=== PATIENT | female | born 1940 | race African-American/Black ===

== ENCOUNTER 2017-08-16 13:33 | Inpatient (IN) | payer MEDICAID ==
[~2017-08-16] VITALS: Ht 160 cm; Wt 78.5 kg
[~2017-08-16 13:33] MED LIST: ASPI-1169 PO; CLON0.1T PO; FURO20TA4 PO; LABE200T5 PO; LOSA100T15 PO; METF-440 PO; MULT1TAB73 PO
--- NOTE | 2017-08-16 13:50 | NUR ---
PATIENT TO ED DT GENERALIZED WEAKNESS SINCE LAST NIGHT. PATIENT IS AWAKE AMD ALERT. APPEARS IN NO DISTRESS. RESPIRATION EVEN AND UNLABORED. SKIN IS WARM TO TOUCH AND NON DIAPHORETIC, PATIENT IS AFEBRILE. VSS
[2017-08-16] MEDS ORDERED: IBUPROFEN 600 MG TABLET PO ONE ×2 (14:00→14:03)
[2017-08-16] MEDS ORDERED: IV NS 0.9% 500 ML BAG IV ONE (14:00)
[2017-08-16 14:25] LABS: BASOPHILS # (AUTO) 0.1 /CMM (0.0-0.2); BASOPHILS % (AUTO) 0.7 % (0.0-2.0); EOSINOPHILS % (AUTO) 0.1 % (0.0-6.0); HEMATOCRIT 32 % (33-45); LYMPHOCYTES # (AUTO) 1.3 /CMM (0.8-4.8); LYMPHOCYTES % (AUTO) 12.6 % (20.0-44.0); MEAN CORPUSCULAR HGB CONC 34 g/dl (31.0-36.0); MEAN CORPUSCULAR VOLUME 82 fL (82-100); MONOCYTES # (AUTO) 1.2 /CMM (0.1-1.30); MONOCYTES % (AUTO) 11.8 % (2.0-12.0); NEUTROPHILS % (AUTO) 74.8 % (43.0-81.0); PLATELET COUNT (AUTO) 149 /CMM (150-450); RDW COEFFICIENT OF VARIATION 14.4 (11.5-15.0); RED BLOOD CELL COUNT(AUTO) 3.89 MIL/uL (4.0-5.2); WHITE BLOOD COUNT (AUTO) 10.6 K/uL (4.3-11.0)
[2017-08-16 14:38] LABS: INR 1.05 (0.85-1.15)
[2017-08-16 14:41] LABS: ALANINE AMINOTRANSFERASE 171 U/L (12-78); ALBUMIN 3.2 g/dL (3.4-5.0); ALKALINE PHOSPHATASE 228 U/L (46-116); ASPARTATE AMINOTRANSFERASE 246 U/L (15-37); BILIRUBIN,DIRECT 0.2 mg/dL (0.0-0.2); BILIRUBIN,TOTAL 0.4 mg/dL (0.2-1.0); CALCIUM, SERUM 8.1 mg/dL (8.5-10.1); CARBON DIOXIDE 26 mmol/L (21-32); CHLORIDE 100 mmol/L (98-107); CREATININE 1.1 mg/dL (0.6-1.3); GLUCOSE 201 mg/dL (74-106); SODIUM SERUM 137 mmol/L (136-145); TOTAL PROTEIN, SERUM 7.4 g/dL (6.4-8.2); UREA NITROGEN, BLOOD 14 mg/dL (7-18)
[2017-08-16 14:43] LABS: TROPONIN I < 0.017 ng/mL (0.00-0.056)
[2017-08-16 14:46] LABS: POTASSIUM 2.4 mmol/L (3.5-5.1)
[2017-08-16] MEDS ORDERED: POTASSIUM CL. PREMIX PERIPHER. 50 ML IV SCH (15:00)
--- NOTE | 2017-08-16 15:17 | NUR ---
CALLED [employer] FLOORING MACHINE OPERATOR WAS PAGED.
[2017-08-16] MEDS ORDERED: POTASSIUM CHLORIDE 20 MEQ TAB.PRT.SR PO ONE ×2 (15:30→16:02)
[2017-08-16] MEDS ORDERED: IOHEXOL-350 100 ML VIAL IV ONE (15:54)
[2017-08-16 15:58] LABS: APPEARANCE,URINE Clear (CLEAR); BILIRUBIN,URINE Negative (NEGATIVE); BLOOD, URINE Small Ery/uL (NEGATIVE); COLOR,URINE Yellow (YELLOW); KETONES,URINE Negative (NEGATIVE); LEUKOCYTE ESTERASE ,URINE Trace (NEGATIVE); NITRITE, URINE Negative (NEGATIVE); PH,URINE 5.5 (5.0-8.0); PROTEIN,URINE 30 mg/dl (NEGATIVE); UGLUCOSE 250 MG/DL mg/dL (NEGATIVE); UROBILINOGEN,URINE 0.2 EU/dL (0.2)
[2017-08-16] MEDS ORDERED: POTASSIUM CL. PREMIX PERIPHER. 50 ML ONE (16:03)
[2017-08-16] MEDS ORDERED: PANT40TA2 PO (16:06)
[2017-08-16] MEDS ORDERED: INSU10VI3 SQ ×2 (16:06)
[2017-08-16] MEDS ORDERED: AMLO10TA6 PO (16:06)
[2017-08-16 16:11] LABS: BACTERIA,URINE Rare /HPF (None Seen); RBC,URINE 0-3 /HPF (0-2); SQUAMOUS EPITHELIAL CELL,UR Few /HPF (None Seen)
--- NOTE | 2017-08-16 16:44 | NUR ---
REPORT GIVEN TO RN RN. PATIENT TO START MAGNESIUM IN THE FLOOR AND WILL CONTINUE WITH POTASSIUM ORDERED
[2017-08-16] MEDS ORDERED: Z GUARD REMEDY 2 OZ OINT TP PRN (17:00)
[2017-08-16] MEDS ORDERED: ONDANSETRON HCL/PF 4 MG/2 ML VIAL IVP PRN (17:00)
[2017-08-16] MEDS ORDERED: DEXTROSE 50%-WATER 50 ML DISP.SYRIN IV PRN (17:00)
[2017-08-16] MEDS ORDERED: ZOLPIDEM TARTRATE 5 MG TABLET PO PRN (17:00)
[2017-08-16] MEDS ORDERED: HYDROCODONE/APAP 5/325MG 1 EACH TABLET PO PRN (17:00)
[2017-08-16] MEDS ORDERED: MAG HYDROX/AL HYDROX/SIMETH 30 ML UDC PO PRN (17:00)
[2017-08-16 17:08] VITALS: BP 153/63
--- NOTE | 2017-08-16 17:08 | NUR ---
SERVICE DESK ANALYST NOTES PATIENT ARRIVED VIA GURNEY FROM ER. DX DEHYDRATION, BY MENG SEGOVIA. AAO X 3, WITH DAUGHTER AND GRAND DAUGHTER. ON ROOM AIR OS SAT AT 100. NO SOB, NO PAIN, SR HR 83 ON TELE MONITOR. ONGOING 1ST BAG OF KCL 10 MEQS [ ORDERED AT ER WAS 40 MEQS] TO RT HAND G20. SITE CLEAR. AMBULATORY. SKIN INTACT. UNIT ORIENTATION DONE AND USE OF CALL LIGHT. BELONGINGS CHECKED. SAFETY MEASURES IN PLACE. WILL CONT TO MONITOR.
--- NOTE | 2017-08-16 17:36 | NUR ---
RADARMAN NOTES MENG SEGOVIA AT BEDSIDE.
[2017-08-16] MEDS: IV NS 0.9% 1,000 ML IV PRN (17:43)
[2017-08-16] MEDS: Magnesium 1GM/D5W 100ML PREMIX 100 ML IV SCH ×4 (17:55→21:48)
--- NOTE | 2017-08-16 17:55 | NUR ---
CONTROL DIRECTOR NOTES MAGNESIUM IV BAG #1 [1/2 BAG ORDERED AT ER] STARTED ON THE FLOOR.
[2017-08-16] MEDS: ENOXAPARIN SODIUM 40 MG/0.4 ML DISP.SYRIN SQ SCH ×2 (18:08→20:10)
[2017-08-16] MEDS: BLOOD SUGAR DIAGNOSTIC 1 EACH STRIP VI SCH ×2 (18:11→22:11)
[2017-08-16] MEDS: Potassium Chloride 10 MEQ, LIDOCAINE HCL/PF 1% 1 ML in IV D5W 50 ML IV SCH ×2 (18:47→20:27)
--- NOTE | 2017-08-16 18:47 | NUR ---
HOUSEKEEPING ASSISTANT NOTES PER MENG SEGOVIA ROCKET SCIENTIST, SHE WILL RE ORDER FOR KCL. PATIENT RECEIVED AT ER 40 MEQS KDUR AND 10 MEQS IV KCL. STARTED KCL BAG #1. STARTED MAGNESIUM IV 2/2.
--- NOTE | 2017-08-16 19:58 | NUR ---
RELAY SHOP TESTER NOTES PATIENT RESTING COMFORTABLY. ALL NEEDS MET AND ANTICIPATED. NO OTHER SIGNIFICANT CHANGE IN CONDITION. SAFETY MEASURES IN PLACE. ENDORSED TO NEXT SHIFT FOR GAGE.
[2017-08-16 20:00] VITALS: BP 154/64
--- NOTE | 2017-08-16 20:00 | NUR ---
RN INITIAL NOTES RECEIVED PATIENT RESTING IN BED.PT A&O X 3, ON ROOM AIR OS SAT AT 100. NO SOB, NO PAIN, SR HR 72 ON TELE MONITOR. IV IN RT HAND G20, SITE CLEAR. AMBULATORY. SKIN INTACT. SAFETY MEASURES IN PLACE. WILL CONT TO MONITOR.
[2017-08-16] MEDS: LABETALOL HCL (100MG) 100 MG TABLET PO SCH (20:26)
[2017-08-16] MEDS: METRONIDAZOLE 500MG/ NS 100ML 500 MG in PREMIX 1 EA IV SCH (22:11)
[2017-08-16] MEDS: *INSULIN REGULAR(HUMULIN R)HUM 100 UNIT/ML VIAL SQ PRN (22:19)
[2017-08-16] MEDS: ACETAMINOPHEN 325 MG TABLET PO PRN (23:40)
[2017-08-17] VITALS: BP 133/71
[2017-08-17 04:00] VITALS: BP 145/57
[2017-08-17] MEDS: METRONIDAZOLE 500MG/ NS 100ML 500 MG in PREMIX 1 EA IV SCH ×2 (05:52→10:26)
--- NOTE | 2017-08-17 06:30 | NUR ---
RN CLOSING NOTES PT REMAIN STABLE OVER NIGHT, ALL MEDICATIONS GIVEN ORDERED. PT KEPT SAFE OVER NIGHT. ALL NEEDS ATTENDED. WILL ENDORSE TO AM RN
--- NOTE | 2017-08-17 07:20 | NUR ---
RN NOTES RECEIVED PATIENT RESTING IN BED.PT A&O X 3. NO SOB, NO PAIN, SR HR 72 ON TELE MONITOR. IV IN RT HAND G20, SITE CLEAR. AMBULATORY. SKIN INTACT. SAFETY MEASURES IN PLACE. BED LOCKED AND LOWEST POSITION. CALL LIGHT WITHIN REACH. WILL CONT TO MONITOR. Addendum: 08/17/17 at 0753 by SONAL LITTLE RN PT HAS IV FLUIDS INTACT 75 CC. PLAN OF CARE DISCUSSED WITH PT Addendum: 08/17/17 at 0754 by SONAL LITTLE RN 75ML PER HOUR
[2017-08-17 07:26] LABS: BASOPHILS % (AUTO) 0.3 % (0.0-2.0); EOSINOPHILS % (AUTO) 0.7 % (0.0-6.0); HEMATOCRIT 32 % (33-45); HEMOGLOBIN 10.7 g/dL (11.5-14.8); LYMPHOCYTES # (AUTO) 2.1 /CMM (0.8-4.8); LYMPHOCYTES % (AUTO) 18.8 % (20.0-44.0); MEAN CORPUSCULAR HGB CONC 34 g/dl (31.0-36.0); MEAN CORPUSCULAR VOLUME 84 fL (82-100); MONOCYTES # (AUTO) 2.3 /CMM (0.1-1.30); MONOCYTES % (AUTO) 20.6 % (2.0-12.0); NEUTROPHILS # (AUTO) 6.6 /CMM (1.8-8.9); NEUTROPHILS % (AUTO) 59.6 % (43.0-81.0); PLATELET COUNT (AUTO) 134 /CMM (150-450); RDW COEFFICIENT OF VARIATION 15.6 (11.5-15.0); RED BLOOD CELL COUNT(AUTO) 3.81 MIL/uL (4.0-5.2); WHITE BLOOD COUNT (AUTO) 11.1 K/uL (4.3-11.0)
[2017-08-17 07:38] LABS: CALCIUM, SERUM 7.5 mg/dL (8.5-10.1); CARBON DIOXIDE 24 mmol/L (21-32); CHLORIDE 103 mmol/L (98-107); GLUCOSE 174 mg/dL (74-106); MAGNESIUM 1.7 mg/dL (1.8-2.4); PHOSPHORUS 2.4 mg/dL (2.5-4.9); SODIUM SERUM 138 mmol/L (136-145); UREA NITROGEN, BLOOD 10 mg/dL (7-18)
[2017-08-17 08:00] VITALS: BP 138/51
[2017-08-17 08:01] LABS: CHOLESTEROL 121 mg/dL (<200); HDL CHOLESTEROL 51 mg/dL (40-60); LDL 61 mg/dL (0-99); TRIGLYCERIDES 45 mg/dL (30-150)
[2017-08-17] MEDS: ACETAMINOPHEN 325 MG TABLET PO PRN ×2 (08:28→21:21)
[2017-08-17] MEDS: INSULIN REGULAR, HUMAN 100 UNIT/ML 3 ML VIAL SQ PRN ×2 (08:29→17:26)
[2017-08-17] MEDS: AMLODIPINE BESYLATE 10 MG TABLET PO SCH (08:31)
[2017-08-17] MEDS: LABETALOL HCL (100MG) 100 MG TABLET PO SCH ×2 (08:31→21:10)
[2017-08-17] MEDS: ASPIRIN 81 MG TAB.CHEW PO SCH (08:31)
[2017-08-17] MEDS: BLOOD SUGAR DIAGNOSTIC 1 EACH STRIP VI SCH ×4 (08:32→21:16)
[2017-08-17] MEDS: PANTOPRAZOLE 40 MG TABLET.DR PO SCH (08:33)
[2017-08-17 09:47] LABS: BAND % (MANUAL) 20 % (0.0-5.0); LYMPHOCYTES % (MANUAL) 20 % (16-48); MONOCYTES % (MANUAL) 19 % (0-11.0); NEUTROPHILS % (MANUAL) 41 (42-76)
[2017-08-17] MEDS: Magnesium 1GM/D5W 100ML PREMIX 100 ML IV SCH ×2 (11:35→12:34)
[2017-08-17] MEDS ORDERED: POTASSIUM CHLORIDE 20 MEQ TAB.PRT.SR PO ONE (12:30)
[2017-08-17] MEDS: *INSULIN REGULAR(HUMULIN R)HUM 100 UNIT/ML VIAL SQ PRN ×2 (12:37→21:19)
--- NOTE | 2017-08-17 13:29 | NUR ---
ELECTRIFIER OPERATOR NOTES CONSENT FOR CT SCAN OBTAINED. FAMILY AT BEDSIDE. WILL CONTINUE TO MONITOR
[2017-08-17] MEDS ORDERED: K PHOS NEUTRAL 250 MG TABLET PO ONE (14:30)
[2017-08-17] MEDS: PIPERACILLIN /TAZOBACTAM 2.25 G in IV D5W 50 ML IV SCH ×2 (14:31→22:18)
[2017-08-17] MEDS: IV NS 0.9% 1,000 ML IV PRN (14:31)
[2017-08-17 16:00] VITALS: BP 135/47
--- NOTE | 2017-08-17 16:06 | NUR ---
MS RN NOTE STOOL FOR CDIF COLLECTED ORDERED
--- NOTE | 2017-08-17 16:10 | NUR ---
MS RN NOTE ENDORSED CARE TO HAYDER OLIVEIRA
--- NOTE | 2017-08-17 16:11 | NUR ---
MS RN NOTES RECEIVED REPORT FROM HOMERO OLIVEIRA FOR GAGE.
[2017-08-17] MEDS ORDERED: CT SWABBABLE VALVE TRANS SET 1 EA INFUS.SET MC ONE (16:31)
[2017-08-17] MEDS ORDERED: IOHEXOL-300 100 ML VIAL IV ONE (16:31)
[2017-08-17] MEDS ORDERED: LEVOFLOXACIN 500 MG /D5W 100ML 500 MG in PREMIX 1 EA IV SCH (18:00)
--- NOTE | 2017-08-17 19:26 | NUR ---
DEBONER CLOSING NOTES PATIENT RESTING COMFORTABLY. CAME FROM CT OF ABDOMEN WITH CONTRAST AWAITING RESULT. IVF IN SITU INFUSING WELL. SITE CLEAR. ONGOING LEVAQUIN IV. ALL NEEDS MET AND ANTICIPATED. NO OTHER SIGNIFICANT CHANGE IN CONDITION. SAFETY MEASURES IN PLACE. CALL LIGHT WITHIN REACH. WILL ENDORSE TO NEXT SHIFT FOR GAGE.
[2017-08-17 20:00] VITALS: BP 153/64
--- NOTE | 2017-08-17 20:00 | NUR ---
RN INITIAL NOTES RECEIVED PATIENT RESTING IN BED.PT A&O X 3. DAUGHTER AT BED SIDE. ON ROOM AIR OS SAT AT 100. NO SOB, NO PAIN, SR HR 72 ON TELE MONITOR. IV IN RT HAND G20,PATENT AND INTACT, IV FLUIDS INFUSING. AMBULATORY. SKIN INTACT. SAFETY MEASURES IN PLACE. WILL CONT TO MONITOR.
[2017-08-17 20:35] VITALS: BP 143/56
[2017-08-17] MEDS: ENOXAPARIN SODIUM 40 MG/0.4 ML DISP.SYRIN SQ SCH (21:11)
[2017-08-18] MEDS: PIPERACILLIN /TAZOBACTAM 2.25 G in IV D5W 50 ML IV SCH ×2 (03:59→08:40)
[2017-08-18 04:00] VITALS: BP 138/61
--- NOTE | 2017-08-18 07:00 | NUR ---
RN NOTES RECEIVED PT ON BED, A/Ox3, RESPIRATION EVEN AND UNLABORED, ON RA , YARI ANY DISTRESS AT THIS TIME, NS AT 75CC/HR RUNNING VA R FA IV SITE G 20 , SR UP x3, CALL LIGHT WITHIN EASY REACH, BED LOCKED AND IN LOWEST POSITION , CONTINUE TO MONITOR .
[2017-08-18] MEDS: BLOOD SUGAR DIAGNOSTIC 1 EACH STRIP VI SCH ×4 (07:30→21:04)
--- NOTE | 2017-08-18 07:34 | NUR ---
RN CLOSING NOTES PATIENT RESTING COMFORTABLY. IVF INFUSING WELL. SITE CLEAR. ALL NEEDS MET AND ANTICIPATED. NO OTHER SIGNIFICANT CHANGE IN CONDITION. SAFETY MEASURES IN PLACE. CALL LIGHT WITHIN REACH. WILL ENDORSE TO NEXT SHIFT FOR GAGE.
[2017-08-18 07:50] LABS: ALANINE AMINOTRANSFERASE 83 U/L (12-78); ALBUMIN 2.4 g/dL (3.4-5.0); ALKALINE PHOSPHATASE 146 U/L (46-116); ASPARTATE AMINOTRANSFERASE 41 U/L (15-37); BILIRUBIN,DIRECT 0.2 mg/dL (0.0-0.2); BILIRUBIN,TOTAL 0.4 mg/dL (0.2-1.0); CALCIUM, SERUM 7.5 mg/dL (8.5-10.1); CARBON DIOXIDE 24 mmol/L (21-32); CHLORIDE 104 mmol/L (98-107); CREATININE 1.1 mg/dL (0.6-1.3); GLUCOSE 132 mg/dL (74-106); PHOSPHORUS 2.6 mg/dL (2.5-4.9); POTASSIUM 3.3 mmol/L (3.5-5.1); SODIUM SERUM 139 mmol/L (136-145); TOTAL PROTEIN, SERUM 6.4 g/dL (6.4-8.2); UREA NITROGEN, BLOOD 8 mg/dL (7-18)
[2017-08-18 08:00] VITALS: BP 107/56
[2017-08-18 08:01] LABS: BASOPHILS % (AUTO) 0.4 % (0.0-2.0); HEMATOCRIT 31 % (33-45); HEMOGLOBIN 10.2 g/dL (11.5-14.8); LYMPHOCYTES # (AUTO) 2.7 /CMM (0.8-4.8); LYMPHOCYTES % (AUTO) 32.3 % (20.0-44.0); MEAN CORPUSCULAR HGB CONC 33 g/dl (31.0-36.0); MEAN CORPUSCULAR VOLUME 84 fL (82-100); MONOCYTES # (AUTO) 1.3 /CMM (0.1-1.30); MONOCYTES % (AUTO) 15.2 % (2.0-12.0); NEUTROPHILS # (AUTO) 4.3 /CMM (1.8-8.9); NEUTROPHILS % (AUTO) 51.1 % (43.0-81.0); PLATELET COUNT (AUTO) 135 /CMM (150-450); RDW COEFFICIENT OF VARIATION 15.2 (11.5-15.0); RED BLOOD CELL COUNT(AUTO) 3.71 MIL/uL (4.0-5.2); WHITE BLOOD COUNT (AUTO) 8.5 K/uL (4.3-11.0)
[2017-08-18] MEDS: ASPIRIN 81 MG TAB.CHEW PO SCH (08:38)
[2017-08-18] MEDS: PANTOPRAZOLE 40 MG TABLET.DR PO SCH (08:38)
[2017-08-18] MEDS: LABETALOL HCL (100MG) 100 MG TABLET PO SCH ×2 (08:40→21:04)
[2017-08-18] MEDS: AMLODIPINE BESYLATE 10 MG TABLET PO SCH (09:00)
[2017-08-18] MEDS ORDERED: POTASSIUM CHLORIDE 20 MEQ TAB.PRT.SR PO ONE (10:00)
--- NOTE | 2017-08-18 12:00 | NUR ---
RN NOTES PT STABLE AT THIS TIME NO DISTRESS NOTED , CONTINUE TO MONITOR
[2017-08-18] MEDS: INSULIN REGULAR, HUMAN 100 UNIT/ML 3 ML VIAL SQ PRN ×2 (12:17→16:42)
[2017-08-18] MEDS: IV NS 0.9% 1,000 ML IV PRN (13:07)
[2017-08-18 14:20] LABS: EOSINOPHILS % (MANUAL) 1 % (0-4); LYMPHOCYTES % (MANUAL) 35 % (16-48); MONOCYTES % (MANUAL) 7 % (0-11.0); NEUTROPHILS % (MANUAL) 57 (42-76)
[2017-08-18] MEDS: METRONIDAZOLE 500MG/ NS 100ML 500 MG in PREMIX 1 EA IV SCH (15:28)
[2017-08-18 16:00] VITALS: BP 152/68
[2017-08-18] MEDS: CEFTRIAXONE 1 G in IV NS 0.9% 50 ML IV SCH (16:38)
[2017-08-18] MEDS: LACTOBACILLUS RHAMNOSUS GG 1 EACH CAP.SPRINK PO SCH (16:42)
--- NOTE | 2017-08-18 18:00 | NUR ---
RN NOTES PT REAMINS THE SAME NO SIGNFICNAT CHANGES NOTED ON THIS SHIFT , WILL ENDORSE TO WAREHOUSE ORDER FILLER NURSE FOR GAGE
[2017-08-18 20:00] VITALS: BP 165/66
[2017-08-18] MEDS: ENOXAPARIN SODIUM 40 MG/0.4 ML DISP.SYRIN SQ SCH (21:05)
[2017-08-18] MEDS: *INSULIN REGULAR(HUMULIN R)HUM 100 UNIT/ML VIAL SQ PRN (21:07)
[2017-08-19] MEDS: METRONIDAZOLE 500MG/ NS 100ML 500 MG in PREMIX 1 EA IV SCH ×4 (00:56→23:47)
[2017-08-19 04:00] VITALS: BP 145/57
[2017-08-19 07:04] LABS: CALCIUM, SERUM 7.7 mg/dL (8.5-10.1); CARBON DIOXIDE 23 mmol/L (21-32); CHLORIDE 102 mmol/L (98-107); GLUCOSE 124 mg/dL (74-106); POTASSIUM 3.4 mmol/L (3.5-5.1); SODIUM SERUM 137 mmol/L (136-145); UREA NITROGEN, BLOOD 5 mg/dL (7-18)
--- NOTE | 2017-08-19 07:10 | NUR ---
RN NOTES RECEIVED PT ON BED, A/OX3, ON 2L O2 N/C , RESPIRATION EVEN AND ULBORED, NO SOB NOTED, NS AT 75CC/HR RUNNING VIA R HAND IV SITE G 22, SR UP x3, CALL LIGHT WITHIN EASY REACH, BED LOCKED AND IN LOWEST POSITION , WILL CONTINUE TO MONITOR .
[2017-08-19 08:00] VITALS: BP 153/66
[2017-08-19] MEDS: LACTOBACILLUS RHAMNOSUS GG 1 EACH CAP.SPRINK PO SCH ×2 (08:03→16:28)
[2017-08-19] MEDS: ASPIRIN 81 MG TAB.CHEW PO SCH (08:03)
[2017-08-19] MEDS: AMLODIPINE BESYLATE 10 MG TABLET PO SCH (08:04)
[2017-08-19] MEDS: LABETALOL HCL (100MG) 100 MG TABLET PO SCH ×2 (08:04→21:42)
[2017-08-19] MEDS: PANTOPRAZOLE 40 MG TABLET.DR PO SCH (08:06)
[2017-08-19] MEDS: INSULIN REGULAR, HUMAN 100 UNIT/ML 3 ML VIAL SQ PRN ×3 (08:07→21:46)
[2017-08-19] MEDS: BLOOD SUGAR DIAGNOSTIC 1 EACH STRIP VI SCH ×4 (08:07→21:53)
[2017-08-19] MEDS: IV NS 0.9% 1,000 ML IV PRN (09:30)
[2017-08-19 10:23] LABS: BASOPHILS % (AUTO) 0.2 % (0.0-2.0); EOSINOPHILS % (AUTO) 0.4 % (0.0-6.0); HEMATOCRIT 31 % (33-45); HEMOGLOBIN 10.4 g/dL (11.5-14.8); LYMPHOCYTES # (AUTO) 2.9 /CMM (0.8-4.8); LYMPHOCYTES % (AUTO) 27.3 % (20.0-44.0); MEAN CORPUSCULAR HGB CONC 33 g/dl (31.0-36.0); MEAN CORPUSCULAR VOLUME 85 fL (82-100); MONOCYTES # (AUTO) 1.3 /CMM (0.1-1.30); MONOCYTES % (AUTO) 11.9 % (2.0-12.0); NEUTROPHILS # (AUTO) 6.3 /CMM (1.8-8.9); NEUTROPHILS % (AUTO) 60.2 % (43.0-81.0); PLATELET COUNT (AUTO) 155 /CMM (150-450); RDW COEFFICIENT OF VARIATION 15.7 (11.5-15.0); WHITE BLOOD COUNT (AUTO) 10.5 K/uL (4.3-11.0)
[2017-08-19] MEDS ORDERED: POTASSIUM CHLORIDE 20 MEQ TAB.PRT.SR PO SCH (10:30)
--- NOTE | 2017-08-19 12:00 | NUR ---
RN NOTES PT NPO AT THIS TIME FOR HIDA SCAN , INSULIN COVERAGE HELD AT THIS TIME
[2017-08-19] MEDS ORDERED: DIATR MEGLU/DIATRIZOATE SODIUM 120 ML BOTTLE (GASTROGRAPHIN) ONE (14:52)
--- NOTE | 2017-08-19 15:51 | NUR ---
RN NOTES PT BACK IN ROOM FROM [place].
[2017-08-19 16:00] VITALS: BP 104/68
[2017-08-19] MEDS: CEFTRIAXONE 1 G in IV NS 0.9% 50 ML IV SCH (16:00)
--- NOTE | 2017-08-19 18:00 | NUR ---
RN NOTES PT STABLE , ONE LARGE LOOSE STOOL NOTED , VSS SATABLE , SR UP x3, CALL LIGHT WITHIN EASY REACH, BED LOCKED AND IN LOWEST POSITION , WILL ENDORSE TO SERVICE COUNTER CASHIER NURSE FOR GAGE.
[2017-08-19 20:00] VITALS: BP_SYST 139; BP_SYST 173; BP_DIAS 67; BP_DIAS 76
[2017-08-19 20:38] VITALS: BP 139/67
[2017-08-19] MEDS: ENOXAPARIN SODIUM 40 MG/0.4 ML DISP.SYRIN SQ SCH (21:45)
[2017-08-20 04:00] VITALS: BP 145/57
[2017-08-20] MEDS: IV NS 0.9% 1,000 ML IV PRN ×2 (06:25→22:06)
--- NOTE | 2017-08-20 07:34 | NUR ---
MS RN OPENING NOTES RECEIVED PATIENT IN STABLE CONDITION. IN NO APPARENT DISTRESS. IV LINE IS INTACT AND PATENT. BEDSIDE RAILS ARE UPX2. BED IS LOCKED AND LOWERED. CALL LIGHT IS WITHIN REACH. WILL CONTINUE TO MONITOR.
[2017-08-20] MEDS: METRONIDAZOLE 500MG/ NS 100ML 500 MG in PREMIX 1 EA IV SCH (07:54)
[2017-08-20] MEDS: BLOOD SUGAR DIAGNOSTIC 1 EACH STRIP VI SCH ×4 (07:57→22:09)
[2017-08-20 08:00] VITALS: BP 146/47
[2017-08-20] MEDS: LABETALOL HCL (100MG) 100 MG TABLET PO SCH ×2 (08:02→20:01)
[2017-08-20] MEDS: AMLODIPINE BESYLATE 10 MG TABLET PO SCH (08:02)
[2017-08-20] MEDS: ASPIRIN 81 MG TAB.CHEW PO SCH (08:02)
[2017-08-20] MEDS: LACTOBACILLUS RHAMNOSUS GG 1 EACH CAP.SPRINK PO SCH ×2 (08:02→16:41)
[2017-08-20] MEDS: PANTOPRAZOLE 40 MG TABLET.DR PO SCH (08:02)
[2017-08-20] MEDS: INSULIN REGULAR, HUMAN 100 UNIT/ML 3 ML VIAL SQ PRN ×3 (08:13→16:48)
[2017-08-20] MEDS: CEFTRIAXONE 1 G in IV NS 0.9% 50 ML IV SCH (15:13)
[2017-08-20] MEDS: METRONIDAZOLE 500 MG TABLET PO SCH ×2 (15:13→20:00)
[2017-08-20 16:00] VITALS: BP 152/61
--- NOTE | 2017-08-20 18:07 | NUR ---
MS RN CLOSING NOTES PATIENT IS RESTING IN BED IN NO APPARENT DISTRESS. BEDSIDE RAILS ARE JUPX2. BED IS LOCKED AND LOWERED. CALL LIGHT IS WITHIN REACH. ALL NEEDS WERE MET. IV LINE IS INTACT AND PATENT. WILL ENDORSE CARE TO BOOKMOBILE CLERK NURSE FOR GAGE.
--- NOTE | 2017-08-20 19:27 | NUR ---
MS RN NOTES RECEIVED PT ON BED. ALERT ORIENTED X3. ON NASAL CANNULA SATURATING 91%. IV ACCESS ON RIGHT HAND #22 NS @75CC/HR. HEAD OF BED ELEVATED. SIDE RAILS UP. BED ALARM ON. CALL LIGHT PLACED WITHIN REACH. WILL CONTINUE TO MONITOR PT CLOSELY.
[2017-08-20] MEDS: ENOXAPARIN SODIUM 40 MG/0.4 ML DISP.SYRIN SQ SCH (20:01)
[2017-08-20 20:23] VITALS: BP 138/59
[2017-08-20] MEDS: *INSULIN REGULAR(HUMULIN R)HUM 100 UNIT/ML VIAL SQ PRN (22:09)
[2017-08-21] VITALS: BP 155/68
[2017-08-21 04:00] VITALS: BP 145/68
[2017-08-21] MEDS: METRONIDAZOLE 500 MG TABLET PO SCH ×2 (04:34→12:00)
--- NOTE | 2017-08-21 06:24 | NUR ---
MS RN NOTES NO ACUTE CHANGES NOTED DURING THEN SHIFT. DUE MEDS GIVE. WOUND CARE DONE. HEAD OF BED ELEVATED. SIDE RAILS UP. CALL LIGHT IS PLACED WITHIN REACH. WILL ENDORSE TO THE AM NURSE FOR GAGE.
--- NOTE | 2017-08-21 07:30 | NUR ---
MS/RN Patient received Patient received from slot shift supervisor. A/O X3, vital signs within normal range, no fever noted. Side rails X3 in upright position, brakes locked, bed in low setting. Call light with reach of patient. Will continue to monitor and ensure safety.
--- NOTE | 2017-08-21 07:40 | NUR ---
MS/RN Blood sugar Blood sugar at 0730 146, per sliding scale two units regular insulin administered.
[2017-08-21 08:00] VITALS: BP 166/66
[2017-08-21] MEDS: AMLODIPINE BESYLATE 10 MG TABLET PO SCH (08:02)
[2017-08-21] MEDS: ASPIRIN 81 MG TAB.CHEW PO SCH (08:02)
[2017-08-21] MEDS: LACTOBACILLUS RHAMNOSUS GG 1 EACH CAP.SPRINK PO SCH ×2 (08:02→17:09)
[2017-08-21] MEDS: BLOOD SUGAR DIAGNOSTIC 1 EACH STRIP VI SCH ×3 (08:03→17:10)
[2017-08-21] MEDS: PANTOPRAZOLE 40 MG TABLET.DR PO SCH (08:03)
[2017-08-21] MEDS: LABETALOL HCL (100MG) 100 MG TABLET PO SCH (08:03)
[2017-08-21] MEDS: INSULIN REGULAR, HUMAN 100 UNIT/ML 3 ML VIAL SQ PRN ×3 (08:10→17:09)
--- NOTE | 2017-08-21 09:29 | NUR ---
MS/RN Medications Morning medications administered as ordered, able to swallow pills without crushing.
--- NOTE | 2017-08-21 11:20 | NUR ---
MS/RN S/B Liz Mederos ROUTER MACHINE OPERATOR Seen by ROUTER MACHINE OPERATOR - patient to be discharged to home later this afternoon with prescription to complete coures of oral antibiotics. Daughter will provide transport.
[2017-08-21] MEDS ORDERED: LABE100T15 PO (11:39)
[2017-08-21] MEDS ORDERED: ASPI-1169 PO (11:39)
[2017-08-21] MEDS ORDERED: LEVO500T75 PO (11:39)
--- NOTE | 2017-08-21 11:52 | NUR ---
MS/RN Blood sugar Blood sugar 298, will give insulin per sliding scale.
[2017-08-21] MEDS: CEFTRIAXONE 1 G in IV NS 0.9% 50 ML IV SCH (14:11)
[2017-08-21 16:00] VITALS: BP 165/67
--- NOTE | 2017-08-21 17:37 | NUR ---
MS/cattle sticker Daughter at bedside and education provided to both patient and daughter. Instructed to follow up with primary care doctor in 5-10 days and to provide them with a copy of her medical record. Also reminded to ask for a referral to a GI specialist for possible removal of stent. Information provided to patient regarding arranging office visit with Dr Rangel. Stated that they would be calling tomorrow to make all appointments. Heplock and name bands removed, all personal belongings accounted for on personal property list. Assistance provided with dressing, escorted to main lobby by MICROFILMING DOCUMENT PREPARER, daughter providing transport.
== END 2017-08-21 18:06 | disposition home or self-care (01) | DRG 720 ==
LOC: ER 13:37 → TELE1 16:18 → MEDSG1 08-17 08:33
PROVIDERS: ADMIT Nurse Practitioner Acute Care; ATTEND Nurse Practitioner Acute Care
DX: A41.9 Sepsis, unspecified organism (principal); E11.42 Type 2 diabetes mellitus with diabetic polyneuropathy; E11.65 Type 2 diabetes mellitus with hyperglycemia; E44.1 Mild protein-calorie malnutrition; E86.0 Dehydration; E83.42 Hypomagnesemia; E87.6 Hypokalemia; R74.0 Nonspecific elevation of levels of transaminase and lactic acid dehydrogenase [LDH]; A09 Infectious gastroenteritis and colitis, unspecified; E11.319 Type 2 diabetes mellitus with unspecified diabetic retinopathy without macular edema; E11.36 Type 2 diabetes mellitus with diabetic cataract; H40.9 Unspecified glaucoma; H54.62 Unqualified visual loss, left eye, normal vision right eye; D63.8 Anemia in other chronic diseases classified elsewhere; Z90.49 Acquired absence of other specified parts of digestive tract; I25.10 Atherosclerotic heart disease of native coronary artery without angina pectoris; Z79.82 Long term (current) use of aspirin; Z79.84 Long term (current) use of oral hypoglycemic drugs; B96.89 Other specified bacterial agents as the cause of diseases classified elsewhere; I10 Essential (primary) hypertension; R07.9 Chest pain, unspecified; K80.50 Calculus of bile duct without cholangitis or cholecystitis without obstruction
CPT/HCPCS: 36415; 71045-TC; 74246-TC; 78226; 80048-TC; 80061-TC; 80076-TC; 81000-TC; 82962-TC; 83605-TC; 83735-TC; 84100-TC; 84484-TC; 85025-TC; 85378-TC; 85730-TC; 87040-TC; 87045-TC; 87081-TC; 87086-TC; 87186-TC; 93307-TC; A4216; A4606; A9537; J0696; J1650; J1815; J1956; J2405; J2543; J3475; J3480; J3490; J7030; J7040; J7060; Q9963; Q9967; Z7610

== ENCOUNTER 2017-09-08 07:05 | Inpatient (IN) | payer MEDICAID ==
[~2017-09-08] VITALS: Ht 161.3 cm; Wt 77.6 kg
[~2017-09-08 07:05] MED LIST changes: +AMLO10TA6 PO; -CLON0.1T PO; -FURO20TA4 PO; +INSU10VI3 SQ; +LABE100T15 PO; -LABE200T5 PO; +LEVO500T75 PO; -LOSA100T15 PO; -METF-440 PO; -MULT1TAB73 PO; +PANT40TA2 PO
--- NOTE | 2017-09-08 07:05 | NUR ---
BB DAUGHTER C/O FEELING WEAK AND DIZZY SINCE LAST NIGHT
[2017-09-08] MEDS ORDERED: ONDANSETRON HCL/PF 4 MG/2 ML VIAL ONE ×2 (07:21→08:18)
[2017-09-08] MEDS ORDERED: ONDANSETRON HCL/PF 4 MG/2 ML VIAL IVP ONE (07:30)
[2017-09-08] MEDS ORDERED: IV NS 0.9% 1,000 ML BAG IV ONE (07:30)
[2017-09-08 07:51] LABS: BASOPHILS # (AUTO) 0.1 /CMM (0.0-0.2); BASOPHILS % (AUTO) 0.8 % (0.0-2.0); HEMATOCRIT 35 % (33-45); HEMOGLOBIN 11.7 g/dL (11.5-14.8); LYMPHOCYTES # (AUTO) 1.4 /CMM (0.8-4.8); LYMPHOCYTES % (AUTO) 17.4 % (20.0-44.0); MEAN CORPUSCULAR HGB CONC 34 g/dl (31.0-36.0); MEAN CORPUSCULAR VOLUME 82 fL (82-100); MONOCYTES # (AUTO) 0.2 /CMM (0.1-1.30); MONOCYTES % (AUTO) 2.1 % (2.0-12.0); NEUTROPHILS # (AUTO) 6.5 /CMM (1.8-8.9); NEUTROPHILS % (AUTO) 79.7 % (43.0-81.0); PLATELET COUNT (AUTO) 166 /CMM (150-450); RDW COEFFICIENT OF VARIATION 16.1 (11.5-15.0); RED BLOOD CELL COUNT(AUTO) 4.22 MIL/uL (4.0-5.2); WHITE BLOOD COUNT (AUTO) 8.2 K/uL (4.3-11.0)
[2017-09-08 08:03] LABS: CALCIUM, SERUM 9.5 mg/dL (8.5-10.1); CARBON DIOXIDE 26 mmol/L (21-32); CHLORIDE 98 mmol/L (98-107); CREATININE 0.8 mg/dL (0.6-1.3); GLUCOSE 274 mg/dL (74-106); POTASSIUM 4.4 mmol/L (3.5-5.1); SODIUM SERUM 134 mmol/L (136-145); UREA NITROGEN, BLOOD 16 mg/dL (7-18)
[2017-09-08 08:09] LABS: ALANINE AMINOTRANSFERASE 29 U/L (12-78); ALBUMIN 3.5 g/dL (3.4-5.0); ALKALINE PHOSPHATASE 114 U/L (46-116); ASPARTATE AMINOTRANSFERASE 34 U/L (15-37); BILIRUBIN,TOTAL 0.5 mg/dL (0.2-1.0); INR 0.96 (0.87-1.13); TOTAL PROTEIN, SERUM 8.1 g/dL (6.4-8.2)
[2017-09-08 08:10] LABS: TROPONIN I < 0.017 ng/mL (0.00-0.056)
[2017-09-08] MEDS ORDERED: MECLIZINE HCL 25 MG TABLET ONE (08:19)
[2017-09-08 08:26] LABS: APPEARANCE,URINE CLEAR (CLEAR); BILIRUBIN,URINE NEGATIVE (NEGATIVE); BLOOD, URINE TRACE Ery/uL (NEGATIVE); COLOR,URINE YELLOW (YELLOW); KETONES,URINE TRACE (NEGATIVE); LEUKOCYTE ESTERASE ,URINE NEGATIVE (NEGATIVE); NITRITE, URINE NEGATIVE (NEGATIVE); PH,URINE 7.5 (5.0-8.0); PROTEIN,URINE 1+ mg/dl (NEGATIVE); UGLUCOSE 3+ mg/dL (NEGATIVE); UROBILINOGEN,URINE 0.2 EU/dL (0.2)
[2017-09-08] MEDS ORDERED: MECLIZINE HCL 12.5 MG TABLET PO ONE (08:30)
[2017-09-08] MEDS ORDERED: ONDANSETRON HCL/PF - ER 4 MG/2 ML VIAL IV ONE (08:30)
[2017-09-08 08:48] LABS: BACTERIA,URINE None seen /HPF (None Seen); RBC,URINE NONE SEEN /HPF (0-2); SQUAMOUS EPITHELIAL CELL,UR Rare /HPF (None Seen); WBC,URINE NONE SEEN /HPF (0-3)
--- NOTE | 2017-09-08 09:19 | NUR ---
PT BACK FROM CT
[2017-09-08] MEDS ORDERED: ASPIRIN 325 MG TABLET PO ONE (11:00)
[2017-09-08] MEDS ORDERED: ASPIRIN 325 MG TABLET ONE (11:05)
--- NOTE | 2017-09-08 11:38 | NUR ---
CALLED [facility] FOR PANEL CALL AND DR RODRIGUEZ WAS PAGED
[2017-09-08] MEDS ORDERED: LABE200T5 PO (11:46)
--- NOTE | 2017-09-08 12:01 | NUR ---
CALLED NURSING AUTOMOTIVE SALES REPRESENTATIVE AND REQUESTED A TELE BED FOR THIS PT.
--- NOTE | 2017-09-08 12:27 | NUR ---
PT IS ASSIGNED TO [facility]#: [id number], PT IS DIAGNOSED WITH ANEMIA, AND DR RODRIGUEZ IS THE ACCEPTING MD.
--- NOTE | 2017-09-08 13:02 | NUR ---
GAVE REPORT TO [place] TELE ROOM [address] RODRIGUEZ ADMITTING
--- NOTE | 2017-09-08 13:15 | NUR ---
tele hand polisher: admission admitted this 77 yr old female pt from [facility] [place] with dx: ischemic stroke. awake, a/ox3 with forgetfulness. speech clear and able to make needs known. daughter at bedside. stroke packet provided and education provided. oriented to room and surroundings. for p.t., o.t. and s.t. eval. pt made aware. tele sr=78. in no apparent distress noted. instructed to call for assistance. will continue to monitor.
[2017-09-08 13:20] VITALS: BP 155/74
[2017-09-08] MEDS ORDERED: BLOOD SUGAR DIAGNOSTIC 1 EACH STRIP IN SCH (13:30)
--- NOTE | 2017-09-08 14:45 | NUR ---
tele automotive tire technician: p.t. eval p.t. in room and will hold off eval until tomorrow per therapist.
--- NOTE | 2017-09-08 15:00 | NUR ---
tele senior quality methods specialist: s.t eval speech therapist eval done at bedside. diet change per s.t. order acknowledged.
[2017-09-08 15:30] VITALS: BP 155/74
--- NOTE | 2017-09-08 15:30 | NUR ---
tele store detective: o.t. eval o.t. in room for eval at this time.
[2017-09-08] MEDS: IV NS 0.9% 1,000 ML IV PRN (15:46)
[2017-09-08] MEDS: SIMVASTATIN 20 MG TABLET PO SCH ×2 (15:50→21:51)
[2017-09-08] MEDS: PANTOPRAZOLE 40 MG TABLET.DR PO SCH (15:50)
[2017-09-08 16:00] VITALS: BP 158/69
--- NOTE | 2017-09-08 16:10 | NUR ---
tele underground mining section foreman: notes pt c/o dizziness and headache. b/p 158/69. sinus rhythm 80's on the monitor. denies n/v. dr. waters notified, left message thru exchange.
--- NOTE | 2017-09-08 16:35 | NUR ---
tele equipment operator wage hand: notes dr. waters called back and updated pt's condition with instruction to give zofran and received tylenol 650mg po q6hr prn. orders read back and carried out and acknowledged.
[2017-09-08] MEDS: hydrALAZINE HCL 50 MG TABLET PO SCH (16:36)
[2017-09-08] MEDS: ONDANSETRON HCL/PF 4 MG/2 ML VIAL IV PRN (16:45)
--- NOTE | 2017-09-08 16:45 | NUR ---
tele production wood craftsman: notes zofran 4mg ivp given by rn. instructed to call for assistance. will continue to monitor.
[2017-09-08] MEDS: ACETAMINOPHEN 325 MG TABLET PO PRN (16:47)
[2017-09-08] MEDS: BLOOD SUGAR DIAGNOSTIC 1 EACH STRIP IN SCH ×2 (16:52→21:59)
[2017-09-08] MEDS: NITROGLYCERIN 30 GM TUBE TP SCH ×2 (17:34→21:51)
--- NOTE | 2017-09-08 18:30 | NUR ---
tele mineral ore processing labourer: notes 2d echo in progress. needs attended. instructed to call for assistance. will continue to monitor.
--- NOTE | 2017-09-08 19:00 | NUR ---
tele property management intern: notes report given to jayda sanders) for continuity of care.
--- NOTE | 2017-09-08 19:30 | NUR ---
MS/CHEESE SPECIALIST OPENING NOTE Patient was seen sleeping in bed but awakened easily to name. Patient is AAOx4, breathing on RA with no SOB, and no signs of acute distress. Neuro assessment completed - no facial droop, no arm drift, no slurred speech or mental changes; upper and lower body strength 4/5. NS is running at 100 ml/hr through left AC 18g. Bed is in low/locked position, two side rails up, and call juarez within reach. Patient has no immediate needs/concerns at this time. Will continue to monitor.
[2017-09-08 20:00] VITALS: BP 141/75
[2017-09-08 20:04] VITALS: BP 141/75
[2017-09-08] MEDS: INSULN 70/30 ASP+PRT/ASP MIX 100 UNIT/ML CARTRIDGE SQ SCH (22:02)
--- NOTE | 2017-09-08 22:28 | NUR ---
MS RN NOTE - Accu-check Order Change Patient was due for Insulin Novolog 70/30 hs (10 units). Blood glucose was 229; there was an order noted under Accu-Check for BG q6h if NPO and to call MD for BG >150 (pt no longer NPO). Lulu Simmons MARKETING PRODUCTION SPECIALIST was notified with the specifics above as well as patient diagnosis. Per Lulu Simmons, "please discontinue order to call MD for BG >150". Misc Order was entered to patient's EMR and will be noted during shift report.
[2017-09-09] VITALS: BP 146/64
[2017-09-09] MEDS: IV NS 0.9% 1,000 ML IV PRN ×3 (01:31→23:32)
[2017-09-09 04:00] VITALS: BP 131/68
[2017-09-09] MEDS: ONDANSETRON HCL/PF 4 MG/2 ML VIAL IV PRN (05:12)
--- NOTE | 2017-09-09 05:15 | NUR ---
MS RN NOTE - Zofran Patient woke from sleep with complaints of vertigo. Per MD notes and shift report, 4mg Zofran administered IV to help alleviate dizziness/vertigo. Patient is otherwise AAOx3, no mental changes, no paralysis/weakness noted.
[2017-09-09] MEDS: ACETAMINOPHEN 325 MG TABLET PO PRN ×2 (05:39→16:06)
[2017-09-09] MEDS: BLOOD SUGAR DIAGNOSTIC 1 EACH STRIP IN SCH ×4 (06:07→21:48)
--- NOTE | 2017-09-09 06:30 | NUR ---
MS RN NOTE - BG Patient's BG level this AM at 0600 was 75; since patient is diabetic, I gave her 8 oz of orange juice to drink and rechecked 20 minutes later; BG up to 84. Additional orange juice and kristopher crackers at bedside (patient able to eat/drink independently).
[2017-09-09 06:33] LABS: INR 1.03 (0.87-1.13)
[2017-09-09 06:34] LABS: BASOPHILS % (AUTO) 0.3 % (0.0-2.0); EOSINOPHILS % (AUTO) 0.5 % (0.0-6.0); HEMATOCRIT 33 % (33-45); HEMOGLOBIN 10.8 g/dL (11.5-14.8); LYMPHOCYTES # (AUTO) 3.6 /CMM (0.8-4.8); LYMPHOCYTES % (AUTO) 35.4 % (20.0-44.0); MEAN CORPUSCULAR HGB CONC 33 g/dl (31.0-36.0); MEAN CORPUSCULAR VOLUME 83 fL (82-100); MONOCYTES # (AUTO) 0.8 /CMM (0.1-1.30); NEUTROPHILS # (AUTO) 5.6 /CMM (1.8-8.9); NEUTROPHILS % (AUTO) 55.8 % (43.0-81.0); PLATELET COUNT (AUTO) 149 /CMM (150-450); RDW COEFFICIENT OF VARIATION 15.4 (11.5-15.0); RED BLOOD CELL COUNT(AUTO) 3.92 MIL/uL (4.0-5.2); WHITE BLOOD COUNT (AUTO) 10.1 K/uL (4.3-11.0)
[2017-09-09 06:52] LABS: CALCIUM, SERUM 8.8 mg/dL (8.5-10.1); CARBON DIOXIDE 27 mmol/L (21-32); CHLORIDE 104 mmol/L (98-107); CREATININE 0.9 mg/dL (0.6-1.3); GLUCOSE 82 mg/dL (74-106); POTASSIUM 3.3 mmol/L (3.5-5.1); SODIUM SERUM 140 mmol/L (136-145); UREA NITROGEN, BLOOD 11 mg/dL (7-18)
[2017-09-09 06:55] LABS: CHOLESTEROL 197 mg/dL (<200); HDL CHOLESTEROL 62 mg/dL (40-60); LDL 117 mg/dL (0-99); TRIGLYCERIDES 74 mg/dL (30-150)
--- NOTE | 2017-09-09 07:17 | NUR ---
MS RN CLOSING NOTE Patient was seen sitting up in bed AAOx4, breathing on RA with no SOB, no signs of acute distress, vitals WNL. Pt still complains of dizziness, but all neuro assessments were negative throughout the night - no mental changes, no slurred speech, no facial droop, no arm drift, no extremity weakness/paralysis. Patient slept well most of the night; all needs were met. NS at 100ml/hr is running through the left AC. Bed is in low/locked position, two side rails up, call juarez within reach. Patient care endorsed to day shift nurse.
--- NOTE | 2017-09-09 07:30 | NUR ---
tele yarn dumper: initial assessment received pt in bed awake, a/ox3-4. no c/o pain at this time. instructed to call for assistance. will continue to monitor.
[2017-09-09 08:00] VITALS: BP 148/71
--- NOTE | 2017-09-09 08:20 | NUR ---
tele wealth management manager: md visit seen and examined by dr. waters at this time.
--- NOTE | 2017-09-09 08:30 | NUR ---
tele stemming machine operator: neuro consult seen and examined by dr. hickman at this time.
--- NOTE | 2017-09-09 08:41 | NUR ---
tele fish technologist: cardio consult seen and examined by dr. freeman with orders. orders acknowledged. ok to transfer to med-surg status per dr. freeman.
[2017-09-09] MEDS: hydrALAZINE HCL 50 MG TABLET PO SCH ×3 (09:00→17:50)
[2017-09-09] MEDS: PANTOPRAZOLE 40 MG TABLET.DR PO SCH (09:00)
[2017-09-09] MEDS: NITROGLYCERIN 30 GM TUBE TP SCH ×2 (09:01→21:27)
[2017-09-09] MEDS: INSULN 70/30 ASP+PRT/ASP MIX 100 UNIT/ML CARTRIDGE SQ SCH ×2 (09:02→21:39)
[2017-09-09 09:14] LABS: THYROID STIMULATING HORMONE 0.798 uIU/mL (0.358-3.74)
[2017-09-09] MEDS: ASPIRIN 325 MG TABLET PO SCH (09:20)
--- NOTE | 2017-09-09 10:00 | NUR ---
tele tube balancer: notes tele removed as ordered.
--- NOTE | 2017-09-09 10:30 | NUR ---
m/s clinical statistics manager: notes p.t. eval done at this time, pt was unsteady per therapist.
[2017-09-09] MEDS ORDERED: POTASSIUM CHLORIDE 20 MEQ TAB.PRT.SR PO ONE (11:30)
--- NOTE | 2017-09-09 14:00 | NUR ---
m/s fabrication welder: notes resting comfortable in bed with no distress noted. will continue to monitor.
[2017-09-09] MEDS: MECLIZINE HCL 25 MG TABLET PO SCH ×2 (14:21→21:26)
--- NOTE | 2017-09-09 15:57 | NUR ---
Patient lives locally at home with family. She ambulates with a cane and independent with adl's. Has a cane, walker and shower chair, no homehealth reported. Has good family support. Family will provide transportation when discharge. Addendum: 09/09/17 at 1558 by ADE SAUNDERS RN Amended: Links added.
[2017-09-09 16:00] VITALS: BP 141/67
--- NOTE | 2017-09-09 17:30 | NUR ---
m/s issuing operator: notes pt had late lunch around 4pm and having dinner at this time. refused blood sugar check. will continue to monitor.
--- NOTE | 2017-09-09 18:35 | NUR ---
m/s dispensing optician apprentice: notes o.t. tx done at bedside. needs attended. back in bed. kept comfortable. instructed to call for assistance. will continue to monitor.
--- NOTE | 2017-09-09 19:30 | NUR ---
MS RN OPENING NOTE Patient was seen lying in bed AAOx4, breathing on RA with no SOB, and no signs of acute distress. Patient still complains of some dizziness; MD ordered new med, meclizine, which will be given tonight. Neuro assessment was negative - no facial droop, no mental changes, no arm/leg drift, no extremity weakness or paralysis. NS at 100 mL/hr is running through the left AC. Bed is in the low/locked position, two side rails up, call juarez within reach. Patient has no immediate needs/concerns at this time. Will continue to monitor.
[2017-09-09 20:00] VITALS: BP 149/76
[2017-09-09 20:15] VITALS: BP 149/76
[2017-09-09] MEDS: SIMVASTATIN 20 MG TABLET PO SCH (21:26)
[2017-09-10] MEDS: MECLIZINE HCL 25 MG TABLET PO SCH ×3 (05:39→21:15)
[2017-09-10] MEDS: BLOOD SUGAR DIAGNOSTIC 1 EACH STRIP IN SCH ×4 (05:40→23:26)
--- NOTE | 2017-09-10 07:20 | NUR ---
MS RN OPENING NOTE RECEIVED BEDSIDE SBAR REPORT ON THE PATIENT. PATIENT IS A/O X4, AWAKE AND RESPONSIVE IN BED. BED IS LOCKED IN LOWEST POSITION, SIDE RAILS UP X3, BED ALARM IS ON. CALL LIGHT WITHIN REACH. EDUCATED TO CALL FOR ASSISTANCE USING THE CALL LIGHT AND VERBALIZED UNDERSTANDING. DENIES PAIN/DISCOMFORT AT THIS TIME. CHEST IS RISING EQUALLY BILATERALLY. WILL CONTINUE TO ASSESS/MONITOR THROUGHOUT THE SHIFT.
--- NOTE | 2017-09-10 07:57 | NUR ---
MS RN CLOSING NOTE Patient seen in bed AAOx4, breathing on RA with no SOB, and no signs of acute distress. All neuro assessments overnight were normal, vital signs remained stable. Patient slept well overnight with no complaints. NS at 100ml/hr is running through left AC 18g. Bed low/locked, two side rails up, call juarez within reach. Pt care endorsed to day shift nurse.
[2017-09-10 08:00] VITALS: BP 160/89
[2017-09-10 09:00] VITALS: BP 160/89
[2017-09-10] MEDS: INSULN 70/30 ASP+PRT/ASP MIX 100 UNIT/ML CARTRIDGE SQ SCH ×2 (09:00→10:31)
--- NOTE | 2017-09-10 09:00 | NUR ---
INSULIN 70/30 WAS ADMINISTERED 10 UNITS SUBQ PER PATIENT'S REQUEST SCANNED THE NIGHT DOSE'S BAR CODE. PATIENT STATES THAT SHE IS AFRAID THAT HER BLOOD GLUCOSE WILL DROP. NOTIFIED. NO NEW ORDERS RECEIVED.
--- NOTE | 2017-09-10 09:09 | NUR ---
TEXTED DR. LUGO FOR MRI APPROVAL.
[2017-09-10] MEDS: ASPIRIN 325 MG TABLET PO SCH (09:25)
[2017-09-10] MEDS: hydrALAZINE HCL 50 MG TABLET PO SCH ×3 (09:25→17:27)
[2017-09-10] MEDS: PANTOPRAZOLE 40 MG TABLET.DR PO SCH (09:25)
[2017-09-10] MEDS: NITROGLYCERIN 30 GM TUBE TP SCH ×2 (10:23→21:15)
--- NOTE | 2017-09-10 13:04 | NUR ---
PATIENT WENT TO MRI IN STABLE CONDITION VIA WHEELCHAIR.
--- NOTE | 2017-09-10 13:57 | NUR ---
Patient refused hydralazine. risks and benefits discussed at the bedside. Patient verbalized understanding of the teachings and refused.
[2017-09-10 15:43] VITALS: BP 133/72
[2017-09-10] MEDS ORDERED: IOHEXOL-350 100 ML VIAL IV ONE (16:16)
--- NOTE | 2017-09-10 17:55 | NUR ---
Received verbal report for Lovenox 30 mg subQ daily and mild sliding scale. Read back and verified. Will follow order as received.
[2017-09-10] MEDS ORDERED: DEXTROSE 50%-WATER 50 ML DISP.SYRIN IV PRN (18:00)
--- NOTE | 2017-09-10 19:15 | NUR ---
BINDERY WORKER OPENING NOTE RECEIVED PATIENT IN BED, ALERT ORIENTED X4. ON ROOM AIR, TOLERATING WELL. RESPIRATIONS EVEN AND UNLABORED. IN NO APPARENT DISTRESS AT THIS TIME. PATIENT DENIES SOB. SAYS HE HAS PAIN IN LEFT KNEE 07/29. ABLE TO COMMUNICATE NEEDS. PATIENT WITH RIGHT HAND IVC 18G, PATENT AND INTACT, NO FLUIDS RUNNING AT THIS TIME. GIBSON CATH IN PLACE. WELL DRAINING CLEAR YELLOW URINE. KEPT CLEAN AND COMFORTABLE, SAFETY MEASURES IN PLACE, BED IN LOW LOCKED POSITION, SIDE RAILS UP X2, CALL LIGHT WITHIN EASY REACH. WILL CONTINUE TO MONITOR. Addendum: 09/10/17 at 1953 by KLAUS LI RN OPENING NOTE INTENDED FOR DIFFERENT PATIENT. NEW NOTE PLACED FOR HYUN GARRICK ABOVE.
--- NOTE | 2017-09-10 19:20 | NUR ---
MS RN OPENING NOTE RECEIVED PATIENT IN BED, ALERT ORIENTED X4, ON ROOM AIR TOLERATING WELL. IN NO APPARENT DISTRESS OR DISCOMFORT AT THIS TIME. RESPIRATIONS EVEN AND UNLABORED. DENIES PAIN AND SOB AT THIS TIME. NO FACIAL ASYMMETRY NOTED. SPEECH IS CLEAR. DENIES WEAKNESS IN EXTREMITIES. EXTREMITY STRENGTHS ARE EQUAL BILATERALLY. PATIENT WITH LEFT AX IVC 18G, PATENT AND INTACT. PATIENT IS ABLE TO COMMUNICATE NEEDS. FAMILY AT BEDSIDE. KEPT CLEAN AND COMFORTABLE. SAFETY MEASURES IN PLACE, BED IN LOW LOCKED POSITION, SIDE RAILS UP X2, CALL LIGHT WITHIN EASY REACH. WILL CONTINUE TO MONITOR.
--- NOTE | 2017-09-10 19:47 | NUR ---
MS RN CLOSING NOTE GAVE BEDSIDE SBAR REPORT ON THE PATIENT. PATIENT IS A/O X4, AWAKE AND RESPONSIVE IN BED. BED IS LOCKED IN LOWEST POSITION, SIDE RAILS UP X3, BED ALARM IS ON. CALL LIGHT WITHIN REACH. FAMILY AT THE BEDSIDE. . EDUCATED TO CALL FOR ASSISTANCE USING THE CALL LIGHT AND VERBALIZED UNDERSTANDING. DENIES PAIN/DISCOMFORT AT THIS TIME. CHEST IS RISING EQUALLY BILATERALLY. ENDORSED TO THE ELECTRICAL CONTROL ASSEMBLER NURSE FOR GAGE
[2017-09-10 20:00] VITALS: BP 155/73
[2017-09-10 20:06] VITALS: BP 155/73
[2017-09-10] MEDS ORDERED: ENOXAPARIN SODIUM 30 MG/0.3 ML DISP.SYRIN SQ SCH (21:00)
[2017-09-10] MEDS: SIMVASTATIN 20 MG TABLET PO SCH (21:15)
[2017-09-10] MEDS: INSULIN REGULAR, HUMAN 100 UNIT/ML 3 ML VIAL SQ PRN (23:34)
[2017-09-11] VITALS (10 sets, daily range): BP systolic 121–192; BP diastolic 66–91
[2017-09-11] MEDS: BLOOD SUGAR DIAGNOSTIC 1 EACH STRIP IN SCH ×5 (05:06→21:25)
[2017-09-11] MEDS: INSULIN REGULAR, HUMAN 100 UNIT/ML 3 ML VIAL SQ PRN ×4 (05:16→21:29)
[2017-09-11] MEDS: MECLIZINE HCL 25 MG TABLET PO SCH ×3 (05:17→21:25)
--- NOTE | 2017-09-11 06:50 | NUR ---
MS RN CLOSING NOTE PATIENT IN BED, SLEEPING EASILY AROUSED WITH VERBAL STIMULI, ORIENTED X4, ON ROOM AIR TOLERATING WELL. IN NO APPARENT DISTRESS OR DISCOMFORT AT THIS TIME. RESPIRATIONS EVEN AND UNLABORED. DENIES PAIN AND SOB AT THIS TIME. NO FACIAL ASYMMETRY NOTED. SPEECH IS CLEAR. DENIES WEAKNESS IN EXTREMITIES. EXTREMITY STRENGTHS ARE EQUAL BILATERALLY. PATIENT WITH LEFT AC IVC 18G, PATENT AND INTACT WITH FLUIDS RUNNING AT 100ML/HR. PATIENT IS ABLE TO COMMUNICATE NEEDS. KEPT CLEAN AND COMFORTABLE. ALL NEEDS ATTENDED, SAFETY MEASURES IN PLACE, BED IN LOW LOCKED POSITION, SIDE RAILS UP X2, CALL LIGHT WITHIN EASY REACH. WILL ENDORSE TO AM NURSE FOR GAGE.
--- NOTE | 2017-09-11 07:22 | NUR ---
MS RN OPENING NOTE RECEIVED BEDSIDE SBAR REPORT ON THE PATIENT. PATIENT IS A/O X4, ASLEEP, EASILY AWAKEN IN BED. BED IS LOCKED IN LOWEST POSITION, SIDE RAILS UP X3, BED ALARM IS ON. CALL LIGHT WITHIN REACH. EDUCATED TO CALL FOR ASSISTANCE USING THE CALL LIGHT AND VERBALIZED UNDERSTANDING. DENIES PAIN/DISCOMFORT AT THIS TIME. CHEST IS RISING EQUALLY BILATERALLY. WILL CONTINUE TO ASSESS/MONITOR THROUGHOUT THE SHIFT.
[2017-09-11] MEDS: PANTOPRAZOLE 40 MG TABLET.DR PO SCH (07:28)
--- NOTE | 2017-09-11 08:11 | NUR ---
AT THE BEDSIDE WITH DR RODRIGUEZ. DISCUSSING POSSIBLE DISCHARGE TODAY.
[2017-09-11] MEDS ORDERED: CLOPIDOGREL BISULFATE 75 MG TABLET PO ONE (09:30)
[2017-09-11] MEDS: hydrALAZINE HCL 50 MG TABLET PO SCH ×3 (09:37→16:44)
[2017-09-11] MEDS: NITROGLYCERIN 30 GM TUBE TP SCH ×2 (09:39→21:26)
[2017-09-11] MEDS: INSULN 70/30 ASP+PRT/ASP MIX 100 UNIT/ML CARTRIDGE SQ SCH ×2 (09:47→21:31)
--- NOTE | 2017-09-11 15:01 | NUR ---
patient's bp noted elevated at 192/[address] Bernard. Received a telephone order for Amlodipine 10 mg PO one time now. Read back and verified. Will follow order as received.
[2017-09-11] MEDS ORDERED: AMLODIPINE BESYLATE 10 MG TABLET PO ONE (15:30)
--- NOTE | 2017-09-11 17:01 | NUR ---
PT Sergio at the bedside. BP stabilized. Patient refused to ambulate with the Pt stating that she wants to have a bowel movement. Patient assisted to the bedside commode. BP is trending down.
--- NOTE | 2017-09-11 18:20 | NUR ---
RN attended to patient's family's call. Patient sitting on the bedside commode stating " I am so dizzy. I am feeling sick". Patient safely assisted to bed. BP measured. BP monitor reading 168/[address] Bernard. obtained an order to administer Clonidine 0.2 mg PO x1 now. read back and verified. Received an order to hold discharge for now an keep the patient overnight. Will follow orders as received.
[2017-09-11] MEDS ORDERED: CLONIDINE HCL 0.1 MG TABLET PO ONE (19:00)
--- NOTE | 2017-09-11 19:27 | NUR ---
Spoke on the phone with Yoan, the transitional care liaison from [facility]. Per Yoan, the home health care case manager at [facility] spoke to them and arranged a post-discharge filler picker by lucille chan. Per Yoan have the patient ready for discharge with the exitcare completed by 2pm. Endorsed to Braulio, the grinder needle tip nurse.
--- NOTE | 2017-09-11 19:43 | NUR ---
MS RN CLOSING NOTE GAVE BEDSIDE SBAR REPORT ON THE PATIENT. PATIENT IS A/O X4, AWAKE AND RESPONSIVE IN BED. BED IS LOCKED IN LOWEST POSITION, SIDE RAILS UP X3, BED ALARM IS ON. CALL LIGHT WITHIN REACH. FAMILY AT THE BEDSIDE. . EDUCATED TO CALL FOR ASSISTANCE USING THE CALL LIGHT AND VERBALIZED UNDERSTANDING. DENIES PAIN/DISCOMFORT AT THIS TIME. BLOOD PRESSURE TRENDING DOWN. MOST CURRENT BP 159/71 HR 81. CHEST IS RISING EQUALLY BILATERALLY. ENDORSED TO THE DIAMOND MOUNTER NURSE FOR GAGE
--- NOTE | 2017-09-11 19:45 | NUR ---
RN INITIAL NOTES: RECEIVED REPORT FROM JOHAN OLIVEIRA, PT IN BED, AWAKE, A/OX 3 BUT FORGETFUL AT TIMES. ON RA RESPIRATION EVEN AND UNLABORED. DENIES ANY PAIN OR DISCOMFORT AT THIS TIME. DAUGHTER AT BED SIDE. IV ACCESS ON LEFT AC PATENT AND FLUSHING WELL, INFUSING WITH NS AT 100ML/HR. IV ACCESS FREE FROM ANY S/S OF INFILTRATION OR REDNESS. SCD IN USE. BLE OFFLOADED. PT BP DURING THE DAY BEEN ELEVATED, AWARE, GIVEN CATAPRES 0.2MG AROUND 1900, RECHECK BP NOW ITS 159/71 HR 79 96% ON RA. DISCUSSED WITH PT AND PT'S DAUGHTER REGARDING PLAN OF CARE, ALL AGREED. SAFETY PRECAUTIONS FOR FALL INITAITED, CALL LIGHT IN REACH, WILL CONTINUE MONITORING PT.
[2017-09-11] MEDS ORDERED: ENOXAPARIN SODIUM 30 MG/0.3 ML DISP.SYRIN SQ SCH (21:00)
[2017-09-11] MEDS: SIMVASTATIN 20 MG TABLET PO SCH (21:25)
--- NOTE | 2017-09-11 21:30 | NUR ---
BS 245: PT'S BLOOD SUGAR IS 245, 4 UNITS OF INSULIN GIVEN PER SLIDING SCALE. PT TOLERATING PO INTAKE. ON DIABETIC DIET
[2017-09-11] MEDS: IV NS 0.9% 1,000 ML IV PRN (21:51)
[2017-09-12 04:00] VITALS: BP 128/63
[2017-09-12] MEDS: MECLIZINE HCL 25 MG TABLET PO SCH ×2 (05:03→12:31)
[2017-09-12 06:00] VITALS: BP 128/79
[2017-09-12] MEDS: BLOOD SUGAR DIAGNOSTIC 1 EACH STRIP IN SCH ×3 (06:25→16:49)
[2017-09-12] MEDS: INSULIN REGULAR, HUMAN 100 UNIT/ML 3 ML VIAL SQ PRN ×2 (06:25→12:35)
--- NOTE | 2017-09-12 06:26 | NUR ---
BS 85: PT'S BLOOD SUGAR IS 85, NO INSULIN COVERAGE GIVEN PER SLIDING SCALE
--- NOTE | 2017-09-12 06:45 | NUR ---
RN CLOSING NOTES: PT IN BED, AWAKE, A/O X3 FORGETFUL AT TIMES, DENIES ANY PAIN OR DISCOMFORT THROUGHOUT THE NIGHT. PT NEEDS ASSISTANCE IN USING COMMODE. IV ACCESS REMAINS PATENT AND FLUSHING WELL, INFUSING WITH NS AT 100ML/HR. FOR POSSIBLE DC TODAY, EXIT CARE COMPLETED. VS REMAINS STABLE. NEEDS ATTENDED. SAFETY PRECAUTIONS FOR FALL REMAINS ENGAGED, CALL LIGHT IN REACH. WILL ENDORSE TO DAY RN FOR GAGE.
--- NOTE | 2017-09-12 07:33 | NUR ---
MS RN OPENING NOTES RECEIVED PATIENT IN STABLE CONDITON. IN NO APPARENT DISTRESS. BEDSIDE RAILS ARE UPX2. BED IS LOCKED AND LOWERED. CALL LIGHT IS WITHIN REACH. IV LINE IS INTACT AND PATENT. WILL CONTINUE TO MONITOR.
[2017-09-12 08:00] VITALS: BP 134/66
[2017-09-12] MEDS: PANTOPRAZOLE 40 MG TABLET.DR PO SCH (08:11)
[2017-09-12] MEDS: hydrALAZINE HCL 50 MG TABLET PO SCH ×3 (08:11→16:49)
[2017-09-12] MEDS: NITROGLYCERIN 30 GM TUBE TP SCH (08:12)
[2017-09-12] MEDS: INSULN 70/30 ASP+PRT/ASP MIX 100 UNIT/ML CARTRIDGE SQ SCH (08:18)
[2017-09-12] MEDS ORDERED: ASPIRIN 81 MG TAB.CHEW PO SCH (09:00)
[2017-09-12] MEDS ORDERED: CLOPIDOGREL BISULFATE 75 MG TABLET PO SCH (09:00)
[2017-09-12 16:00] VITALS: BP 154/69
[2017-09-12 16:49] VITALS: BP 154/69
--- NOTE | 2017-09-12 18:40 | NUR ---
DISCHARGED PATIENT IN STABLE CONDITION. IN NO APPARENT DISTRESS. ALL NEEDS WERE MET. IV LINE WAS DISCONTINUED. ID BAND WAS REMOVED. EXITCARE WAS PROVIDED TO THE PATIENT. PRESCRIPTIONS WERE PROVIDED TO THE PATIENT. PATIENT WAS ESCORTED OUT OF THE HOSPITAL VIA WHEELCHAIR BY VALENTINA ANTHONY. PATIENTS DAUGHTER WILL BE DRIVING THE PATIENT HOME.
== END 2017-09-12 18:39 | disposition home or self-care (01) | DRG 45 ==
LOC: ER 07:08 → TELE 12:46 → MED 13:44 → TELE 13:46 → MED 09-09 09:12
PROVIDERS: ADMIT Internal Medicine; ATTEND Internal Medicine
DX: I63.8 Other cerebral infarction (principal); E11.42 Type 2 diabetes mellitus with diabetic polyneuropathy; E11.65 Type 2 diabetes mellitus with hyperglycemia; E87.1 Hypo-osmolality and hyponatremia; I10 Essential (primary) hypertension; M19.90 Unspecified osteoarthritis, unspecified site; D63.8 Anemia in other chronic diseases classified elsewhere; H81.49 Vertigo of central origin, unspecified ear
CPT/HCPCS: 36415; 70450-TC; 70496-TC; 70498-TC; 70551-TC; 71045-TC; 80048-TC; 80061-TC; 80076-TC; 81000-TC; 82306; 82728-TC; 82962-TC; 83540-TC; 83605-TC; 84439-TC; 84443-TC; 84484-TC; 85025-TC; 85730-TC; 87040-TC; 87081-TC; 87086-TC; 92611-TC; 93307-TC; 93880-TC; 97110-TC; 97116-TC; 97530-TC; A4606; J1650; J1815; J2405; J7030; J8597; Q9967; Z7610

== ENCOUNTER 2018-04-09 20:06 | Inpatient (IN) | payer MEDICAID ==
[~2018-04-09] VITALS: Ht 152.4 cm; Wt 80.3 kg
[~2018-04-09 20:06] MED LIST changes: -AMLO10TA6 PO; -ASPI-1169 PO; -LABE100T15 PO; -LEVO500T75 PO
--- NOTE | 2018-04-09 20:30 | NUR ---
PT BIBDAUGHTER COMPLAINING OF HIGH BLOOD PRESSURE AND HIGH BLOOD SUGAR AT HOME. PT ALSO COMPLAINING OF HEADACHE. PT DENIES CHEST PAIN, SOB, CHANGE IN VISION. PT IS AAOX4. RESPIRATIONS EVEN AND UNLABORED. SKIN WARM AND INTACT. NO ACUTE DISTRESS NOTED AT THIS TIME. PT ABLE TO AMBULATE WITH ASSISTANCE. PT PLACED IN GOWN AND ON CONTINUOUS COMPUTATIONAL MATHEMATICIAN. WILL CONTINUE TO MONITOR
--- NOTE | 2018-04-09 20:35 | NUR ---
MD AT BEDSIDE FOR EVALUATION
[2018-04-09] MEDS ORDERED: hydrALAZINE HCL IV 20 MG VIAL ONE (20:45)
--- NOTE | 2018-04-09 20:51 | NUR ---
RADIOLOGY AT BEDSIDE FOR CXR
[2018-04-09] MEDS ORDERED: IV NS 0.9% 1,000 ML BAG IV ONE (21:00)
[2018-04-09] MEDS ORDERED: hydrALAZINE HCL IV 20 MG VIAL IV ONE (21:00)
[2018-04-09 21:12] LABS: BASOPHILS % (AUTO) 0.3 % (0.0-2.0); EOSINOPHILS % (AUTO) 0.4 % (0.0-6.0); HEMATOCRIT 37 % (33-45); LYMPHOCYTES % (AUTO) 23.7 % (20.0-44.0); MEAN CORPUSCULAR HGB CONC 33 g/dl (31.0-36.0); MEAN CORPUSCULAR VOLUME 86 fL (82-100); MONOCYTES # (AUTO) 0.6 /CMM (0.1-1.30); MONOCYTES % (AUTO) 7.1 % (2.0-12.0); NEUTROPHILS # (AUTO) 5.8 /CMM (1.8-8.9); NEUTROPHILS % (AUTO) 68.5 % (43.0-81.0); PLATELET COUNT (AUTO) 192 /CMM (150-450); RED BLOOD CELL COUNT(AUTO) 4.29 MIL/uL (4.0-5.2); WHITE BLOOD COUNT (AUTO) 8.5 K/uL (4.3-11.0)
[2018-04-09 21:21] LABS: CALCIUM, SERUM 8.9 mg/dL (8.5-10.1); CARBON DIOXIDE 32 mmol/L (21-32); CHLORIDE 98 mmol/L (98-107); CREATININE 0.9 mg/dL (0.6-1.3); GLUCOSE 228 mg/dL (74-106); POTASSIUM 3.8 mmol/L (3.5-5.1); SODIUM SERUM 136 mmol/L (136-145); UREA NITROGEN, BLOOD 22 mg/dL (7-18)
[2018-04-09] MEDS ORDERED: ACETAMINOPHEN ES 500 MG TABLET ONE (21:49)
[2018-04-09] MEDS ORDERED: ACETAMINOPHEN ES 500 MG TABLET PO ONE (22:00)
[2018-04-09] MEDS ORDERED: ONDANSETRON HCL/PF 4 MG/2 ML VIAL IVP PRN (22:30)
[2018-04-09] MEDS ORDERED: HYDROCODONE/APAP 5/325MG 1 EACH TABLET PO PRN (22:30)
[2018-04-09] MEDS ORDERED: DEXTROSE 50%-WATER 50 ML DISP.SYRIN IV PRN (22:30)
[2018-04-09] MEDS ORDERED: Z GUARD REMEDY 2 OZ OINT TP PRN (22:30)
[2018-04-09] MEDS ORDERED: ACETAMINOPHEN 325 MG TABLET PO PRN (22:30)
[2018-04-09] MEDS ORDERED: MAG HYDROX/AL HYDROX/SIMETH 30 ML UDC PO PRN (22:30)
[2018-04-09] MEDS ORDERED: MAGNESIUM HYDROXIDE 30 ML UDC PO PRN (22:30)
[2018-04-09] MEDS ORDERED: ZOLPIDEM TARTRATE 5 MG TABLET PO PRN (22:30)
--- NOTE | 2018-04-09 22:37 | NUR ---
PT TRANSFERRED PER ACLS PROTOCOL
[2018-04-09 22:40] VITALS: BP 154/78
--- NOTE | 2018-04-09 22:40 | NUR ---
COMMUNITY ORGANIZATION DIRECTOR NOTE RECEIVED IN STABLE CONDITION A&0 X4, WITH NO SIGNS OF SOB OR DISTRESS. PT. IS ABLE TO AMBULATE WITH CANE AND STANDBY ASSISTANCE. BODY CHECK DONE WITH PHOTOS NOTED IN PATIENTS CHART. BROWNFIELD PROGRAM COORDINATOR ON CURRENTLY SR 80 WITH PVCS AND TRIGEMINY. ALL BELONGINGS ACCOUNTED FOR UPON ARRIVAL. WILL CONT TO MONITOR PT'S BP Q4H. ALL NEEDS CURRENTLY MET. BED LOCKED, AND LOWEST POSITION WITH CALL LIGHT WITHIN REACH. WILL CONT TO MONITOR.
[2018-04-09] MEDS ORDERED: ENOXAPARIN SODIUM 40 MG/0.4 ML DISP.SYRIN SQ SCH (23:00)
[2018-04-10] VITALS (7 sets, daily range): BP systolic 143–171; BP diastolic 62–78
--- NOTE | 2018-04-10 00:57 | NUR ---
FACING SLITTER NOTE PT SEEN AND EXAMINED BY DR. DELVALLE WITH NEW ORDERS FOR INSULIN NOTED AND CARRIED OUT.
[2018-04-10] MEDS: *INSULIN REGULAR(HUMULIN R)HUM 100 UNIT/ML VIAL SQ PRN ×2 (01:01→21:35)
--- NOTE | 2018-04-10 06:37 | NUR ---
BIOLOGY ADJUNCT INSTRUCTOR NOTE PT REMAINS IN STABLE CONDITION A&0 X4, WITH NO SIGNS OF SOB OR DISTRESS. PT. IS ABLE TO AMBULATE WITH CANE AND STAND BY ASSISTANCE. EKG DONE WITH RESULTS OF SR 74. ALL NEEDS CURRENTLY MET. BED LOCKED, AND LOWEST POSITION WITH CALL LIGHT WITHIN REACH. WILL CONT TO MONITOR AND ENDORSE TO NEXT SHIFT.
[2018-04-10 07:24] LABS: BASOPHILS % (AUTO) 0.2 % (0.0-2.0); EOSINOPHILS % (AUTO) 0.3 % (0.0-6.0); HEMATOCRIT 34 % (33-45); HEMOGLOBIN 11.2 g/dL (11.5-14.8); LYMPHOCYTES # (AUTO) 2.5 /CMM (0.8-4.8); LYMPHOCYTES % (AUTO) 32.9 % (20.0-44.0); MEAN CORPUSCULAR HGB CONC 33 g/dl (31.0-36.0); MEAN CORPUSCULAR VOLUME 85 fL (82-100); MONOCYTES # (AUTO) 0.8 /CMM (0.1-1.30); MONOCYTES % (AUTO) 10.4 % (2.0-12.0); NEUTROPHILS # (AUTO) 4.3 /CMM (1.8-8.9); NEUTROPHILS % (AUTO) 56.2 % (43.0-81.0); PLATELET COUNT (AUTO) 184 /CMM (150-450); WHITE BLOOD COUNT (AUTO) 7.6 K/uL (4.3-11.0)
[2018-04-10 07:31] LABS: CALCIUM, SERUM 8.7 mg/dL (8.5-10.1); CARBON DIOXIDE 28 mmol/L (21-32); CHLORIDE 103 mmol/L (98-107); CREATININE 0.9 mg/dL (0.6-1.3); GLUCOSE 139 mg/dL (74-106); MAGNESIUM 1.4 mg/dL (1.8-2.4); POTASSIUM 3.2 mmol/L (3.5-5.1); SODIUM SERUM 141 mmol/L (136-145); UREA NITROGEN, BLOOD 17 mg/dL (7-18)
[2018-04-10] MEDS: BLOOD SUGAR DIAGNOSTIC 1 EACH STRIP VI SCH ×4 (07:32→21:31)
--- NOTE | 2018-04-10 07:45 | NUR ---
component prep operator Opening Note Patient is currently asleep, resting in bed but easily arousable to name. Alert and oriented x 4. On breeding technician, sinus rhythm at 74 bpm. Patient able to make needs known, no complaints, signs or symptoms of distress, shortness of breath or pain at this time. Respirations even and unlabored, saturating on room air. Left AC 20 gauge, intact and patent and saline locked. Safety and Fall precautions in place: bed in lowest and locked position, side rails up x2, call light and personal possessions within reach. Patient updated on safety measures and current plan of care, verbalized understanding. Will continue to monitor and intervene as needed.
[2018-04-10 07:46] LABS: CHOLESTEROL 146 mg/dL (<200); HDL CHOLESTEROL 55 mg/dL (40-60); LDL 80 mg/dL (0-99); TRIGLYCERIDES 74 mg/dL (30-150)
[2018-04-10] MEDS: hydrALAZINE HCL 25 MG TABLET PO PRN ×2 (08:41→17:00)
[2018-04-10] MEDS: PANTOPRAZOLE 40 MG TABLET.DR PO SCH (08:41)
[2018-04-10] MEDS ORDERED: INSULIN ASPART/LISPRO 100 UNIT/ML CARTRIDGE SQ SCH ×2 (09:00→22:00)
[2018-04-10] MEDS: Magnesium 1GM/D5W 100ML PREMIX 100 ML IV SCH ×4 (11:48→16:58)
[2018-04-10] MEDS: POTASSIUM CHLORIDE 20 MEQ TAB.PRT.SR PO SCH ×2 (11:48→12:25)
--- NOTE | 2018-04-10 17:21 | NUR ---
MS RN Note Patient left unit in stable condition with transport for CT - head.
[2018-04-10] MEDS: INSULIN ASPART/LISPRO 100 UNIT/ML CARTRIDGE SQ SCH (17:33)
[2018-04-10] MEDS: INSULIN REGULAR, HUMAN 100 UNIT/ML 3 ML VIAL SQ PRN (17:37)
--- NOTE | 2018-04-10 17:40 | NUR ---
Patient returned to unit in stable condition from CT. Will continue to monitor.
--- NOTE | 2018-04-10 18:45 | NUR ---
MS RN Closing Note Patient is currently asleep, resting in bed but easily arousable to name. Alert and oriented x 4. Patient able to make needs known, no complaints, signs or symptoms of distress, shortness of breath or pain at this time. Respirations even and unlabored, saturating on room air. Left AC 20 gauge, intact and patent and saline locked. All due medications given. PRN Hydralazine given per JUN as ordered for 0800 BP of 163/72 and 1600 BP of 170/76; rechecks noted in vital signs form. Safety and Fall precautions in place: bed in lowest and locked position, side rails up x2, call light and personal possessions within reach. Patient updated on safety measures and current plan of care, verbalized understanding. Will endorse to shift superintendent RN for continuity of care.
--- NOTE | 2018-04-10 19:40 | NUR ---
MS RN NOTES RECEIVED RESTING COMFORTABLY ON BED,A/O X4,NO SOB,SBP ON HIGH SIDE 171/73,DENIES PAIN,HYDRALAZINE WAS JUST GIVEN AT 1700.WILL RE CHECK IN AN HOUR.SALINE LOC LAC INTACT AND PATENT.PER PATIENT,SHE AMBULATES WITH CANE.CALL LIGHT IN REACH.WILL CONTINUE TO MONITOR BLOOD PRESSURE.
--- NOTE | 2018-04-10 19:45 | NUR ---
MS RN NOTES RECEIVED ON BED SLEEPING,WITH HOB ELEVATED,BREATHING NON LABORED.WITH IVF 1/2 NS INFUSING AT 125ML/HR RATE ON LFA VIA IV PUMP,SITE PATENT.WITH SITTER FOR SAFETY,ON 5249 HOLD.WILL CONTINUE TO MONITOR STATUS.
--- NOTE | 2018-04-10 21:00 | NUR ---
MS RN NOTES BP RE CHECK AFTER AN HOUR WAS 153/65,DENIES PAIN.
[2018-04-10] MEDS: ENOXAPARIN SODIUM 40 MG/0.4 ML DISP.SYRIN SQ SCH (21:02)
--- NOTE | 2018-04-10 21:30 | NUR ---
MS RN NOTES ACCU-CHECK BLOOD SUGAR CHECK 168,COVERED HUMULIN R 3 UNITS PER SLIDING SCALE,REFUSED 2O UNITS OF LANTUS Q HS.
[2018-04-10] MEDS: INSULIN GLARGINE, 100 UNIT/ML CARTRIDGE SQ SCH (21:41)
[2018-04-10] MEDS: ATORVASTATIN 10 MG TABLET PO SCH (21:52)
--- NOTE | 2018-04-11 05:30 | NUR ---
MS RN NOTES ACCU-CHECK BLOOD SUGAR CHECK 163,OFFERED INSULIN COVERAGE BUT REFUSED.SHE WANTS IT WHEN BREAKFAST IS READY
[2018-04-11] MEDS: BLOOD SUGAR DIAGNOSTIC 1 EACH STRIP VI SCH ×4 (05:35→21:20)
--- NOTE | 2018-04-11 06:13 | NUR ---
MS RN NOTES ON BED SLEEPING,NO PAIN,SALINE LOCK REMAINS PATENT.USED BEDSIDE COMMODE WITH ASSIST.IN NO ACUTE DISTRESS.WILL ENDORSE TO DAY NURSE FOR GAGE.
[2018-04-11 06:26] LABS: CALCIUM, SERUM 8.9 mg/dL (8.5-10.1); CARBON DIOXIDE 29 mmol/L (21-32); CHLORIDE 106 mmol/L (98-107); GLUCOSE 174 mg/dL (74-106); SODIUM SERUM 143 mmol/L (136-145); UREA NITROGEN, BLOOD 15 mg/dL (7-18)
--- NOTE | 2018-04-11 07:36 | NUR ---
MS RN OPENING NOTES RECEIVED PT FROM NIGHTSHIFT RN IN STABLE CONDITION. NO SOB OR ACUTE SIGNS OF DISTRESS NOTED. BREATHING IS EVEN AND UNLABORED. PT ON RA AND SATING WELL. SHE DENIES ANY HEADACHE OR FURTHER PAIN AT THIS TIME. IV TO LEFT AC NOTED TO BE PATENT AND INTACT. NO REDNESS OR SIGNS OF INFILTRATION NOTED AT THIS TIME. PT'S BP CURRENTLY 159/84. WILL ADMINISTER PRN BP MEDICATION TO FURTHER LOWER HER BP. BED IN LOW LOCKED POSITION, SIDE RAILS UP X2, CALL LIGHT WITHIN REACH. WILL CONTINUE TO MONITOR
[2018-04-11 08:00] VITALS: BP 159/84
[2018-04-11] MEDS: INSULIN ASPART/LISPRO 100 UNIT/ML CARTRIDGE SQ SCH ×2 (08:13→17:30)
[2018-04-11] MEDS: INSULIN REGULAR, HUMAN 100 UNIT/ML 3 ML VIAL SQ PRN ×3 (08:14→17:29)
[2018-04-11] MEDS: PANTOPRAZOLE 40 MG TABLET.DR PO SCH (08:17)
[2018-04-11] MEDS: ASPIRIN 81 MG TAB.CHEW PO SCH (08:18)
[2018-04-11] MEDS: hydrALAZINE HCL 25 MG TABLET PO PRN ×2 (08:28→17:28)
[2018-04-11] MEDS: LISINOPRIL (10MG) 10 MG TABLET PO SCH (09:57)
[2018-04-11 16:00] VITALS: BP 159/84
--- NOTE | 2018-04-11 18:41 | NUR ---
MS RN CLOSING NOTES PT REMAINS STABLE. ALL NEEDS MET DURING SHIFT AND ORDERS CARRIED OUT ACCORDINGLY. ALL DUE MEDS GIVEN. PRN CARE RENDERED. BP CONTINUES TO GRADUALLY DROP FROM AM WITH THE ADMINISTRATION OF SCHEDULED AND PRN BP MEDICATIONS. IV REMAINS PATENT AND INTACT. SAFETY MEASURES REMAIN IN PLACE. WILL ENDORSE TO NIGHTSHIFT RN FOR GAGE
--- NOTE | 2018-04-11 19:30 | NUR ---
MS/RN RECEIVE PATIENT AWAKE, ALERT, ORIENTED, COMFORTABLE, NO C/O PAIN, NO DISTRESS NOTED, CALL LIGHT IN REACH. WILL MONITOR.
[2018-04-11 20:00] VITALS: BP 128/80
--- NOTE | 2018-04-11 21:21 | NUR ---
MS/RN ACCU CHECK DONE, BLOO SUGAR 46, RECHECKED, = 44, PATIENT STATES SHE IS SWEATING, D50% 50 MLS WAS GIVEN ORDERED. WILL RECHECK BLOOD SUGAR.
[2018-04-11] MEDS: INSULIN GLARGINE, 100 UNIT/ML CARTRIDGE SQ SCH (22:00)
[2018-04-11] MEDS: ATORVASTATIN 10 MG TABLET PO SCH (23:25)
[2018-04-11] MEDS: ENOXAPARIN SODIUM 40 MG/0.4 ML DISP.SYRIN SQ SCH (23:26)
--- NOTE | 2018-04-11 23:33 | NUR ---
MS/RN LANTUS ORDERED WAS NOT GIVEN DUE TO EPISODE OF BLOOD SUGAR 48 AND 44 AT 2100.
--- NOTE | 2018-04-12 01:02 | NUR ---
MS/RN PATIENT IS SLEEPING AT THIS TIME, APPEAR COMFORTABLE, BREATHING EVEN AND UNLABORED, CALL LIGHT IN REACH. WILL CONTINUE TO MONITOR.
[2018-04-12] MEDS: BLOOD SUGAR DIAGNOSTIC 1 EACH STRIP VI SCH ×2 (06:59→12:09)
[2018-04-12] MEDS: INSULIN REGULAR, HUMAN 100 UNIT/ML 3 ML VIAL SQ PRN ×4 (07:04→12:10)
--- NOTE | 2018-04-12 07:27 | NUR ---
MS/RN PATIENT IS AWAKE, ALERT, NO CHANGE IN CONDITION, BLOOD SUGAR 144, REFUSED INSULIN COVERAGE AT THIS TIME, PER PATIENT SHE WANTS TO GET IT RIGHT BEFORE BREAKFAST. ALL NEEDS ATTENDED AT THIS TIME, ENDORSED TO NEXT RN FOR CONTINUITY OF CARE.
--- NOTE | 2018-04-12 07:30 | NUR ---
MS RN OPENING NOTES RECEIVED PT FROM NIGHTSHIFT RN IN STABLE CONDITION. NO SOB OR ACUTE SIGNS OF DISTRESS NOTED. BREATHING IS EVEN AND UNLABORED. PT ON RA AND SATING WELL. SHE DENIES ANY HEADACHE OR FURTHER PAIN AT THIS TIME. IV TO LEFT AC NOTED TO BE PATENT AND INTACT. NO REDNESS OR SIGNS OF INFILTRATION NOTED AT THIS TIME. PT'S BP CURRENTLY 155/70. BED IN LOW LOCKED POSITION, SIDE RAILS UP X2, CALL LIGHT WITHIN REACH. WILL CONTINUE TO MONITOR
[2018-04-12 08:00] VITALS: BP 155/70
[2018-04-12 08:41] VITALS: BP 155/70
[2018-04-12] MEDS: ASPIRIN 81 MG TAB.CHEW PO SCH (08:41)
[2018-04-12] MEDS: PANTOPRAZOLE 40 MG TABLET.DR PO SCH (08:41)
[2018-04-12] MEDS: LISINOPRIL (10MG) 10 MG TABLET PO SCH (08:41)
[2018-04-12] MEDS: INSULIN ASPART/LISPRO 100 UNIT/ML CARTRIDGE SQ SCH (09:01)
--- NOTE | 2018-04-12 13:29 | NUR ---
MS CENTRIFUGAL MACHINE TENDER NOTES PT WAS DISCHARGED FROM FACILITY IN STABLE CONDITION. ALL NEEDS WERE MET DURING SHIFT AND ORDERS CARRIED OUT ACCORDINGLY ALL DUE MEDS GIVEN. VSS PRIOR TO D/C. D/C INSTRUCTIONS DISCUSSED WITH PT AND DAUGHTER AT BEDSIDE. EDUCATION ON NEW PRESCRIPTIONS PROVIDED WELL. N=BOTH VERBALIZED FULL UNDERSTANDING. IV WAS SUCCESSFULLY REMOVED WITH NO COMPLICATIONS. PT DENIES ANY HEADACHE, PAIN, OR BLURRED VISION PRIOR TO D/C. ALL BELONGINGS ACCOUNTED FOR AT TIME OF DISCHARGE. D/C PAPERWORK SIGNED BY PT'S DAUGHTER PER PT'S REQUEST. COPIES MADE AND PLACED IN PT'S CHART. D/C PHOTOS TAKEN AND PLACED IN CHART. SHE WAS SAFELY ESCORTED TO BE MAIN LOBBY BY THE ASSISTANT PRINCIPAL VIA WHEELCHAIRE AND LEFT VIA PRIVATE VEHICLE
[2018-04-13] MEDS ORDERED: LISINOPRIL (10MG) 10 MG TABLET PO SCH (09:00)
== END 2018-04-12 13:20 | disposition home or self-care (01) | DRG 199 ==
LOC: ER 20:08 → TELE 22:24 → MED 04-10 08:22
PROVIDERS: ADMIT Internal Medicine; ATTEND Nurse Practitioner Acute Care
DX: I16.0 Hypertensive urgency (principal); N17.0 Acute kidney failure with tubular necrosis; I10 Essential (primary) hypertension; Z90.49 Acquired absence of other specified parts of digestive tract; E11.65 Type 2 diabetes mellitus with hyperglycemia; Z79.4 Long term (current) use of insulin; E11.42 Type 2 diabetes mellitus with diabetic polyneuropathy; M19.90 Unspecified osteoarthritis, unspecified site; E11.36 Type 2 diabetes mellitus with diabetic cataract; Z98.890 Other specified postprocedural states; I70.0 Atherosclerosis of aorta; Z86.73 Personal history of transient ischemic attack (TIA), and cerebral infarction without residual deficits; E87.6 Hypokalemia; E66.9 Obesity, unspecified; Z68.34 Body mass index [BMI] 34.0-34.9, adult
CPT/HCPCS: 36415; 70450-TC; 71045-TC; 80048-TC; 80061-TC; 82962-TC; 83735-TC; 84100-TC; 84484-TC; 85025-TC; 85730-TC; 87081-TC; 93307-TC; A4606; G0378; J0360; J1650; J1815; J3475; J7030; Z7610

== ENCOUNTER 2018-12-31 06:16 | Emergency (ER) | payer MEDICAID ==
[~2018-12-31] VITALS: Ht 160 cm; Wt 70.8 kg
[2018-12-31] MEDS ORDERED: ATENOLOL 50 MG TABLET ONE (06:53)
[2018-12-31] MEDS ORDERED: ATENOLOL 50 MG TABLET PO ONE (07:00)
[2018-12-31 07:02] VITALS: BP 185/90
--- NOTE | 2018-12-31 07:06 | NUR ---
PT WAS MEDICATED ORDERED , PER MD, PT MAY LEAVE AFTER TAKING HIS MEDICATION.
--- NOTE | 2018-12-31 07:07 | NUR ---
Patient discharged to home in stable condition. Written and verbal after care instructions given. Patient verbalizes understanding of instruction.
== END 2018-12-31 07:10 | disposition home or self-care (01) ==
LOC: ER 06:20
DX: I10 Essential (primary) hypertension (principal); E11.9 Type 2 diabetes mellitus without complications; Z90.49 Acquired absence of other specified parts of digestive tract; Z79.4 Long term (current) use of insulin

== ENCOUNTER 2022-08-05 15:16 | Inpatient (IN) | payer MEDICAID, OTHER ==
[~2022-08-05] VITALS: Ht 165.1 cm; Wt 77.1 kg
--- NOTE | 2022-08-05 15:40 | NUR ---
[id number] FOR FROM HOME GENARALIZED WEAKNESS SINCE YESTERDAY MORNING. NO NAUSEA, VOMITING OR DIARRHEA, BG 230 ON SCENE PER EMS
--- NOTE | 2022-08-05 15:50 | NUR ---
BLOOD SAMPLE OBTAINED SENT TO LAB
[2022-08-05 16:15] LABS: BASOPHILS % (AUTO) 0.2 % (0.0-2.0); HEMATOCRIT 34 % (33-45); HEMOGLOBIN 10.9 g/dL (11.5-14.8); LYMPHOCYTES # (AUTO) 1.6 K/uL (0.8-4.8); LYMPHOCYTES % (AUTO) 10.2 % (20.0-44.0); MEAN CORPUSCULAR HGB CONC 32 g/dl (31.0-36.0); MEAN CORPUSCULAR VOLUME 83 fL (82-100); MONOCYTES # (AUTO) 1.2 K/uL (0.1-1.30); MONOCYTES % (AUTO) 7.7 % (2.0-12.0); NEUTROPHILS # (AUTO) 12.7 K/uL (1.8-8.9); NEUTROPHILS % (AUTO) 81.9 % (43.0-81.0); PLATELET COUNT (AUTO) 164 K/uL (150-450); WHITE BLOOD COUNT (AUTO) 15.5 K/uL (4.3-11.0)
--- NOTE | 2022-08-05 16:20 | NUR ---
COVID SWAB TAKEN
[2022-08-05 16:36] LABS: CALCIUM, SERUM 9.2 mg/dL (8.5-10.1); CARBON DIOXIDE 28 mmol/L (21-32); CHLORIDE 103 mmol/L (98-107); CREATININE 1.1 mg/dL (0.6-1.3); GLUCOSE 130 mg/dL (74-106); POTASSIUM 3.3 mmol/L (3.5-5.1); SODIUM SERUM 138 mmol/L (136-145); UREA NITROGEN, BLOOD 26 mg/dL (7-18)
--- NOTE | 2022-08-05 17:22 | NUR ---
URINE SAMPLE OBTAINED
--- NOTE | 2022-08-05 17:41 | NUR ---
MIDLINE PLACED AT LEFT UPPER ARM 20 G
[2022-08-05 18:09] LABS: BILIRUBIN,URINE NEGATIVE (NEGATIVE); COLOR,URINE YELLOW (YELLOW); LEUKOCYTE ESTERASE ,URINE NEGATIVE (NEGATIVE); NITRITE, URINE NEGATIVE (NEGATIVE); PH,URINE 6.5 (5.0-8.0); PROTEIN,URINE 2+ mg/dl (NEGATIVE); UGLUCOSE 1+ mg/dL (NEGATIVE); UROBILINOGEN,URINE 0.2 EU/dL (0.2)
[2022-08-05 18:37] LABS: BACTERIA,URINE None seen /HPF (None Seen); HYALINE CASTS, URINE Few /LPF (None Seen); MUCUS,URINE Few /LPF (None Seen); RBC,URINE 0-2 /HPF (0-2); SQUAMOUS EPITHELIAL CELL,UR 0-2 /HPF (None Seen); WBC,URINE 0-2 /HPF (0-3)
--- NOTE | 2022-08-05 18:55 | NUR ---
[facility] ASSISTANT BUSINESS MANAGER [phone]
[2022-08-05] MEDS ORDERED: IV NS 0.9% 1,000 ML IV ONE (20:00)
--- NOTE | 2022-08-05 20:11 | NUR ---
ROOM 304-2
--- NOTE | 2022-08-05 20:43 | NUR ---
REPORT GIVEN TO SONALI Lovell RN FOR GAGE
[2022-08-05 21:00] VITALS: BP 97/58
--- NOTE | 2022-08-05 21:01 | NUR ---
PT TRANSFERRING TO 304- VIA HOSPITAL PROTOCOL. VSS
[2022-08-05] MEDS ORDERED: TEMAZEPAM 15 MG CAPSULE PO PRN (21:30)
[2022-08-05] MEDS ORDERED: HYDROCODONE/APAP 5/325MG TABLET PO PRN (21:30)
[2022-08-05] MEDS ORDERED: SIMVASTATIN 40 MG TABLET PO SCH (22:00)
[2022-08-05] MEDS: ENOXAPARIN SODIUM 40 MG/0.4 ML DISP.SYRIN SQ SCH (22:27)
[2022-08-05] MEDS: BLOOD SUGAR DIAGNOSTIC 1 EACH STRIP IN SCH (22:28)
[2022-08-06] VITALS (7 sets, daily range): BP systolic 158–190; BP diastolic 41–79
--- NOTE | 2022-08-06 00:52 | NUR ---
Admission Notes Patient arrived via gurney at approximately @2105. AOx4, able to make needs known. On RA and tolerating well. No SOB noted. No s/sx of respiratory distress noted. Tele monitor detects SR. IV access in SAIGE midline #20G. IV is intact, patent, and flushing well. Safety precautions in place: bed in lowest, locked position, siderails upX2, and brakes on. Table and call light within reach.
--- NOTE | 2022-08-06 00:54 | NUR ---
CONTACT INFO Babar Felipe, daughter, provided contact info .
[2022-08-06] MEDS: BLOOD SUGAR DIAGNOSTIC 1 EACH STRIP IN SCH ×4 (06:32→22:03)
--- NOTE | 2022-08-06 06:51 | NUR ---
RN Closing Notes Pt in bed, asleep, awakens to verbal stimuli. AOx4, able to make needs known. On RA and tolerating well. No SOB noted. No s/sx of respiratory distress noted. Tele monitor detects SR. IV access in SAIGE midline #20G. IV is intact, patent, and flushing well. All orders carried out. All needs met. Pt kept clean and dry. Safety precautions in place: bed in lowest, locked position, siderails upX2, and brakes on. Table and call light within reach. Will endorse to oncoming shift for GAGE.
[2022-08-06 07:04] LABS: BASOPHILS % (AUTO) 0.2 % (0.0-2.0); EOSINOPHILS % (AUTO) 0.4 % (0.0-6.0); HEMATOCRIT 32 % (33-45); HEMOGLOBIN 10.5 g/dL (11.5-14.8); LYMPHOCYTES # (AUTO) 3.1 K/uL (0.8-4.8); LYMPHOCYTES % (AUTO) 23.7 % (20.0-44.0); MEAN CORPUSCULAR HGB CONC 33 g/dl (31.0-36.0); MEAN CORPUSCULAR VOLUME 83 fL (82-100); MONOCYTES % (AUTO) 7.8 % (2.0-12.0); NEUTROPHILS # (AUTO) 8.9 K/uL (1.8-8.9); NEUTROPHILS % (AUTO) 67.9 % (43.0-81.0); PLATELET COUNT (AUTO) 148 K/uL (150-450); RED BLOOD CELL COUNT(AUTO) 3.86 MIL/uL (4.0-5.2); WHITE BLOOD COUNT (AUTO) 13.1 K/uL (4.3-11.0)
[2022-08-06 07:15] LABS: CALCIUM, SERUM 8.8 mg/dL (8.5-10.1); CARBON DIOXIDE 27 mmol/L (21-32); CHLORIDE 105 mmol/L (98-107); CREATININE 0.8 mg/dL (0.6-1.3); GLUCOSE 197 mg/dL (74-106); POTASSIUM 3.1 mmol/L (3.5-5.1); SODIUM SERUM 139 mmol/L (136-145); UREA NITROGEN, BLOOD 18 mg/dL (7-18)
--- NOTE | 2022-08-06 07:20 | NUR ---
PATIENT RECEIVED AWAKE, A/Ox3-4. STABLE ON ROOM AIR. NO S/S OF SOB. O2 98%. PATIENT ON EXTERNAL MONITOR WITH THE CURRENT READING OF SR, 71 . PATIENT INCONTINENT: USING PUREWICK. IV ACCESS GAETANO G#20 MIDLINE, INTACT PATIENT AND FLUSHING WELL. FALL AND SAFETY PRECAUTION IN PLACE: BED AT THE LOWEST POSITION, LOCKED, SRx2,CALL LIGHT WITH REACH.
[2022-08-06 09:00] LABS: CHOLESTEROL 146 mg/dL (<200); HDL CHOLESTEROL 72 mg/dL (40-60); LDL 61 mg/dL (0-99); TRIGLYCERIDES 67 mg/dL (30-150)
[2022-08-06] MEDS: PANTOPRAZOLE 40 MG TABLET.DR PO SCH (09:01)
[2022-08-06] MEDS: ASPIRIN 81 MG TAB.CHEW PO SCH (09:01)
[2022-08-06] MEDS: POTASSIUM CHLORIDE 20 MEQ TAB.PRT.SR PO SCH ×2 (11:04→12:56)
--- NOTE | 2022-08-06 11:30 | NUR ---
SS Consult: SS CONSULT requested for code stroke. The pt. is a 82-year-old Black male who was admitted to [facility] due to Acute weakness, possible CVA. SW met with pt. bedside. The pt. was alert & oriented x 4 and makes good eye contact. The pt. appears well-groomed. The pt. is hard of hearing. Pt. denies SI/HI and denies hallucinations. The pt. has euthymic mood & affect. Pt. stated that he lives at home [[id number] [place] [facility] [address]] with HER DAUGHTER, Babar Felipe tel: [phone] and would like to return there once ready for DC. Pt. states his daughter brought him to the hospital after she fell and was shaking and feeling weak. SW conducted post stroke depression scale and pt. scored a 3, and no psych consult is needed. SW also provided empowerment after stroke educational material and pt. accepted it. Pt. denies drug or alcohol use. Pt. denies any Hx. of mental illness or medication. Pt. stated that his support system includes his and family. DC Plan: Pt. stated she would like to return to home [address] [place] [address]]with her family. SW provided stroke empowerment resources. Pt. accepted them. Pt. scored a 3 on the post stroke depression scale no psych consult needed.
[2022-08-06] MEDS ORDERED: CT SWABBABLE VALVE TRANS SET 1 EA INFUS.SET MC ONE (11:57)
[2022-08-06] MEDS ORDERED: IOHEXOL-350 100 ML VIAL IV ONE (11:57)
[2022-08-06] MEDS ORDERED: IV NS 0.9% 250 ML IV ONE (11:57)
--- NOTE | 2022-08-06 15:18 | NUR ---
HAMMERER NOTE- CT RESULTS RESULT FOR CT ARE READY. NOTIFY DR. CAMACHO AND DR. ANDERSON.
[2022-08-06] MEDS ORDERED: DEXTROSE 50%-WATER 50 ML DISP.SYRIN IV PRN (18:30)
--- NOTE | 2022-08-06 18:37 | NUR ---
FOUNDRY OPERATOR TELE CLOSING NOTE PATIENT IN BED RESTING, VISIBLE CHEST EXTENSION, RESPONSIVE TO VERBAL STIMULI, A/Ox3-4. STABLE ON ROOM AIR. NO S/S OF SOB, OR CARDIAC DISTRESS. NO COMPLAINTS OF PAIN AT THIS TIME. O2 97%. PATIENT ON EXTERNAL MONITOR WITH THE CURRENT READING OF SR, 70s . PATIENT INCONTINENT: USING PUREWICK. MEDICATION ADMINISTERED ORDERED. IV ACCESS GAETANO G#20 MIDLINE, INTACT PATIENT AND FLUSHING WELL. FALL AND SAFETY PRECAUTION IN PLACE: BED AT THE LOWEST POSITION, LOCKED, SRx2,CALL LIGHT WITH REACH.
--- NOTE | 2022-08-06 19:30 | NUR ---
COMPENSATOR OPENING NOTE RECEIVED PT AWAKE IN BED, FAMILY AT BEDSIDE. A/Ox3-4, ABLE TO MAKE NEEDS KNOWN. ON RA WITH NO S/S OF SOB OR DISTRESS. DENIES PAIN AT THIS TIME. ON EXTERNAL MONITOR WITH THE CURRENT READING OF SR 82. PUREWICK INTACT WITH CLEAR YELLOW URINE OUTPUT NOTED. IV ACCESS GAETANO G#20 MIDLINE SL, INTACT, PATIENT, FLUSHING WELL. FALL AND SAFETY PRECAUTION IN PLACE: BED LOCKED AND AT LOWEST POSITION, SIDE RAILS UP X3, CALL LIGHT AND TRAY TABLE WITHIN REACH. WILL CONTINUE TO MONITOR AND ASSIST.
--- NOTE | 2022-08-06 19:58 | NUR ---
RN NOTE PT BP 190/79 AT THIS TIME. EXISTING ORDERS FOR PERMISSIVE HTN BUT NO EXACT PARAMETERS. RECYCLABLE PRODUCTS SORTER MENG SEGOVIA INFORMED AND STATED MAX SBP OF 220.
[2022-08-06] MEDS: ENOXAPARIN SODIUM 40 MG/0.4 ML DISP.SYRIN SQ SCH (22:05)
[2022-08-06] MEDS: *INSULIN REGULAR(HUMULIN R)HUM 100 UNIT/ML VIAL SQ PRN (22:06)
[2022-08-06] MEDS: SIMVASTATIN 20 MG TABLET PO SCH (22:07)
[2022-08-07] VITALS: BP 152/67
[2022-08-07 04:00] VITALS: BP 164/71
[2022-08-07] MEDS: BLOOD SUGAR DIAGNOSTIC 1 EACH STRIP IN SCH ×4 (06:58→22:16)
[2022-08-07] MEDS: INSULIN REGULAR, HUMAN 100 UNIT/ML 3 ML VIAL SQ PRN ×3 (06:59→18:02)
--- NOTE | 2022-08-07 07:00 | NUR ---
SENIOR GRADUATE ADVISOR CLOSING NOTE PT SLEEPING IN BED, EASILY AROUSABLE. A/Ox3-4, ABLE TO MAKE NEEDS KNOWN. STABLE ON RA WITH NO S/S OF SOB OR DISTRESS. DENIES PAIN AT THIS TIME. ON EXTERNAL MONITOR WITH THE CURRENT READING OF SR 82. PUREWICK INTACT WITH CLEAR YELLOW URINE, TOTAL OF 600 ML OUTPUT DURING SHIFT. IV ACCESS GAETANO G#20 MIDLINE SL, INTACT, PATIENT, FLUSHING WELL. NIHSS STROKE SCALE AND NEURO CHECKS PERFORMED. ALL CARE PROVIDED AND MEDS TOLERATED WELL. FALL AND SAFETY PRECAUTION MAINTAINED: BED LOCKED AND AT LOWEST POSITION, SIDE RAILS UP X3, CALL LIGHT AND TRAY TABLE WITHIN REACH. WILL ENDORSE GAGE TO DAY SHIFT NURSE.
--- NOTE | 2022-08-07 07:27 | NUR ---
EMPLOYEE RELATIONS ADVISOR OPENING NOTE RECEIVED PT ASLEEP IN BED, EASILY AROUSED. PT IS A/O X4, ABLE TO MAKE NEEDS KNOWN. ON ROOM AIR, TOLERATING WELL. NO SOB NOTED. NOT IN ANY SIGN OF RESPIRATORY DISTRESS. ON TELE SENIOR INDUSTRIAL ENGINEER WITH CURRENT READING SINUS RHYTHM, HR 82. NO C/O CARDIAC DISTRESS VOICED OUT AT THIS TIME. IV ACCESS ON GAETANO G#18 MIDLINE INTACT AND PATENT. SAFETY MEASURES IN PLACE: BED IN LOWEST AND LOCKED POSITION, SIDE RAILS UP X2, BED ALARM ON, AND CALL LIGHT WITHIN REACH. WILL CONTINUE PT WITH PLAN OF CARE.
[2022-08-07 07:39] LABS: CARBON DIOXIDE 28 mmol/L (21-32); CHLORIDE 105 mmol/L (98-107); CREATININE 1.2 mg/dL (0.6-1.3); GLUCOSE 164 mg/dL (74-106); POTASSIUM 3.8 mmol/L (3.5-5.1); SODIUM SERUM 141 mmol/L (136-145); UREA NITROGEN, BLOOD 17 mg/dL (7-18)
[2022-08-07] MEDS: PANTOPRAZOLE 40 MG TABLET.DR PO SCH (07:59)
[2022-08-07 08:26] LABS: BASOPHILS % (AUTO) 0.2 % (0.0-2.0); EOSINOPHILS % (AUTO) 0.7 % (0.0-6.0); HEMATOCRIT 34 % (33-45); HEMOGLOBIN 10.7 g/dL (11.5-14.8); LYMPHOCYTES # (AUTO) 3.1 K/uL (0.8-4.8); LYMPHOCYTES % (AUTO) 30.3 % (20.0-44.0); MEAN CORPUSCULAR HGB CONC 32 g/dl (31.0-36.0); MEAN CORPUSCULAR VOLUME 87 fL (82-100); MONOCYTES # (AUTO) 1.2 K/uL (0.1-1.30); MONOCYTES % (AUTO) 11.4 % (2.0-12.0); NEUTROPHILS # (AUTO) 5.8 K/uL (1.8-8.9); NEUTROPHILS % (AUTO) 57.4 % (43.0-81.0); PLATELET COUNT (AUTO) 159 K/uL (150-450); RED BLOOD CELL COUNT(AUTO) 3.94 MIL/uL (4.0-5.2); WHITE BLOOD COUNT (AUTO) 10.1 K/uL (4.3-11.0)
--- NOTE | 2022-08-07 09:23 | NUR ---
MRI ON HOLD PER DR. LUGO.
[2022-08-07] MEDS: ASPIRIN 81 MG TAB.CHEW PO SCH (09:33)
--- NOTE | 2022-08-07 09:39 | NUR ---
MRI APPROVED,[facility] NOTIFIED.
[2022-08-07] MEDS: CLOPIDOGREL BISULFATE 75 MG TABLET PO SCH (10:40)
[2022-08-07 13:00] VITALS: BP 178/79
[2022-08-07 16:00] VITALS: BP 182/84
--- NOTE | 2022-08-07 18:08 | NUR ---
RN NOTE ACCUCHECK DONE AND NOTED PT WITH BS 412 MG/DL. REJECTED RESULT AND REPEATED AGAIN WITH NOW BS RESULT OF 454 MG/DL. CALLED HOSPITALIST KARLY ANDERSON NP AND MADE AWARE OF PT'S BS. NO NEW ORDERS FROM [facility] BRANDT AT THIS TIME. PER KARLY TO ADMINISTER CURRENT ORDER OF MODERATE SLIDING SCALE. 15 UNITS OF INSULIN COVERAGE ADMINISTERED ORDERED.
--- NOTE | 2022-08-07 19:20 | NUR ---
FINANCIAL WRITER OPENING NOTE RECEIVED PATIENT FROM AM NURSE; PATIENT IS A/O X 4, ABLE TO MAKE NEEDS KNOWN, WITH DAUGHTER AT BEDSIDE; STABLE ON ROOM AIR, BREATHING EVENLY AND NO S/S OF DISTRESS NOTED; HOOKED TO ROTOFORMER BACKTENDER CURRENTLY READING SINUS RHYTHM HR 80S; WITH MIDLINE ACCESS AT GAETANO G#18; SAFETY MEASURES IMPLEMENTED, BED IN LOW AND LOCKED POSITION, SIDE RAILS UP X 2, BED ALARM ON AND CALL LIGHT WITHIN REACH; WILL CONTINUE TO MONITOR THROUGHOUT SHIFT
--- NOTE | 2022-08-07 19:25 | NUR ---
OIL PROSPECTING OBSERVER CLOSING NOTE PT ASLEEP IN BED, EASILY AROUSED. PT IS A/O X4, ABLE TO MAKE NEEDS KNOWN. ON ROOM AIR, TOLERATING WELL. NO SOB NOTED. NOT IN ANY SIGN OF RESPIRATORY DISTRESS. ON TELE GO GO DANCER WITH CURRENT READING SINUS RHYTHM, HR 70. NO C/O CARDIAC DISTRESS VOICED OUT AT THIS TIME. ALL NEEDS ATTENDED. KEPT CLEAN AND COMFORTABLE AT ALL TIMES. IV ACCESS ON GAETANO G#18 MIDLINE INTACT AND PATENT. ALL NEEDS ATTENDED. KEPT CLEAN AND COMFORTABLE AT ALL TIMES. REASSESSED PT'S BS AFTER 15 UNITS ADMINISTRATION. BS IS 331 MG/DL. HOSPITALIST [facility] BRANDT AWARE. ENDORSED TO PASSENGER REPRESENTATIVE NURSE TO ASSESS BS. SAFETY MEASURES IN PLACE: BED IN LOWEST AND LOCKED POSITION, SIDE RAILS UP X2, BED ALARM ON, AND CALL LIGHT WITHIN REACH. ENDORSED TO PASSENGER REPRESENTATIVE NURSE FOR GAGE.
[2022-08-07 20:00] VITALS: BP 195/100
[2022-08-07] MEDS: SIMVASTATIN 20 MG TABLET PO SCH (22:03)
[2022-08-07] MEDS: ENOXAPARIN SODIUM 40 MG/0.4 ML DISP.SYRIN SQ SCH (22:04)
[2022-08-07] MEDS: *INSULIN REGULAR(HUMULIN R)HUM 100 UNIT/ML VIAL SQ PRN (22:20)
[2022-08-08] VITALS: BP 161/71
--- NOTE | 2022-08-08 01:30 | NUR ---
LEAK INSPECTOR NOTE PATIENT VERBALIZED "MY HEART'S BEATING FAST", IMMEDIATELY CHECKED HEART'S RHYTHM ON TELE MONITOR AND IT WAS SINUS RHYTHM 110S BPM; ELEVATED HOB; CHECKED VITAL SIGNS; AT 0124H, PATIENT'S BLOOD SUGAR WAS 39. CHARGE NURSE MADE AWARE AND STARTED DEXTROSE 10% 250 ML AT 0128H; ETL DEVELOPER LUCA MADE AWARE; MONITORED PATIENT ALLTHROUGHOUT
--- NOTE | 2022-08-08 02:00 | NUR ---
WIND ENERGY SYSTEMS INSTALLER NOTE RECHECKED PATIENT'S BLOOD SUGAR AT 0158H AND IT WENT UP TO 185. CHARGE NURSE MADE AWARE. PATIENT VERBALIZED FEELING BETTER AND WAS ABLE TO SLEEP COMFORTABLY
[2022-08-08 05:00] VITALS: BP 177/75
[2022-08-08] MEDS: BLOOD SUGAR DIAGNOSTIC 1 EACH STRIP IN SCH ×4 (06:49→21:45)
[2022-08-08] MEDS: INSULIN REGULAR, HUMAN 100 UNIT/ML 3 ML VIAL SQ PRN ×3 (07:00→17:22)
--- NOTE | 2022-08-08 07:00 | NUR ---
THREAD MILLING MACHINE SET UP OPERATOR NOTE ACCUCHECK WAS DONE AND BLOOD SUGAR WAS 169. ADMINISTERED 3 UNITS OF INSULIN PER SLIDING SCALE. WILL ENDORSE TO AM SHIFT NURSE
[2022-08-08 07:07] LABS: BASOPHILS % (AUTO) 0.5 % (0.0-2.0); EOSINOPHILS % (AUTO) 0.9 % (0.0-6.0); HEMATOCRIT 35 % (33-45); HEMOGLOBIN 11.1 g/dL (11.5-14.8); LYMPHOCYTES # (AUTO) 2.5 K/uL (0.8-4.8); LYMPHOCYTES % (AUTO) 26.8 % (20.0-44.0); MEAN CORPUSCULAR HGB CONC 32 g/dl (31.0-36.0); MEAN CORPUSCULAR VOLUME 85 fL (82-100); MONOCYTES # (AUTO) 1.1 K/uL (0.1-1.30); MONOCYTES % (AUTO) 11.4 % (2.0-12.0); NEUTROPHILS # (AUTO) 5.6 K/uL (1.8-8.9); NEUTROPHILS % (AUTO) 60.4 % (43.0-81.0); PLATELET COUNT (AUTO) 156 K/uL (150-450); RED BLOOD CELL COUNT(AUTO) 4.11 MIL/uL (4.0-5.2); WHITE BLOOD COUNT (AUTO) 9.3 K/uL (4.3-11.0)
[2022-08-08 07:17] LABS: CALCIUM, SERUM 9.1 mg/dL (8.5-10.1); CARBON DIOXIDE 28 mmol/L (21-32); CHLORIDE 104 mmol/L (98-107); GLUCOSE 169 mg/dL (74-106); POTASSIUM 3.5 mmol/L (3.5-5.1); SODIUM SERUM 142 mmol/L (136-145); UREA NITROGEN, BLOOD 19 mg/dL (7-18)
--- NOTE | 2022-08-08 07:27 | NUR ---
COORDINATE MEASURING MACHINE TECHNICIAN OPENING NOTE RECEIVED PT ASLEEP IN BED, EASILY AROUSED. PT IS A/O X4, ABLE TO MAKE NEEDS KNOWN. ON ROOM AIR, TOLERATING WELL. NO SOB NOTED. NOT IN ANY SIGN OF RESPIRATORY DISTRESS. ON TELE ELECTRIC SIGN WIRER WITH CURRENT READING SINUS RHYTHM, HR 74. NO C/O CARDIAC DISTRESS VOICED OUT AT THIS TIME. IV ACCESS ON GAETANO G#18 MIDLINE INTACT AND PATENT. SAFETY MEASURES IN PLACE: BED IN LOWEST AND LOCKED POSITION, SIDE RAILS UP X2, BED ALARM ON, AND CALL LIGHT WITHIN REACH. WILL CONTINUE PT WITH PLAN OF CARE.
--- NOTE | 2022-08-08 07:30 | NUR ---
DRONE OPERATOR CLOSING NOTE PATIENT IS A/O X 4, ABLE TO MAKE NEEDS KNOWN; STABLE ON ROOM AIR, BREATHING EVENLY AND NO S/S OF DISTRESS NOTED; HOOKED TO FUNDING ANALYST CURRENTLY READING SINUS RHYTHM HR 80S; WITH MIDLINE ACCESS AT GAETANO G#18 SALINE LOCK, INTACT AND PATENT; ADMINISTERED MEDICATIONS PRESCRIBED; PATIENT'S NEEDS ATTENDED; MONITORED PATIENT ACCORDINGLY; SAFETY MEASURES IMPLEMENTED, BED IN LOW AND LOCKED POSITION, SIDE RAILS UP X 2, BED ALARM ON AND CALL LIGHT WITHIN REACH; WILL ENDORSE TO AM NURSE FOR GAGE.
[2022-08-08 08:08] VITALS: BP 164/68
[2022-08-08] MEDS: PANTOPRAZOLE 40 MG TABLET.DR PO SCH (08:15)
[2022-08-08] MEDS: CLOPIDOGREL BISULFATE 75 MG TABLET PO SCH (08:23)
[2022-08-08] MEDS: ASPIRIN 81 MG TAB.CHEW PO SCH (08:23)
[2022-08-08 11:32] VITALS: BP 168/85
--- NOTE | 2022-08-08 13:24 | NUR ---
MUSIC INSTRUCTOR CLOSING NOTE PT AWAKE AND RESTING IN BED. PT IS A/O X4, ABLE TO MAKE NEEDS KNOWN. ON ROOM AIR, TOLERATING WELL. NO SOB NOTED. NOT IN ANY SIGN OF RESPIRATORY DISTRESS. ON TELE FLAVORING MACHINE OPERATOR WITH CURRENT READING SINUS RHYTHM, HR 70. NO C/O CARDIAC DISTRESS VOICED OUT AT THIS TIME. IV ACCESS ON GAETANO G#18 MIDLINE INTACT AND PATENT. SAFETY MEASURES IN PLACE: BED IN LOWEST AND LOCKED POSITION, SIDE RAILS UP X2, BED ALARM ON, AND CALL LIGHT WITHIN REACH. REPORT GIVEN TO MAYRA FOR CONTINUITY OF CARE.
[2022-08-08 16:20] VITALS: BP_SYST 145; BP_SYST 182; BP_DIAS 71; BP_DIAS 80
--- NOTE | 2022-08-08 19:20 | NUR ---
MS RN CLOSING NOTE (DAY SHIFT) PT AWAKE AND RESTING IN BED. PT IS A/O X4, ABLE TO MAKE NEEDS KNOWN. ON ROOM AIR, TOLERATING WELL. NO SOB NOTED. NOT IN ANY SIGN OF RESPIRATORY DISTRESS. NO LONGER ON TELE LIQUID HYDROGEN PLANT OPERATOR, DISCONTINUED BY MD. NO C/O CARDIAC DISTRESS VOICED AT THIS TIME. IV ACCESS ON LEFT UA G#18 MIDLINE INTACT AND PATENT. PT HAD GOOD APPETITE. SAFETY MEASURES IN PLACE: BED IN LOWEST AND LOCKED POSITION, SIDE RAILS UP X 2, BED ALARM ON, AND CALL LIGHT WITHIN REACH. PATIENT HAD AMPLE URINE OUTPUT COLLECTED BY PUREWICK AND DIAPER. HAD ONE MEDIUM SIZE, FORMED, SOFT, BROWN STOOL ON BED SIDE COMMODE. REPORT GIVEN TO LEATHER NOVELTY PARTS CUTTER RNSHANNAN, FOR CONTINUITY OF CARE.
--- NOTE | 2022-08-08 19:30 | NUR ---
MS RN OPENING NOTE PATIENT IS A/O X 4, ABLE TO MAKE NEEDS KNOWN; STABLE ON ROOM AIR, BREATHING EVENLY AND NO S/S OF DISTRESS NOTED; TRANSFERRED TO [place]; WITH MIDLINE ACCESS AT GAETANO G#18 SALINE LOCK, INTACT AND PATENT; ENCOURAGED VERBALIZATION OF NEEDS; SAFETY MEASURES IMPLEMENTED, BED IN LOW AND LOCKED POSITION, SIDE RAILS UP X 2, BED ALARM ON AND CALL LIGHT WITHIN REACH; WILL CONTINUE TO MONITOR THROUGHOUT SHIFT
[2022-08-08 20:00] VITALS: BP 180/82
[2022-08-08] MEDS: SIMVASTATIN 20 MG TABLET PO SCH (21:15)
[2022-08-08] MEDS: ENOXAPARIN SODIUM 40 MG/0.4 ML DISP.SYRIN SQ SCH (21:16)
[2022-08-08] MEDS: *INSULIN REGULAR(HUMULIN R)HUM 100 UNIT/ML VIAL SQ PRN (21:49)
[2022-08-09 05:57] LABS: BASOPHILS % (AUTO) 0.3 % (0.0-2.0); EOSINOPHILS % (AUTO) 0.8 % (0.0-6.0); HEMATOCRIT 35 % (33-45); HEMOGLOBIN 11.3 g/dL (11.5-14.8); LYMPHOCYTES # (AUTO) 2.8 K/uL (0.8-4.8); MEAN CORPUSCULAR HGB CONC 33 g/dl (31.0-36.0); MEAN CORPUSCULAR VOLUME 84 fL (82-100); MONOCYTES # (AUTO) 1.1 K/uL (0.1-1.30); MONOCYTES % (AUTO) 11.4 % (2.0-12.0); NEUTROPHILS # (AUTO) 5.7 K/uL (1.8-8.9); NEUTROPHILS % (AUTO) 58.5 % (43.0-81.0); PLATELET COUNT (AUTO) 168 K/uL (150-450); RED BLOOD CELL COUNT(AUTO) 4.13 MIL/uL (4.0-5.2); WHITE BLOOD COUNT (AUTO) 9.7 K/uL (4.3-11.0)
[2022-08-09 06:14] LABS: CALCIUM, SERUM 8.9 mg/dL (8.5-10.1); CARBON DIOXIDE 28 mmol/L (21-32); CHLORIDE 104 mmol/L (98-107); CREATININE 1.3 mg/dL (0.6-1.3); GLUCOSE 237 mg/dL (74-106); POTASSIUM 3.6 mmol/L (3.5-5.1); SODIUM SERUM 140 mmol/L (136-145); UREA NITROGEN, BLOOD 19 mg/dL (7-18)
[2022-08-09] MEDS: INSULIN REGULAR, HUMAN 100 UNIT/ML 3 ML VIAL SQ PRN ×2 (06:50→12:03)
[2022-08-09] MEDS: BLOOD SUGAR DIAGNOSTIC 1 EACH STRIP IN SCH ×4 (06:50→21:26)
--- NOTE | 2022-08-09 06:55 | NUR ---
MS RN CLOSING NOTE PATIENT IS A/O X 4, ABLE TO MAKE NEEDS KNOWN; STABLE ON ROOM AIR, BREATHING EVENLY AND NO S/S OF DISTRESS NOTED; TRANSFERRED FROM [facility] TO [place]; WITH MIDLINE ACCESS AT GAETANO G#18 SALINE LOCK, INTACT AND PATENT; ADMINISTERED MEDICATIONS PRESCRIBED; PATIENT'S NEEDS ATTENDED; ADMINISTERED INSULIN PER SLIDING SCALE; MONITORED PATIENT ACCORDINGLY; SAFETY MEASURES IMPLEMENTED, BED IN LOW AND LOCKED POSITION, SIDE RAILS UP X 2, BED ALARM ON AND CALL LIGHT WITHIN REACH; WILL ENDORSE TO AM NURSE FOR GAGE.
--- NOTE | 2022-08-09 07:30 | NUR ---
MS RN OPENING NOTES RECEIVED PATIENT AWAKE, LYING IN BED. PATIENT IS A/O X4. ABLE TO MAKE NEEDS KNOWN. NO SOB AND NO DISTRESS NOTED. BREATHING EVEN AND UNLABORED IN ROOM AIR. IV ACCESS GAETANO MIDLINE G#18 SL, INTACT. BED LOCKED IN THE LOWEST POSITION. CALL LIGHT AND TABLE IN EASY REACH. SIDE RAILS UP X2. BED ALARM ON. WILL CONTINUE TO MONITOR CLOSELY FOR ANY GAGE AND ASSIST PATIENT WITH IMMEDIATE NEEDS.
[2022-08-09 08:11] VITALS: BP 192/78
[2022-08-09] MEDS: PANTOPRAZOLE 40 MG TABLET.DR PO SCH (08:21)
[2022-08-09] MEDS: CLOPIDOGREL BISULFATE 75 MG TABLET PO SCH (08:21)
[2022-08-09] MEDS: ASPIRIN 81 MG TAB.CHEW PO SCH (08:21)
[2022-08-09 08:32] VITALS: BP 150/90
[2022-08-09] MEDS ORDERED: SERT50TA12 PO (10:02)
[2022-08-09] MEDS ORDERED: ATOR10TA PO (10:02)
[2022-08-09] MEDS ORDERED: AMLO-213 PO (10:02)
[2022-08-09] MEDS ORDERED: INSU100I26 SQ (10:02)
[2022-08-09] MEDS ORDERED: LATA2.5D15 EACHEYE (10:02)
[2022-08-09] MEDS ORDERED: GABA300C PO (10:02)
[2022-08-09] MEDS ORDERED: ASPI-1420 PO (10:02)
[2022-08-09] MEDS ORDERED: LOSA100T31 PO (10:02)
[2022-08-09] MEDS ORDERED: INSU100I14 SQ (10:02)
[2022-08-09] MEDS ORDERED: LABE100T5 PO (10:02)
[2022-08-09] MEDS ORDERED: DOCU100C58 PO (10:02)
[2022-08-09] MEDS ORDERED: DORZ10DR11 EACHEYE (10:02)
[2022-08-09] MEDS: AMLODIPINE BESYLATE 10 MG TABLET PO SCH (11:24)
[2022-08-09] MEDS: LABETALOL HCL (100MG) 100 MG TABLET PO SCH ×2 (11:27→20:43)
[2022-08-09] MEDS: TIMOLOL MAL/DORZOLAM HCL OPHTH 10 ML BOTTLE EACHEYE SCH ×2 (11:28→17:16)
[2022-08-09 16:06] VITALS: BP 156/58
[2022-08-09] MEDS: *INSULIN REGULAR(HUMULIN R)HUM 100 UNIT/ML VIAL SQ PRN ×2 (17:16→21:33)
[2022-08-09] MEDS: DOCUSATE SODIUM 100 MG CAPSULE PO SCH (17:17)
[2022-08-09] MEDS: LOSARTAN POTASSIUM 50 MG TABLET PO SCH (17:33)
[2022-08-09] MEDS: INSULIN GLARGINE, 100 UNIT/ML CARTRIDGE SQ SCH (17:36)
[2022-08-09 18:00] VITALS: BP 176/64
--- NOTE | 2022-08-09 19:14 | NUR ---
MS RN CLOSING NOTES PATIENT AWAKE, LYING IN BED. PATIENT IS A/O X4. ABLE TO MAKE NEEDS KNOWN. NO SOB AND NO DISTRESS NOTED. BREATHING EVEN AND UNLABORED IN ROOM AIR. IV ACCESS GAETANO MIDLINE G#18 SL, INTACT. BED LOCKED IN THE LOWEST POSITION. CALL LIGHT AND TABLE IN EASY REACH. SIDE RAILS UP X2. BED ALARM ON. SCHEDULED MEDICATION GIVEN, SKIN CARE IMPLEMENTED. PATIENT WAS TURNED AND REPOSITIONED PER PROTOCOL. EXIT CARE AND DISCHARGE DONE, WAITING FOR PLACEMENT. WILL ENDORSE TO HEAVY COIL WINDER NURSE
--- NOTE | 2022-08-09 19:20 | NUR ---
MS RN OPENING NOTE PATIENT RESTING IN BED WITH DAUGHTER AT BEDSIDE, A/O X 4, ABLE TO MAKE NEEDS KNOWN; STABLE ON ROOM AIR, BREATHING EVENLY AND NO S/S OF DISTRESS NOTED; WITH MIDLINE ACCESS AT GAETANO G#18 SALINE LOCK, INTACT AND PATENT; ENCOURAGED VERBALIZATION OF NEEDS; SAFETY MEASURES IMPLEMENTED, BED IN LOW AND LOCKED POSITION, SIDE RAILS UP X 2, BED ALARM ON AND CALL LIGHT WITHIN REACH; WILL CONTINUE TO MONITOR THROUGHOUT SHIFT
[2022-08-09 20:00] VITALS: BP 157/76
[2022-08-09] MEDS: ENOXAPARIN SODIUM 30 MG/0.3 ML DISP.SYRIN SQ SCH (20:43)
[2022-08-09] MEDS: SIMVASTATIN 20 MG TABLET PO SCH (21:14)
[2022-08-09] MEDS: GABAPENTIN 300 MG CAPSULE PO SCH (21:14)
[2022-08-09] MEDS: LATANOPROST EYE DROP 0.005% 2.5 ML BOTTLE EACHEYE SCH (21:17)
[2022-08-10] VITALS: BP 117/69
[2022-08-10 06:01] LABS: BASOPHILS % (AUTO) 0.3 % (0.0-2.0); EOSINOPHILS % (AUTO) 1.2 % (0.0-6.0); HEMATOCRIT 36 % (33-45); HEMOGLOBIN 11.3 g/dL (11.5-14.8); LYMPHOCYTES # (AUTO) 2.6 K/uL (0.8-4.8); LYMPHOCYTES % (AUTO) 28.7 % (20.0-44.0); MEAN CORPUSCULAR HGB CONC 32 g/dl (31.0-36.0); MEAN CORPUSCULAR VOLUME 84 fL (82-100); MONOCYTES % (AUTO) 11.5 % (2.0-12.0); NEUTROPHILS # (AUTO) 5.3 K/uL (1.8-8.9); NEUTROPHILS % (AUTO) 58.3 % (43.0-81.0); PLATELET COUNT (AUTO) 181 K/uL (150-450); RED BLOOD CELL COUNT(AUTO) 4.21 MIL/uL (4.0-5.2)
[2022-08-10 06:27] LABS: CALCIUM, SERUM 8.9 mg/dL (8.5-10.1); CREATININE 1.1 mg/dL (0.6-1.3); POTASSIUM 3.7 mmol/L (3.5-5.1)
[2022-08-10] MEDS: BLOOD SUGAR DIAGNOSTIC 1 EACH STRIP IN SCH ×4 (06:45→21:26)
[2022-08-10] MEDS: INSULIN REGULAR, HUMAN 100 UNIT/ML 3 ML VIAL SQ PRN (06:55)
--- NOTE | 2022-08-10 07:00 | NUR ---
MS RN OPENING NOTES: RECEIVED PT IN BED AWAKE,ALERT AND ORIENTED X 3-4 WITH L SIDED WEAKNESS, LEFT EAR ALGAACIQ, LEFT EYE CHRONIC BLINDNESS, RIGHT EYE BLURRED VISION. NO SOB OR CARDIAC DISTRESS NOTED, DENIES PAIN AT THIS TIME. IV ACCESS ON GAETANO GAUGE 18 PATENT, INTACT AND SALINE LOCKED. SAFETY MEASURES MAINTAINED: BED LOCKED AND IN LOWEST POSITION, SIDE RAILS UP X 2 CALL LIGHT IN EASY REAH FOR HELP/ASSISTANCE. WILL MONITOR PT ACCORDINGLY
--- NOTE | 2022-08-10 07:15 | NUR ---
MS RN CLOSING NOTE PATIENT ASLEEP IN BED, A/O X 4, ABLE TO MAKE NEEDS KNOWN; STABLE ON ROOM AIR, BREATHING EVENLY AND NO S/S OF DISTRESS NOTED; WITH MIDLINE ACCESS AT GAETANO G#18 SALINE LOCK, INTACT AND PATENT; NO COMPLAINTS OF PAIN AND DISCOMFORT AT THIS TIME; ADMINISTERED MEDICATIONS PRESCRIBED; PATIENT'S NEEDS ATTENDED; MONITORED PATIENT ACCORDINGLY; ADMINISTERED INSULIN PER SLIDING SCALE; SAFETY MEASURES IMPLEMENTED, BED IN LOW AND LOCKED POSITION, SIDE RAILS UP X 2, BED ALARM ON, CALL LIGHT AND TABLE WITHIN REACH; ENDORSED TO AM SHIFT NURSE
[2022-08-10] MEDS: PANTOPRAZOLE 40 MG TABLET.DR PO SCH (07:31)
[2022-08-10 08:00] VITALS: BP 162/71
[2022-08-10] MEDS: DOCUSATE SODIUM 100 MG CAPSULE PO SCH ×2 (08:23→16:18)
[2022-08-10] MEDS: LABETALOL HCL (100MG) 100 MG TABLET PO SCH ×2 (08:23→21:13)
[2022-08-10] MEDS: SERTRALINE HCL 50 MG TABLET PO SCH (08:23)
[2022-08-10] MEDS: ASPIRIN 81 MG TAB.CHEW PO SCH (08:24)
[2022-08-10] MEDS: AMLODIPINE BESYLATE 10 MG TABLET PO SCH (08:24)
[2022-08-10] MEDS: CLOPIDOGREL BISULFATE 75 MG TABLET PO SCH (08:24)
[2022-08-10] MEDS: TIMOLOL MAL/DORZOLAM HCL OPHTH 10 ML BOTTLE EACHEYE SCH ×2 (09:39→16:18)
[2022-08-10] MEDS: *INSULIN REGULAR(HUMULIN R)HUM 100 UNIT/ML VIAL SQ PRN ×3 (11:59→21:29)
[2022-08-10 16:00] VITALS: BP 148/72
[2022-08-10] MEDS: LOSARTAN POTASSIUM 50 MG TABLET PO SCH (17:08)
[2022-08-10] MEDS: INSULIN GLARGINE, 100 UNIT/ML CARTRIDGE SQ SCH (17:09)
--- NOTE | 2022-08-10 19:05 | NUR ---
MS CLOSING NOTES: PATIENT IN BED AWAKE, ALERT AND ORIENTED X 4 AND ABLE TO MAKE NEEDS KNOWN. NO SOB OR CARDIAC DISTRESS NOTED. ON ROOM AIR AND TOLERATING WELL. ON BLOOD SUGAR MONITORING AND INSULIN ADMINISTRATION PER SL ORDERED. NO S/SX OF HYPO/HYPERGLYCEMIA NOTED. ALL MEDS GIVEN CRUSHED AND MIXED WITH VANILLA PUDDING. IV ACCESS ON GAETANO GAUGE 18 ML, PATENT, INTACT AND SALINE LOCKED. SAFETY MEASURES MAINTAINED: BED LOCKED AND IN LOWEST POSITION SIDE RAILS UP X 2. CALL LIGHT IN EASY REACH. ENDORSED TO CALENDER OPERATOR HELPER RN FOR CONTINUITY OF CARE.
--- NOTE | 2022-08-10 19:36 | NUR ---
MS RN OPENING NOTE PATIENT AWAKE IN BED, ALERT/ORIENTED X 4, PT ABLE TO MAKE NEEDS KNOWN, DAUGHTER AT BEDSIDE. PATIENT DENIES PAIN AT THIS TIME. PATIENT STABLE ON RA, NO S/S OF DISTRESS OR SOB NOTED, BREATHING EVEN AND UNLABORED. IV ACCESS ON GAETANO MIDLINE INTACT AND SALINE LOCKED. SAFETY MEASURES IN PLACE: CALL LIGHT WITHIN REACH, SIDE RAILS UP X 3, BED LOCKED IN LOWEST POSITION, HOB ELEVATED, BED ALARM ON. WILL CONTINUE TO MONITOR PATIENT
[2022-08-10] MEDS: GABAPENTIN 300 MG CAPSULE PO SCH (21:13)
[2022-08-10] MEDS: SIMVASTATIN 20 MG TABLET PO SCH (21:13)
[2022-08-10] MEDS: LATANOPROST EYE DROP 0.005% 2.5 ML BOTTLE EACHEYE SCH (21:26)
[2022-08-10] MEDS: ENOXAPARIN SODIUM 30 MG/0.3 ML DISP.SYRIN SQ SCH (21:26)
--- NOTE | 2022-08-10 23:36 | NUR ---
RN NOTE PATIENT HAVING LOOSE STOOL, 2 EPISODES SO FAR ON THIS SHIFT, PER DAYSHIFT PATIENT HAD 4 LOOSE BM'S DURING DAY. CONTACTED WORKFORCE MANAGEMENT COORDINATOR MD MENG SEGOVIA, WITH ORDER TO COLLECT STOOL SAMPLE FOR C. DIFF TESTING
[2022-08-11 05:43] LABS: BASOPHILS % (AUTO) 0.2 % (0.0-2.0); EOSINOPHILS % (AUTO) 1.1 % (0.0-6.0); HEMATOCRIT 35 % (33-45); HEMOGLOBIN 11.1 g/dL (11.5-14.8); LYMPHOCYTES # (AUTO) 2.4 K/uL (0.8-4.8); MEAN CORPUSCULAR HGB CONC 32 g/dl (31.0-36.0); MEAN CORPUSCULAR VOLUME 85 fL (82-100); NEUTROPHILS # (AUTO) 5.5 K/uL (1.8-8.9); NEUTROPHILS % (AUTO) 60.7 % (43.0-81.0); PLATELET COUNT (AUTO) 171 K/uL (150-450); RED BLOOD CELL COUNT(AUTO) 4.12 MIL/uL (4.0-5.2)
[2022-08-11 06:12] LABS: CALCIUM, SERUM 8.8 mg/dL (8.5-10.1); CREATININE 1.1 mg/dL (0.6-1.3); POTASSIUM 3.7 mmol/L (3.5-5.1)
--- NOTE | 2022-08-11 06:20 | NUR ---
MS RN CLOSING NOTE PATIENT SLEEPING IN BED, ALERT/ORIENTED X 4, PT ABLE TO MAKE NEEDS KNOWN. PATIENT STABLE ON RA, NO S/S OF DISTRESS OR SOB NOTED, BREATHING EVEN AND UNLABORED. GAETANO MIDLINE INTACT AND SALINE LOCKED. MEDICATIONS GIVEN ORDERED, PT NEEDS MET THROUGHOUT SHIFT. PUREWICK IN PLACE WITH 400 ML OUTPUT, PUREWICK CHANGED TWICE THIS SHIFT. PATIENT HAD 2 MUSHY/LOOSE BM'S THIS SHIFT, PER HYDROMETER CALIBRATOR MENG SEGOVIA COLLECT STOOL SAMPLE FOR C. DIFF TESTING, HOWEVER PATIENT DID NOT HAVE ANYMORE BM AFTER ORDER WAS PLACED. SAFETY MEASURES IN PLACE: CALL LIGHT WITHIN REACH, SIDE RAILS UP X 3, BED LOCKED IN LOWEST POSITION, HOB ELEVATED, BED ALARM ON. WILL ENDORSE TO DAYSHIFT RN FOR CONTINUITY OF CARE
[2022-08-11] MEDS: BLOOD SUGAR DIAGNOSTIC 1 EACH STRIP IN SCH ×4 (06:44→22:36)
[2022-08-11] MEDS: INSULIN REGULAR, HUMAN 100 UNIT/ML 3 ML VIAL SQ PRN (06:49)
[2022-08-11 07:00] VITALS: BP_SYST 126; BP_SYST 152; BP_DIAS 66; BP_DIAS 69
--- NOTE | 2022-08-11 07:05 | NUR ---
MS RN OPENING NOTE PATIENT SLEEPING IN BED BUT AROUSABLE A/O X 4, PT ABLE TO MAKE NEEDS KNOWN, PATIENT DENIES PAIN AT THIS TIME. PATIENT STABLE ON RA, NO S/S OF DISTRESS OR SOB NOTED, BREATHING EVEN AND UNLABORED. IV ACCESS ON GAETANO MIDLINE INTACT AND SALINE LOCKED. SAFETY MEASURES IN PLACE: CALL LIGHT WITHIN REACH, SIDE RAILS UP X 3, BED LOCKED IN LOWEST POSITION, HOB ELEVATED, BED ALARM ON. WILL CONTINUE TO MONITOR THE PATIENT
[2022-08-11] MEDS: ASPIRIN 81 MG TAB.CHEW PO SCH (08:13)
[2022-08-11] MEDS: PANTOPRAZOLE 40 MG TABLET.DR PO SCH (08:13)
[2022-08-11] MEDS: DOCUSATE SODIUM 100 MG CAPSULE PO SCH ×2 (08:13→17:22)
[2022-08-11] MEDS: TIMOLOL MAL/DORZOLAM HCL OPHTH 10 ML BOTTLE EACHEYE SCH ×2 (08:14→17:19)
[2022-08-11] MEDS: LABETALOL HCL (100MG) 100 MG TABLET PO SCH ×2 (08:15→21:52)
[2022-08-11] MEDS: CLOPIDOGREL BISULFATE 75 MG TABLET PO SCH (08:16)
[2022-08-11] MEDS: SERTRALINE HCL 50 MG TABLET PO SCH (08:16)
[2022-08-11] MEDS: AMLODIPINE BESYLATE 10 MG TABLET PO SCH (08:16)
[2022-08-11] MEDS: *INSULIN REGULAR(HUMULIN R)HUM 100 UNIT/ML VIAL SQ PRN ×3 (11:19→22:40)
[2022-08-11 16:00] VITALS: BP_SYST 112; BP_SYST 154; BP_DIAS 64; BP_DIAS 68
[2022-08-11] MEDS: LOSARTAN POTASSIUM 50 MG TABLET PO SCH (17:19)
[2022-08-11] MEDS: INSULIN GLARGINE, 100 UNIT/ML CARTRIDGE SQ SCH (17:38)
--- NOTE | 2022-08-11 18:33 | NUR ---
MS RN CLOSING NOTE PATIENT AWAKE IN BED, ALERT/ORIENTED X 4, PT ABLE TO MAKE NEEDS KNOWN. PATIENT STABLE ON RA, NO S/S OF DISTRESS OR SOB NOTED, BREATHING EVEN AND UNLABORED. GAETANO MIDLINE INTACT AND SALINE LOCKED. MEDICATIONS GIVEN ORDERED, PT NEEDS MET THROUGHOUT SHIFT. PUREWICK IN PLACE WITH 600 ML OUTPUT, ON PUREWICK. PATIENT DID NOT PRODUCE BM THIS SHIFT AWAITING TO COLLECT STOOL SAMPLE FOR C. DIFF. SAFETY MEASURES IN PLACE: CALL LIGHT WITHIN REACH, SIDE RAILS UP X 3, BED LOCKED IN LOWEST POSITION, HOB ELEVATED, BED ALARM ON. WILL ENDORSE TO NIGHTSHIFT RN FOR CONTINUITY OF CARE
--- NOTE | 2022-08-11 19:30 | NUR ---
MS RN OPENING NOTE RECEIVED PATIENT IN BED; AWAKE, ALERT AND ORIENTED X 3-4. WITH LEFT SIDED WEAKNESS, LEFT EAR HARD OF HEARING, LEFT EYE CHRONIC BLINDNESS, RIGHT EYE BLURRED VISION. ON ROOM AIR; TOLERATING WELL WITH NO S/S OF RESPIRATORY OR CARDIAC DISTRESS. DENIES ANY PAIN OR DISCOMFORT AT THIS TIME. WITH LEFT UPPER ARM MIDLINE 18g; PATENT, INTACT AND SALINE LOCKED. SAFETY PRECAUTIONS IMPLEMENTED: CALL LIGHT AND TABLE WITHIN REACH, SIDE RAILS UP X 3, BED IN LOWEST LOCKED POSITION. WILL MONITOR PATIENT THROUGHOUT SHIFT.
[2022-08-11 20:00] VITALS: BP 147/67
[2022-08-11] MEDS: SIMVASTATIN 20 MG TABLET PO SCH (21:51)
[2022-08-11] MEDS: GABAPENTIN 300 MG CAPSULE PO SCH (21:51)
[2022-08-11] MEDS: ENOXAPARIN SODIUM 30 MG/0.3 ML DISP.SYRIN SQ SCH (21:59)
[2022-08-11] MEDS: LATANOPROST EYE DROP 0.005% 2.5 ML BOTTLE EACHEYE SCH (22:39)
[2022-08-12 06:23] LABS: BASOPHILS % (AUTO) 0.4 % (0.0-2.0); EOSINOPHILS % (AUTO) 1.4 % (0.0-6.0); HEMATOCRIT 32 % (33-45); HEMOGLOBIN 10.4 g/dL (11.5-14.8); LYMPHOCYTES # (AUTO) 2.5 K/uL (0.8-4.8); LYMPHOCYTES % (AUTO) 30.8 % (20.0-44.0); MEAN CORPUSCULAR HGB CONC 32 g/dl (31.0-36.0); MEAN CORPUSCULAR VOLUME 85 fL (82-100); MONOCYTES # (AUTO) 0.8 K/uL (0.1-1.30); MONOCYTES % (AUTO) 10.2 % (2.0-12.0); NEUTROPHILS # (AUTO) 4.6 K/uL (1.8-8.9); NEUTROPHILS % (AUTO) 57.2 % (43.0-81.0); PLATELET COUNT (AUTO) 188 K/uL (150-450); RED BLOOD CELL COUNT(AUTO) 3.82 MIL/uL (4.0-5.2); WHITE BLOOD COUNT (AUTO) 8.1 K/uL (4.3-11.0)
[2022-08-12] MEDS: BLOOD SUGAR DIAGNOSTIC 1 EACH STRIP IN SCH ×2 (06:38→11:46)
[2022-08-12] MEDS: INSULIN REGULAR, HUMAN 100 UNIT/ML 3 ML VIAL SQ PRN ×2 (06:39→11:48)
--- NOTE | 2022-08-12 06:45 | NUR ---
MS RN CLOSING NOTE PATIENT IN BED; AWAKE, A/O X 3-4. WITH LEFT SIDED WEAKNESS, HARD OF HEARING ON LEFT EAR, LEFT EYE CHRONIC BLINDNESS, RIGHT EYE BLURRED VISION. STILL ON ROOM AIR; WELL TOLERATED WITH NO S/S OF RESPIRATORY OR CARDIAC DISTRESS. NO C/O ANY PAIN OR DISCOMFORT AT THIS TIME. WITH GAETANO MIDLINE 18g; PATENT, INTACT AND SALINE LOCKED. SAFETY PRECAUTIONS MAINTAINED: CALL LIGHT AND TABLE WITHIN REACH, SIDE RAILS UP X 3, BED IN LOWEST LOCKED POSITION. ENDORSED TO MORNING SHIFT FOR GAGE.
[2022-08-12 06:58] LABS: CALCIUM, SERUM 8.8 mg/dL (8.5-10.1); CREATININE 1.2 mg/dL (0.6-1.3); POTASSIUM 3.5 mmol/L (3.5-5.1)
--- NOTE | 2022-08-12 07:30 | NUR ---
MS RN OPENING NOTES RECEIVED PATIENT AWAKE, LYING IN BED. PATIENT IS A/O X4. ABLE TO MAKE NEEDS KNOWN. NO SOB AND NO DISTRESS NOTED. BREATHING EVEN AND UNLABORED IN ROOM AIR. IV ACCESS GAETANO MIDLINE G#18 SL, PATENT AND FLUSHING WELL. BED LOCKED IN THE LOWEST POSITION. CALL LIGHT AND TABLE IN EASY REACH. SIDE RAILS UP X2. BED ALARM ON. WILL CONTINUE TO MONITOR CLOSELY FOR ANY GAGE AND ASSIST PATIENT WITH IMMEDIATE NEEDS.
[2022-08-12 08:00] VITALS: BP 146/66
[2022-08-12] MEDS: PANTOPRAZOLE 40 MG TABLET.DR PO SCH (08:28)
[2022-08-12] MEDS: DOCUSATE SODIUM 100 MG CAPSULE PO SCH (08:51)
[2022-08-12] MEDS: AMLODIPINE BESYLATE 10 MG TABLET PO SCH (08:51)
[2022-08-12 08:52] VITALS: BP 146/66
[2022-08-12] MEDS: LABETALOL HCL (100MG) 100 MG TABLET PO SCH (08:52)
[2022-08-12] MEDS: SERTRALINE HCL 50 MG TABLET PO SCH (08:52)
[2022-08-12] MEDS: CLOPIDOGREL BISULFATE 75 MG TABLET PO SCH (08:52)
[2022-08-12] MEDS: ASPIRIN 81 MG TAB.CHEW PO SCH (08:52)
[2022-08-12] MEDS: TIMOLOL MAL/DORZOLAM HCL OPHTH 10 ML BOTTLE EACHEYE SCH (08:57)
--- NOTE | 2022-08-12 13:17 | NUR ---
MS CASING MAN NOTE PATIENT DISCHARGE IN STABLE MEDICAL CONDITION. A/O X4. V/S TAKEN, STABLE AND RECORDED. NO IV ACCESS. NAME ARM BAND REMOVED. SKIN ASSESSMENT DONE, NO PICTURES TAKEN. ALL BELONGINGS CHECKED AND BELONGINGS LIST SIGNED. HEALTH TEACHING AND DISCHARGE INSTRUCTIONS GIVEN AND VERBALIZED UNDERSTANDING. INSTRUCTED PATIENT TO MAKE AN APPOINTMENT WITH HIS PRIMARY DOCTOR. DISCUSSED PRESCRIPTION WITH PATIENT. INSTRUCTED PATIENT IN CASE OF EMERGENCY TO CALL 911 OR GO TO THE NEAREST ER. REPORT GIVEN TO NURSE AYAH-ROXANNE AT [facility]. PATIENT LEFT VIA GURNEY WITH NO SIGNS OF DISTRESS ACCOMPANIED BY RESEARCH WORKER KITCHEN TO THE [facility]. CHARGE NURSE AWARE OF DISCHARGED.
== END 2022-08-12 13:15 | DRG 45 ==
LOC: ER 15:18 → MED 20:28 → TELE 22:48 → MED 08-08 13:17
PROVIDERS: ADMIT Nurse Practitioner Acute Care; ATTEND Nurse Practitioner Family
PROC: 05HC33Z Insertion of Infusion Device into Left Basilic Vein, Percutaneous Approach (ICD-10-PCS; principal; 2022-08-05)
DX: I63.531 Cerebral infarction due to unspecified occlusion or stenosis of right posterior cerebral artery (principal); E11.649 Type 2 diabetes mellitus with hypoglycemia without coma; E11.36 Type 2 diabetes mellitus with diabetic cataract; E11.42 Type 2 diabetes mellitus with diabetic polyneuropathy; M19.90 Unspecified osteoarthritis, unspecified site; K21.9 Gastro-esophageal reflux disease without esophagitis; R29.707 NIHSS score 7; Z20.822 Contact with and (suspected) exposure to COVID-19; E11.65 Type 2 diabetes mellitus with hyperglycemia; I10 Essential (primary) hypertension; Z90.49 Acquired absence of other specified parts of digestive tract; Z79.4 Long term (current) use of insulin; Z79.899 Other long term (current) drug therapy; R29.810 Facial weakness; E87.6 Hypokalemia; H40.9 Unspecified glaucoma; Z98.890 Other specified postprocedural states; H54.7 Unspecified visual loss; Z68.31 Body mass index [BMI] 31.0-31.9, adult; E66.9 Obesity, unspecified; E78.5 Hyperlipidemia, unspecified; Z79.82 Long term (current) use of aspirin; Z86.73 Personal history of transient ischemic attack (TIA), and cerebral infarction without residual deficits; I65.09 Occlusion and stenosis of unspecified vertebral artery; I70.0 Atherosclerosis of aorta
CPT/HCPCS: 36415; 70450-TC; 70496-TC; 70498-TC; 70551-TC; 71045-TC; 80048-TC; 80061-TC; 81001; 82962-TC; 83880; 84443-TC; 84484-TC; 85025-TC; 85652-TC; 85730-TC; 87081-TC; 92507-TC; 92521; 92526; 92611-TC; 93307-TC; 97112-TC; 97116-TC; 97530-TC; 97535-TC; C9803; G0378; J1650; J1815; J7050; Q9967

== ENCOUNTER 2023-09-12 20:33 | Inpatient (IN) | payer OTHER ==
[~2023-09-12] VITALS: Ht 172.7 cm; Wt 83.0 kg
[~2023-09-12 20:33] MED LIST changes: +AMLO-213 PO; +ASPI-1420 PO; +ATOR10TA PO; +DOCU100C58 PO; +DORZ10DR11 EACHEYE; +GABA300C PO; +INSU100I14 SQ; +INSU100I26 SQ; -INSU10VI3 SQ; +LABE100T5 PO; +LATA2.5D15 EACHEYE; +LOSA100T31 PO; +SERT50TA12 PO
[2023-09-12] MEDS: IV NS 0.9% 1,000 ML BAG IV ONE (21:16)
[2023-09-12 21:34] LABS: BASOPHILS % (AUTO) 0.3 % (0.0-2.0); EOSINOPHILS # (AUTO) 0.1 K/uL (0.0-0.7); EOSINOPHILS % (AUTO) 1.1 % (0.0-6.0); HEMATOCRIT 35 % (33-45); HEMOGLOBIN 11.5 g/dL (11.5-14.8); LYMPHOCYTES # (AUTO) 2.2 K/uL (0.8-4.8); LYMPHOCYTES % (AUTO) 26.8 % (20.0-44.0); MEAN CORPUSCULAR HEMOGLOBIN 27 PG (26.0-33.0); MEAN CORPUSCULAR HGB CONC 33 g/dl (31.0-36.0); MEAN CORPUSCULAR VOLUME 83 fL (82-100); MONOCYTES # (AUTO) 0.7 K/uL (0.1-1.30); NEUTROPHILS # (AUTO) 5.2 K/uL (1.8-8.9); NEUTROPHILS % (AUTO) 62.8 % (43.0-81.0); PLATELET COUNT (AUTO) 175 K/uL (150-450); RED BLOOD CELL COUNT(AUTO) 4.26 MIL/uL (4.0-5.2); RED CELL DISTRIBUTION WIDTH 16.2 % (11.5-15.0); WHITE BLOOD COUNT (AUTO) 8.2 K/uL (4.3-11.0)
[2023-09-12 21:48] LABS: INR 1.05 (0.91-1.10); PARTIAL THROMBOPLASTIN TIME 26.2 SEC (24.3-34.3); PROTHROMBIN TIME 11.1 SECS (9.2-11.1)
[2023-09-12 21:55] LABS: ALANINE AMINOTRANSFERASE 28 U/L (12-78); ALBUMIN 3.1 g/dL (3.4-5.0); ALKALINE PHOSPHATASE 154 U/L (46-116); ASPARTATE AMINOTRANSFERASE 26 U/L (15-37); BILIRUBIN,DIRECT 0.1 mg/dL (0.0-0.2); BILIRUBIN,TOTAL 0.1 mg/dL (0.2-1.0); CALCIUM, SERUM 8.2 mg/dL (8.5-10.1); CHLORIDE 106 mmol/L (98-107); CREATININE 1.2 mg/dL (0.6-1.3); GLUCOSE 59 mg/dL (74-106); SODIUM SERUM 144 mmol/L (136-145); TOTAL PROTEIN, SERUM 7.8 g/dL (6.4-8.2); UREA NITROGEN, BLOOD 23 mg/dL (7-18)
[2023-09-12 22:01] LABS: CARBON DIOXIDE 28 mmol/L (21-32)
[2023-09-12] MEDS ORDERED: hydrALAZINE HCL IV 20 MG VIAL ONE (22:59)
[2023-09-12] MEDS: hydrALAZINE HCL IV 20 MG VIAL IV ONE (23:03)
[2023-09-12] MEDS ORDERED: POTASSIUM CHLORIDE 20 MEQ TAB.PRT.SR PO ONE (23:18)
[2023-09-12] MEDS: POTASSIUM CHLORIDE 20 MEQ TAB.PRT.SR PO ONE (23:27)
[2023-09-13] VITALS (8 sets, daily range): BP systolic 154–185; BP diastolic 58–86; TEMP 97.2–98.4; O2SAT 97–99
[2023-09-13] MEDS ORDERED: ZOLPIDEM TARTRATE 5 MG TABLET PO PRN (00:30)
[2023-09-13] MEDS ORDERED: ONDANSETRON HCL/PF 4 MG/2 ML VIAL IVP PRN (00:30)
[2023-09-13] MEDS ORDERED: MAGNESIUM HYDROXIDE 30 ML UDC PO PRN (00:30)
[2023-09-13] MEDS ORDERED: Z GUARD REMEDY 4 OZ OINT TP PRN (00:30)
[2023-09-13] MEDS ORDERED: MAG HYDROX/AL HYDROX/SIMETH 30 ML UDC PO PRN (00:30)
[2023-09-13] MEDS ORDERED: ACETAMINOPHEN 325 MG TABLET PO PRN (00:30)
[2023-09-13] MEDS: IV D5/ 0.9% NACL 1,000 ML IV SCH (01:36)
[2023-09-13] MEDS: AMLODIPINE BESYLATE 10 MG TABLET PO SCH (08:39)
[2023-09-13] MEDS: DOCUSATE SODIUM 100 MG CAPSULE PO SCH (08:39)
[2023-09-13] MEDS: PANTOPRAZOLE 40 MG TABLET.DR PO SCH (08:39)
[2023-09-13] MEDS: ASPIRIN EC 81 MG TABLET.DR PO SCH (08:40)
[2023-09-13] MEDS: SERTRALINE HCL 50 MG TABLET PO SCH (08:40)
[2023-09-13] MEDS: BLOOD SUGAR DIAGNOSTIC 1 EACH STRIP IN SCH (08:40)
[2023-09-13] MEDS: INSULIN REGULAR, HUMAN 100 UNIT/ML 3 ML VIAL SQ PRN (08:42)
[2023-09-13] MEDS: TIMOLOL MAL/DORZOLAM HCL OPHTH 10 ML BOTTLE EACHEYE SCH (08:45)
[2023-09-13] MEDS: LABETALOL HCL (100MG) 100 MG TABLET PO SCH (09:28)
[2023-09-13] MEDS: IV NS 0.9% 1,000 ML IV PRN (10:00)
[2023-09-13 11:22] LABS: MAGNESIUM 1.3 mg/dL (1.8-2.4)
[2023-09-13 11:41] LABS: THYROID STIMULATING HORMONE 1.546 uIU/mL (0.358-3.74)
[2023-09-13] MEDS ORDERED: Magnesium 1GM/D5W 100ML PREMIX PIGGYBACK IV ONE (12:00)
[2023-09-13] MEDS: Magnesium 1GM/D5W 100ML PREMIX 100 ML IV SCH (13:14)
[2023-09-13] MEDS: DEXTROSE 50%-WATER 50 ML DISP.SYRIN IV PRN (18:03)
[2023-09-13] MEDS: LOSARTAN POTASSIUM 50 MG TABLET PO SCH (18:18)
[2023-09-13] MEDS: ATORVASTATIN 10 MG TABLET PO SCH (18:19)
[2023-09-13] MEDS: GABAPENTIN 300 MG CAPSULE PO SCH (21:19)
[2023-09-13] MEDS: LATANOPROST EYE DROP 0.005% 2.5 ML BOTTLE EACHEYE SCH (21:20)
[2023-09-14] VITALS: BP_SYST 168; BP_SYST 170; BP_DIAS 58; BP_DIAS 70; TEMP 97.9; TEMP 98.6; O2SAT 99
[2023-09-14 04:00] VITALS: BP 153/74; TEMP 97.5; O2SAT 98
[2023-09-14 06:57] LABS: BASOPHILS % (AUTO) 0.2 % (0.0-2.0); EOSINOPHILS # (AUTO) 0.1 K/uL (0.0-0.7); EOSINOPHILS % (AUTO) 1.1 % (0.0-6.0); HEMATOCRIT 36 % (33-45); HEMOGLOBIN 11.6 g/dL (11.5-14.8); LYMPHOCYTES # (AUTO) 2.4 K/uL (0.8-4.8); LYMPHOCYTES % (AUTO) 26.6 % (20.0-44.0); MEAN CORPUSCULAR HEMOGLOBIN 27 PG (26.0-33.0); MEAN CORPUSCULAR HGB CONC 33 g/dl (31.0-36.0); MEAN CORPUSCULAR VOLUME 83 fL (82-100); MONOCYTES # (AUTO) 0.7 K/uL (0.1-1.30); MONOCYTES % (AUTO) 7.6 % (2.0-12.0); NEUTROPHILS # (AUTO) 5.9 K/uL (1.8-8.9); NEUTROPHILS % (AUTO) 64.5 % (43.0-81.0); PLATELET COUNT (AUTO) 177 K/uL (150-450); RED BLOOD CELL COUNT(AUTO) 4.25 MIL/uL (4.0-5.2); WHITE BLOOD COUNT (AUTO) 9.2 K/uL (4.3-11.0)
[2023-09-14 07:09] LABS: CALCIUM, SERUM 8.7 mg/dL (8.5-10.1); MAGNESIUM 1.7 mg/dL (1.8-2.4); PHOSPHORUS 2.4 mg/dL (2.5-4.9); POTASSIUM 3.3 mmol/L (3.5-5.1)
[2023-09-14 08:00] VITALS: BP 157/81; TEMP 98.2; O2SAT 96
[2023-09-14] MEDS: POTASSIUM CHLORIDE 20 MEQ TAB.PRT.SR PO ONE (08:58)
[2023-09-14] MEDS: MAGNESIUM OXIDE 400 MG TABLET PO ONE (08:59)
[2023-09-14] MEDS: K PHOS NEUTRAL 250 MG TABLET PO ONE (09:02)
[2023-09-14] MEDS ORDERED: POTASSIUM PHOSPHATE MM 15 MMOL in IV NS 0.9% 250 ML IV SCH (10:00)
[2023-09-14] MEDS ORDERED: Magnesium 1GM/D5W 100ML PREMIX 100 ML IV SCH (10:00)
[2023-09-14 12:00] VITALS: BP 169/71; TEMP 97.5; O2SAT 98
[2023-09-14 16:00] VITALS: BP_SYST 151; BP_SYST 161; BP_DIAS 74; BP_DIAS 75; TEMP 97.6; O2SAT 100
[2023-09-14 20:00] VITALS: BP 179/65; TEMP 98.8; O2SAT 100
[2023-09-15] VITALS: BP 137/66; TEMP 98.6; O2SAT 100
[2023-09-15 04:00] VITALS: BP 137/66; TEMP 98.8; O2SAT 100
[2023-09-15 06:58] LABS: BASOPHILS % (AUTO) 0.3 % (0.0-2.0); EOSINOPHILS # (AUTO) 0.1 K/uL (0.0-0.7); EOSINOPHILS % (AUTO) 1.3 % (0.0-6.0); HEMATOCRIT 32 % (33-45); HEMOGLOBIN 10.4 g/dL (11.5-14.8); LYMPHOCYTES # (AUTO) 2.7 K/uL (0.8-4.8); LYMPHOCYTES % (AUTO) 31.5 % (20.0-44.0); MEAN CORPUSCULAR HEMOGLOBIN 27 PG (26.0-33.0); MEAN CORPUSCULAR HGB CONC 33 g/dl (31.0-36.0); MEAN CORPUSCULAR VOLUME 83 fL (82-100); MONOCYTES # (AUTO) 0.8 K/uL (0.1-1.30); MONOCYTES % (AUTO) 9.6 % (2.0-12.0); NEUTROPHILS # (AUTO) 4.9 K/uL (1.8-8.9); NEUTROPHILS % (AUTO) 57.3 % (43.0-81.0); PLATELET COUNT (AUTO) 167 K/uL (150-450); RED BLOOD CELL COUNT(AUTO) 3.87 MIL/uL (4.0-5.2); WHITE BLOOD COUNT (AUTO) 8.6 K/uL (4.3-11.0)
[2023-09-15 07:24] LABS: CALCIUM, SERUM 8.9 mg/dL (8.5-10.1); CREATININE 0.9 mg/dL (0.6-1.3); POTASSIUM 3.5 mmol/L (3.5-5.1)
[2023-09-15 08:00] VITALS: BP 171/66; TEMP 99.9; O2SAT 97
[2023-09-15 16:00] VITALS: BP 146/82; TEMP 97.5; O2SAT 98
[2023-09-15] MEDS: VALSARTAN 80 MG TABLET PO SCH (16:15)
[2023-09-16] VITALS: BP 155/81; TEMP 98.1; O2SAT 99
[2023-09-16] MEDS: hydrALAZINE HCL IV 20 MG VIAL IV PRN (04:32)
[2023-09-16 08:00] VITALS: BP 161/82; TEMP 97.1; O2SAT 99
[2023-09-16 16:00] VITALS: BP 173/74; TEMP 97.9; O2SAT 98
[2023-09-17 04:00] VITALS: BP 186/72; TEMP 98; O2SAT 95
[2023-09-17 07:25] LABS: CALCIUM, SERUM 8.7 mg/dL (8.5-10.1); CREATININE 0.9 mg/dL (0.6-1.3); PHOSPHORUS 3.3 mg/dL (2.5-4.9); POTASSIUM 3.1 mmol/L (3.5-5.1)
[2023-09-17 07:26] LABS: BASOPHILS % (AUTO) 0.2 % (0.0-2.0); EOSINOPHILS # (AUTO) 0.1 K/uL (0.0-0.7); EOSINOPHILS % (AUTO) 0.9 % (0.0-6.0); HEMATOCRIT 33 % (33-45); HEMOGLOBIN 10.6 g/dL (11.5-14.8); LYMPHOCYTES # (AUTO) 2.5 K/uL (0.8-4.8); LYMPHOCYTES % (AUTO) 28.3 % (20.0-44.0); MEAN CORPUSCULAR HEMOGLOBIN 27 PG (26.0-33.0); MEAN CORPUSCULAR HGB CONC 33 g/dl (31.0-36.0); MEAN CORPUSCULAR VOLUME 82 fL (82-100); MONOCYTES # (AUTO) 0.9 K/uL (0.1-1.30); MONOCYTES % (AUTO) 9.6 % (2.0-12.0); NEUTROPHILS # (AUTO) 5.4 K/uL (1.8-8.9); PLATELET COUNT (AUTO) 162 K/uL (150-450); RED BLOOD CELL COUNT(AUTO) 3.95 MIL/uL (4.0-5.2); RED CELL DISTRIBUTION WIDTH 15.9 % (11.5-15.0); WHITE BLOOD COUNT (AUTO) 8.9 K/uL (4.3-11.0)
[2023-09-17 07:39] LABS: MAGNESIUM 1.7 mg/dL (1.8-2.4)
[2023-09-17] MEDS: MAGNESIUM OXIDE 400 MG TABLET PO ONE (09:14)
[2023-09-17] MEDS: POTASSIUM CHLORIDE 20 MEQ TAB.PRT.SR PO SCH (10:48)
[2023-09-17 12:00] VITALS: BP 154/55; TEMP 98; O2SAT 97
[2023-09-17 20:00] VITALS: BP 160/64; TEMP 99.6; O2SAT 97
[2023-09-18 04:00] VITALS: BP 157/67; TEMP 99.3; O2SAT 95
[2023-09-18 07:03] LABS: BASOPHILS % (AUTO) 0.3 % (0.0-2.0); EOSINOPHILS # (AUTO) 0.1 K/uL (0.0-0.7); EOSINOPHILS % (AUTO) 0.6 % (0.0-6.0); HEMATOCRIT 32 % (33-45); HEMOGLOBIN 10.5 g/dL (11.5-14.8); LYMPHOCYTES # (AUTO) 2.3 K/uL (0.8-4.8); LYMPHOCYTES % (AUTO) 20.6 % (20.0-44.0); MEAN CORPUSCULAR HEMOGLOBIN 27 PG (26.0-33.0); MEAN CORPUSCULAR HGB CONC 33 g/dl (31.0-36.0); MEAN CORPUSCULAR VOLUME 83 fL (82-100); MONOCYTES % (AUTO) 9.1 % (2.0-12.0); NEUTROPHILS # (AUTO) 7.7 K/uL (1.8-8.9); NEUTROPHILS % (AUTO) 69.4 % (43.0-81.0); PLATELET COUNT (AUTO) 164 K/uL (150-450); RED BLOOD CELL COUNT(AUTO) 3.87 MIL/uL (4.0-5.2); RED CELL DISTRIBUTION WIDTH 16.2 % (11.5-15.0); WHITE BLOOD COUNT (AUTO) 11.1 K/uL (4.3-11.0)
[2023-09-18 07:55] LABS: CALCIUM, SERUM 8.5 mg/dL (8.5-10.1); CARBON DIOXIDE 24 mmol/L (21-32); CHLORIDE 104 mmol/L (98-107); CREATININE 0.9 mg/dL (0.6-1.3); GLUCOSE 193 mg/dL (74-106); MAGNESIUM 1.4 mg/dL (1.8-2.4); PHOSPHORUS 2.9 mg/dL (2.5-4.9); POTASSIUM 3.4 mmol/L (3.5-5.1); SODIUM SERUM 137 mmol/L (136-145); UREA NITROGEN, BLOOD 14 mg/dL (7-18)
[2023-09-18] MEDS: POTASSIUM CHLORIDE 20 MEQ POWDER PACKET PO ONE (09:21)
[2023-09-18] MEDS: MAGNESIUM OXIDE 400 MG TABLET PO SCH (11:51)
[2023-09-18 12:00] VITALS: BP 149/66; TEMP 97.6; O2SAT 99
[2023-09-18 20:00] VITALS: BP 158/56; TEMP 98.6; O2SAT 99
[2023-09-19 04:00] VITALS: BP 161/67; TEMP 97.8; O2SAT 98
[2023-09-19 06:00] VITALS: BP 134/68
[2023-09-19 06:05] VITALS: BP 159/81
[2023-09-19 09:35] LABS: BASOPHILS % (AUTO) 0.2 % (0.0-2.0); EOSINOPHILS % (AUTO) 0.4 % (0.0-6.0); HEMATOCRIT 32 % (33-45); HEMOGLOBIN 10.2 g/dL (11.5-14.8); LYMPHOCYTES % (AUTO) 16.1 % (20.0-44.0); MEAN CORPUSCULAR HEMOGLOBIN 26 PG (26.0-33.0); MEAN CORPUSCULAR HGB CONC 32 g/dl (31.0-36.0); MEAN CORPUSCULAR VOLUME 83 fL (82-100); MONOCYTES # (AUTO) 1.1 K/uL (0.1-1.30); MONOCYTES % (AUTO) 8.4 % (2.0-12.0); NEUTROPHILS # (AUTO) 9.5 K/uL (1.8-8.9); NEUTROPHILS % (AUTO) 74.9 % (43.0-81.0); PLATELET COUNT (AUTO) 159 K/uL (150-450); RED BLOOD CELL COUNT(AUTO) 3.86 MIL/uL (4.0-5.2); RED CELL DISTRIBUTION WIDTH 15.7 % (11.5-15.0); WHITE BLOOD COUNT (AUTO) 12.6 K/uL (4.3-11.0)
[2023-09-19 10:04] LABS: CALCIUM, SERUM 9.5 mg/dL (8.5-10.1); CREATININE 0.8 mg/dL (0.6-1.3); MAGNESIUM 1.5 mg/dL (1.8-2.4); PHOSPHORUS 3.1 mg/dL (2.5-4.9); POTASSIUM 3.5 mmol/L (3.5-5.1)
[2023-09-19 16:00] VITALS: BP 166/52; TEMP 98.4; O2SAT 100
[2023-09-19 20:00] VITALS: BP 146/58; TEMP 99.5; O2SAT 98
[2023-09-20 04:00] VITALS: BP 142/52; TEMP 98.2; O2SAT 98
[2023-09-20 08:00] VITALS: BP 178/74; TEMP 98.4; O2SAT 99
[2023-09-20 08:52] VITALS: BP 178/74
[2023-09-20 09:02] LABS: CALCIUM, SERUM 8.5 mg/dL (8.5-10.1); CREATININE 0.8 mg/dL (0.6-1.3); PHOSPHORUS 3.2 mg/dL (2.5-4.9); POTASSIUM 3.9 mmol/L (3.5-5.1)
[2023-09-20] MEDS ORDERED: IOHEXOL-350 100 ML VIAL IV ONE (10:41)
[2023-09-20] MEDS ORDERED: IV NS 0.9% 250 ML IV ONE (10:41)
[2023-09-20 13:31] LABS: BASOPHILS % (AUTO) 0.3 % (0.0-2.0); EOSINOPHILS # (AUTO) 0.1 K/uL (0.0-0.7); EOSINOPHILS % (AUTO) 1.1 % (0.0-6.0); HEMATOCRIT 32 % (33-45); HEMOGLOBIN 10.6 g/dL (11.5-14.8); LYMPHOCYTES % (AUTO) 23.5 % (20.0-44.0); MEAN CORPUSCULAR HEMOGLOBIN 27 PG (26.0-33.0); MEAN CORPUSCULAR HGB CONC 33 g/dl (31.0-36.0); MEAN CORPUSCULAR VOLUME 82 fL (82-100); MONOCYTES # (AUTO) 0.8 K/uL (0.1-1.30); MONOCYTES % (AUTO) 9.1 % (2.0-12.0); NEUTROPHILS # (AUTO) 5.7 K/uL (1.8-8.9); PLATELET COUNT (AUTO) 155 K/uL (150-450); RED BLOOD CELL COUNT(AUTO) 3.89 MIL/uL (4.0-5.2); RED CELL DISTRIBUTION WIDTH 15.5 % (11.5-15.0); WHITE BLOOD COUNT (AUTO) 8.6 K/uL (4.3-11.0)
== END 2023-09-20 17:20 | DRG 48 ==
LOC: ER 20:37 → TELE1 22:54 → MEDSG1 09-15 11:32
PROVIDERS: ATTEND Student in an Organized Health Care Education/Training Program
PROC: 05HC33Z Insertion of Infusion Device into Left Basilic Vein, Percutaneous Approach (ICD-10-PCS; principal; 2023-09-13)
PROC: B54NZZA Ultrasonography of Left Upper Extremity Veins, Guidance (ICD-10-PCS; 2023-09-13)
DX: G90.8 Other disorders of autonomic nervous system (principal); N17.0 Acute kidney failure with tubular necrosis; E44.0 Moderate protein-calorie malnutrition; E86.0 Dehydration; K21.9 Gastro-esophageal reflux disease without esophagitis; E78.5 Hyperlipidemia, unspecified; E83.42 Hypomagnesemia; E87.6 Hypokalemia; H40.9 Unspecified glaucoma; Z79.4 Long term (current) use of insulin; Z20.822 Contact with and (suspected) exposure to COVID-19; I77.1 Stricture of artery; M19.90 Unspecified osteoarthritis, unspecified site; I69.354 Hemiplegia and hemiparesis following cerebral infarction affecting left non-dominant side; E88.09 Other disorders of plasma-protein metabolism, not elsewhere classified; F32.A Depression, unspecified; I10 Essential (primary) hypertension; E11.42 Type 2 diabetes mellitus with diabetic polyneuropathy; E11.649 Type 2 diabetes mellitus with hypoglycemia without coma; Z68.27 Body mass index [BMI] 27.0-27.9, adult; I65.23 Occlusion and stenosis of bilateral carotid arteries
CPT/HCPCS: 36415; 70450-TC; 70498-TC; 71045-TC; 80048-TC; 80061-TC; 80076-TC; 82728-TC; 82962-TC; 83540-TC; 83735-TC; 84100-TC; 84439-TC; 84443-TC; 84484-TC; 85025-TC; 85730-TC; 93307-TC; 93880-TC; 97110-TC; 97112-TC; 97116-TC; 97530-TC; 97535-TC; A4223; G0378; J0360; J1815; J3475; J7030; J7042; J7050; Q9967

== ENCOUNTER 2023-11-08 19:54 | Inpatient (IN) | payer OTHER ==
[~2023-11-08] VITALS: Ht 167.6 cm; Wt 79.8 kg
[~2023-11-08 19:54] MED LIST changes: +ASPI-1420 GT; -ASPI-1420 PO; +ATOR10TA GT; -ATOR10TA PO; +DOCU100C58 GT; -DOCU100C58 PO
[2023-11-08] MEDS ORDERED: ACETAMINOPHEN 650 MG/SUPP.RECT RC ONE (20:36)
[2023-11-08] MEDS ORDERED: ONDANSETRON HCL/PF 4 MG/2 ML VIAL ONE (20:36)
[2023-11-08] MEDS ORDERED: VANCOMYCIN 1 GM /D5W 250 ML PB IV ONE (20:38)
[2023-11-08] MEDS ORDERED: CEFEPIME 1 GM VIAL ONE (20:38)
[2023-11-08] MEDS: IV LR 1000 ML 1,000 ML BAG IV ONE (21:00)
[2023-11-08] MEDS: CEFEPIME 1 GM in IV D5W 50 ML IV ONE (21:15)
[2023-11-08 21:24] LABS: BASOPHILS % (AUTO) 0.1 % (0.0-2.0); EOSINOPHILS % (AUTO) 0.3 % (0.0-6.0); HEMATOCRIT 35 % (33-45); HEMOGLOBIN 11.4 g/dL (11.5-14.8); LYMPHOCYTES # (AUTO) 1.6 K/uL (0.8-4.8); LYMPHOCYTES % (AUTO) 14.7 % (20.0-44.0); MEAN CORPUSCULAR HEMOGLOBIN 27 PG (26.0-33.0); MEAN CORPUSCULAR HGB CONC 32 g/dl (31.0-36.0); MEAN CORPUSCULAR VOLUME 83 fL (82-100); MONOCYTES # (AUTO) 0.5 K/uL (0.1-1.30); MONOCYTES % (AUTO) 5.1 % (2.0-12.0); NEUTROPHILS # (AUTO) 8.5 K/uL (1.8-8.9); NEUTROPHILS % (AUTO) 79.8 % (43.0-81.0); PLATELET COUNT (AUTO) 212 K/uL (150-450); RED BLOOD CELL COUNT(AUTO) 4.28 MIL/uL (4.0-5.2); RED CELL DISTRIBUTION WIDTH 16.1 % (11.5-15.0); WHITE BLOOD COUNT (AUTO) 10.7 K/uL (4.3-11.0)
[2023-11-08] MEDS: ACETAMINOPHEN 650 MG/SUPP.RECT RC ONE (21:27)
[2023-11-08] MEDS: ONDANSETRON HCL/PF 4 MG/2 ML VIAL IVP ONE (21:30)
[2023-11-08] MEDS: VANCOMYCIN 1 GM in IV D5W 250 ML IV ONE (21:30)
[2023-11-08 21:48] LABS: CALCIUM, SERUM 9.3 mg/dL (8.5-10.1); CARBON DIOXIDE 21 mmol/L (21-32); CHLORIDE 100 mmol/L (98-107); CREATININE 1.2 mg/dL (0.6-1.3); GLUCOSE 316 mg/dL (74-106); POTASSIUM 5.8 mmol/L (3.5-5.1); SODIUM SERUM 136 mmol/L (136-145); UREA NITROGEN, BLOOD 35 mg/dL (7-18)
[2023-11-08 21:54] LABS: ALANINE AMINOTRANSFERASE 107 U/L (12-78); ALBUMIN 1.9 g/dL (3.4-5.0); ALKALINE PHOSPHATASE 127 U/L (46-116); ASPARTATE AMINOTRANSFERASE 68 U/L (15-37); BILIRUBIN,DIRECT 0.1 mg/dL (0.0-0.2); BILIRUBIN,TOTAL 0.3 mg/dL (0.2-1.0); TOTAL PROTEIN, SERUM 7.5 g/dL (6.4-8.2)
[2023-11-08 22:08] LABS: INR 1.08 (0.91-1.10); PARTIAL THROMBOPLASTIN TIME 25.4 SEC (24.3-34.3); PROTHROMBIN TIME 11.4 SECS (9.2-11.1)
[2023-11-08 22:09] LABS: APPEARANCE,URINE TURBID (CLEAR); BILIRUBIN,URINE NEGATIVE (NEGATIVE); BLOOD, URINE 3+ Ery/uL (NEGATIVE); KETONES,URINE NEGATIVE (NEGATIVE); LEUKOCYTE ESTERASE ,URINE 2+ (NEGATIVE); NITRITE, URINE POSITIVE (NEGATIVE); PROTEIN,URINE 3+ mg/dl (NEGATIVE); UGLUCOSE 2+ mg/dL (NEGATIVE)
[2023-11-08 22:14] LABS: COLOR,URINE LIGHT RED (YELLOW)
[2023-11-08 22:29] LABS: LACTIC ACID 4.4 mmol/L (0.4-2.0)
[2023-11-08] MEDS ORDERED: ONDANSETRON HCL/PF 4 MG/2 ML VIAL IVP PRN (23:30)
[2023-11-08] MEDS ORDERED: CEFEPIME 1 GM in IV D5W 50 ML IV SCH (23:30)
[2023-11-08] MEDS ORDERED: MAG HYDROX/AL HYDROX/SIMETH 30 ML UDC PO PRN (23:30)
[2023-11-08] MEDS ORDERED: MAGNESIUM HYDROXIDE 30 ML UDC PO PRN (23:30)
[2023-11-08] MEDS ORDERED: Z GUARD REMEDY 4 OZ OINT TP PRN (23:30)
[2023-11-09] MEDS ORDERED: INSULIN REGULAR, HUMAN 100 UNIT/ML 3 ML VIAL SQ PRN
[2023-11-09] MEDS: ALBUTEROL FS 2.5 MG/0.5 ML VIAL.NEB NEB ONE
[2023-11-09] MEDS: ENOXAPARIN SODIUM 40 MG/0.4 ML DISP.SYRIN SQ SCH (00:28)
[2023-11-09 00:30] VITALS: BP 169/105; TEMP 102.9; O2SAT 99
[2023-11-09] MEDS: ACETAMINOPHEN 325 MG TABLET PO PRN (00:38)
[2023-11-09 00:39] LABS: ADD URINE CULTURE YES; BACTERIA,URINE 1+ /HPF (None Seen); MUCUS,URINE Many /LPF (None Seen); RBC,URINE 21-50 /HPF (0-2)
[2023-11-09] MEDS: hydrALAZINE HCL IV 20 MG VIAL IV ONE (01:11)
[2023-11-09] MEDS: BLOOD SUGAR DIAGNOSTIC 1 EACH STRIP IN SCH ×2 (01:22→12:45)
[2023-11-09] MEDS: SODIUM POLYSTYRENE SULFONATE 15 G/60 ML BOTTLE RC ONE ×2 (01:42→04:07)
[2023-11-09] MEDS: LABETALOL HCL (100MG) 100 MG TABLET PO ONE (02:07)
[2023-11-09 02:40] LABS: CALCIUM, SERUM 9.2 mg/dL (8.5-10.1); CARBON DIOXIDE 24 mmol/L (21-32); CHLORIDE 100 mmol/L (98-107); CREATININE 1.2 mg/dL (0.6-1.3); GLUCOSE 345 mg/dL (74-106); POTASSIUM 5.2 mmol/L (3.5-5.1); SODIUM SERUM 134 mmol/L (136-145); UREA NITROGEN, BLOOD 32 mg/dL (7-18)
[2023-11-09] MEDS: IV NS 0.9% 1,000 ML IV SCH (03:51)
[2023-11-09 04:00] VITALS: BP 87/45; TEMP 98.1; O2SAT 100
[2023-11-09] MEDS: INSULIN REGULAR, HUMAN 100 UNIT/ML 10 ML VIAL IV ONE ×2 (04:37)
[2023-11-09 07:48] LABS: EOSINOPHILS # (AUTO) 0.1 K/uL (0.0-0.7); EOSINOPHILS % (AUTO) 1.1 % (0.0-6.0); HEMATOCRIT 29 % (33-45); HEMOGLOBIN 9.3 g/dL (11.5-14.8); LYMPHOCYTES # (AUTO) 1.6 K/uL (0.8-4.8); LYMPHOCYTES % (AUTO) 13.8 % (20.0-44.0); MEAN CORPUSCULAR HEMOGLOBIN 27 PG (26.0-33.0); MEAN CORPUSCULAR HGB CONC 32 g/dl (31.0-36.0); MEAN CORPUSCULAR VOLUME 82 fL (82-100); MONOCYTES # (AUTO) 6.2 K/uL (0.1-1.30); MONOCYTES % (AUTO) 52.1 % (2.0-12.0); NEUTROPHILS # (AUTO) 3.9 K/uL (1.8-8.9); PLATELET COUNT (AUTO) 178 K/uL (150-450); RED BLOOD CELL COUNT(AUTO) 3.52 MIL/uL (4.0-5.2); RED CELL DISTRIBUTION WIDTH 15.6 % (11.5-15.0); WHITE BLOOD COUNT (AUTO) 11.9 K/uL (4.3-11.0)
[2023-11-09 08:00] VITALS: BP 148/86; TEMP 98.5; O2SAT 100
[2023-11-09 08:15] LABS: CALCIUM, SERUM 8.8 mg/dL (8.5-10.1); CARBON DIOXIDE 21 mmol/L (21-32); CHLORIDE 101 mmol/L (98-107); CREATININE 1.3 mg/dL (0.6-1.3); GLUCOSE 328 mg/dL (74-106); MAGNESIUM 1.7 mg/dL (1.8-2.4); PHOSPHORUS 4.1 mg/dL (2.5-4.9); POTASSIUM 4.8 mmol/L (3.5-5.1); SODIUM SERUM 135 mmol/L (136-145); UREA NITROGEN, BLOOD 37 mg/dL (7-18)
[2023-11-09] MEDS ORDERED: ACET-2030 GT (08:32)
[2023-11-09] MEDS ORDERED: GLUC1KIT IM (08:32)
[2023-11-09] MEDS ORDERED: DIABETISOURCE AC GT (08:32)
[2023-11-09] MEDS ORDERED: MAG30ORA GT (08:32)
[2023-11-09] MEDS ORDERED: OMEP20CA15 GT (08:32)
[2023-11-09] MEDS ORDERED: MULT-213 GT (08:32)
[2023-11-09] MEDS ORDERED: METO50TA16 GT (08:32)
[2023-11-09] MEDS ORDERED: INSU100V30 SQ (08:32)
[2023-11-09] MEDS ORDERED: PROM12.513 GT (08:32)
[2023-11-09] MEDS ORDERED: [UNRECOGNIZED DRUG - OTHER] PO (08:32)
[2023-11-09] MEDS ORDERED: GUAI100S9 GT (08:32)
[2023-11-09] MEDS ORDERED: MAGNESIUM HYDROXIDE 30 ML UDC GT PRN (08:58)
[2023-11-09] MEDS ORDERED: ASPIRIN EC 81 MG TABLET.DR PO SCH (09:00)
[2023-11-09] MEDS ORDERED: DEXTROSE 50%-WATER 50 ML DISP.SYRIN IV PRN ×2 (09:00)
[2023-11-09] MEDS ORDERED: SERTRALINE HCL 50 MG TABLET PO SCH (09:00)
[2023-11-09] MEDS ORDERED: AMLODIPINE BESYLATE 10 MG TABLET GT SCH (09:00)
[2023-11-09] MEDS ORDERED: SERTRALINE HCL 50 MG TABLET GT SCH (09:00)
[2023-11-09] MEDS ORDERED: ACETAMINOPHEN ES 500 MG TABLET GT PRN (09:00)
[2023-11-09] MEDS ORDERED: PROMETHAZINE HCL 25 MG TABLET GT PRN (09:00)
[2023-11-09] MEDS ORDERED: AMLODIPINE BESYLATE 10 MG TABLET PO SCH (09:00)
[2023-11-09] MEDS ORDERED: DOCUSATE SODIUM 100 MG CAPSULE PO SCH (09:00)
[2023-11-09] MEDS ORDERED: MAG HYDROX/AL HYDROX/SIMETH 30 ML UDC GT PRN (09:00)
[2023-11-09] MEDS ORDERED: LABETALOL HCL (100MG) 100 MG TABLET PO SCH (09:00)
[2023-11-09] MEDS: ASPIRIN 81 MG TAB.CHEW GT SCH (09:31)
[2023-11-09] MEDS: DOCUSATE SODIUM LIQ 100 MG/10 ML UDC GT SCH (09:31)
[2023-11-09] MEDS: MULTIVITAMINS,THERAGRAN 1 UDTAB TABLET GT SCH (09:31)
[2023-11-09] MEDS: TIMOLOL MAL/DORZOLAM HCL OPHTH 10 ML BOTTLE EACHEYE SCH (09:31)
[2023-11-09] MEDS: METOPROLOL TARTRATE 50 MG TABLET GT SCH (09:32)
[2023-11-09] MEDS: CEFEPIME 1 GM in IV D5W 50 ML IV SCH (10:26)
[2023-11-09] MEDS: Magnesium 1GM/D5W 100ML PREMIX 100 ML IV SCH (11:17)
[2023-11-09] MEDS: GLUCERNA 1.2 1,000 ML BOTTLE NG PRN (11:30)
[2023-11-09] MEDS: INSULIN REGULAR, HUMAN 100 UNIT/ML 3 ML VIAL SQ PRN (12:47)
[2023-11-09 16:00] VITALS: BP 121/75; TEMP 99.1; O2SAT 99
[2023-11-09] MEDS: IV NS 0.9% 1,000 ML IV PRN (18:06)
[2023-11-09 18:53] LABS: CREATININE, URINE 188.1 MG/DL (30.0-125.0); URINE TOTAL PROTEIN 421.3 mg/dL (0-11.9)
[2023-11-09] MEDS ORDERED: CEFEPIME 1 GM in IV D5W 50 ML IV SCH (21:00)
[2023-11-09 21:06] VITALS: BP 116/59; TEMP 98.4; O2SAT 98
[2023-11-09] MEDS: VANCOMYCIN HCL 1.25 GM in IV D5W 250 ML IV SCH (21:50)
[2023-11-09] MEDS: ATORVASTATIN 10 MG TABLET GT SCH (21:50)
[2023-11-09] MEDS: LATANOPROST EYE DROP 0.005% 2.5 ML BOTTLE EACHEYE SCH (21:50)
[2023-11-09] MEDS ORDERED: GABAPENTIN 300 MG CAPSULE PO SCH (22:00)
[2023-11-10 08:00] VITALS: BP 136/67; TEMP 99.7; O2SAT 100
[2023-11-10] MEDS: Z GUARD REMEDY 4 OZ OINT TP SCH (08:37)
[2023-11-10 11:00] LABS: BASOPHILS % (AUTO) 0.1 % (0.0-2.0); EOSINOPHILS # (AUTO) 0.2 K/uL (0.0-0.7); EOSINOPHILS % (AUTO) 1.1 % (0.0-6.0); HEMATOCRIT 27 % (33-45); HEMOGLOBIN 8.5 g/dL (11.5-14.8); LYMPHOCYTES # (AUTO) 1.9 K/uL (0.8-4.8); LYMPHOCYTES % (AUTO) 12.6 % (20.0-44.0); MEAN CORPUSCULAR HEMOGLOBIN 26 PG (26.0-33.0); MEAN CORPUSCULAR HGB CONC 32 g/dl (31.0-36.0); MEAN CORPUSCULAR VOLUME 81 fL (82-100); MONOCYTES # (AUTO) 1.2 K/uL (0.1-1.30); MONOCYTES % (AUTO) 7.8 % (2.0-12.0); NEUTROPHILS % (AUTO) 78.4 % (43.0-81.0); PLATELET COUNT (AUTO) 167 K/uL (150-450); RED CELL DISTRIBUTION WIDTH 15.8 % (11.5-15.0); WHITE BLOOD COUNT (AUTO) 15.3 K/uL (4.3-11.0)
[2023-11-10 11:04] LABS: CARBON DIOXIDE 25 mmol/L (21-32); CHLORIDE 104 mmol/L (98-107); CREATININE 1.3 mg/dL (0.6-1.3); GLUCOSE 255 mg/dL (74-106); MAGNESIUM 2.1 mg/dL (1.8-2.4); PHOSPHORUS 4.6 mg/dL (2.5-4.9); SODIUM SERUM 138 mmol/L (136-145); UREA NITROGEN, BLOOD 47 mg/dL (7-18)
[2023-11-10 16:00] VITALS: BP 112/63; TEMP 98.6; O2SAT 99
[2023-11-10] MEDS: GUAIFENESIN 300 MG/15 ML UDC GT PRN (16:20)
[2023-11-10] MEDS: GLUCERNA 1.2 1,000 ML BOTTLE NG PRN (16:40)
[2023-11-10 20:00] VITALS: BP 124/70; TEMP 98.4; O2SAT 99
[2023-11-11] VITALS (8 sets, daily range): BP systolic 137–171; BP diastolic 72–100; TEMP 98.1–98.6; O2SAT 94–100
[2023-11-11 07:06] LABS: BASOPHILS % (AUTO) 0.1 % (0.0-2.0); EOSINOPHILS # (AUTO) 0.2 K/uL (0.0-0.7); EOSINOPHILS % (AUTO) 1.2 % (0.0-6.0); HEMATOCRIT 24 % (33-45); HEMOGLOBIN 7.7 g/dL (11.5-14.8); LYMPHOCYTES # (AUTO) 2.1 K/uL (0.8-4.8); LYMPHOCYTES % (AUTO) 11.8 % (20.0-44.0); MEAN CORPUSCULAR HEMOGLOBIN 26 PG (26.0-33.0); MEAN CORPUSCULAR HGB CONC 32 g/dl (31.0-36.0); MEAN CORPUSCULAR VOLUME 82 fL (82-100); MONOCYTES # (AUTO) 0.9 K/uL (0.1-1.30); MONOCYTES % (AUTO) 5.1 % (2.0-12.0); NEUTROPHILS # (AUTO) 14.8 K/uL (1.8-8.9); NEUTROPHILS % (AUTO) 81.8 % (43.0-81.0); PLATELET COUNT (AUTO) 187 K/uL (150-450); RED BLOOD CELL COUNT(AUTO) 2.94 MIL/uL (4.0-5.2); RED CELL DISTRIBUTION WIDTH 15.7 % (11.5-15.0); WHITE BLOOD COUNT (AUTO) 18.1 K/uL (4.3-11.0)
[2023-11-11 07:33] LABS: CALCIUM, SERUM 8.5 mg/dL (8.5-10.1); CARBON DIOXIDE 24 mmol/L (21-32); CHLORIDE 106 mmol/L (98-107); CREATININE 1.1 mg/dL (0.6-1.3); GLUCOSE 305 mg/dL (74-106); MAGNESIUM 2.1 mg/dL (1.8-2.4); POTASSIUM 4.1 mmol/L (3.5-5.1); SODIUM SERUM 140 mmol/L (136-145); UREA NITROGEN, BLOOD 46 mg/dL (7-18)
[2023-11-11] MEDS: ALBUTEROL FS 2.5 MG/3 ML VIAL.NEB NEB SCH (13:13)
[2023-11-11] MEDS: IPRATROPIUM NEB FS 0.5 MG/2.5 ML AMPUL.NEB NEB PRN (13:13)
[2023-11-11 13:23] LABS: THYROID STIMULATING HORMONE 1.62 uIU/mL (0.358-3.74)
[2023-11-11] MEDS: MEROPENEM 500 MG in IV NS 0.9% 50 ML IV SCH (21:22)
[2023-11-12] VITALS (11 sets, daily range): BP systolic 107–152; BP diastolic 59–90; TEMP 98.4–99; O2SAT 96–100
[2023-11-12 08:14] LABS: CALCIUM, SERUM 8.5 mg/dL (8.5-10.1); CARBON DIOXIDE 24 mmol/L (21-32); CHLORIDE 107 mmol/L (98-107); CREATININE 1.1 mg/dL (0.6-1.3); GLUCOSE 342 mg/dL (74-106); POTASSIUM 4.3 mmol/L (3.5-5.1); SODIUM SERUM 143 mmol/L (136-145); UREA NITROGEN, BLOOD 40 mg/dL (7-18)
[2023-11-12 09:09] LABS: FOLIC ACID 7.8 ng/mL (>3.0)
[2023-11-12] MEDS: IPRATROPIUM NEB FS 0.5 MG/2.5 ML AMPUL.NEB NEB SCH (09:30)
[2023-11-12] MEDS: ALBUTEROL HALF STRENGTH 1.25 MG/3 ML VIAL.NEB NEB SCH (09:30)
[2023-11-12 09:39] LABS: ABG BASE EXCESS -1.6 mmol/L (-2.0-2.0); ABG OXYGEN SATURATION 97.3 % (92.0-98.5); ABG PCO2 24.5 mmHg (35.0-45.0); ABG PH 7.537 (7.350-7.450); ABG PO2 98.7 mmHg (75.0-100.0); ABG TOTAL HEMOGLOBIN 8.2 G/dL (12.0-16.0); COHb 0.3 % (0.5-1.5); MetHb 0.3 % (0.0-1.5); O2Hb 96.7 % (94.0-97.0); SITE, ABG Right Radial; VENT MODE, BG 2L O2 NC
[2023-11-12] MEDS: MINERAL OIL 133 ML (PYXIS) 1 EA ENEMA RC ONE (09:47)
[2023-11-12] MEDS: Z GUARD REMEDY 4 OZ OINT TP PRN (10:11)
[2023-11-12] MEDS ORDERED: DIATR MEGLU/DIATRIZOATE SODIUM 30 ML BOTTLE (GASTROGRAPHIN) ONE (10:12)
[2023-11-12] MEDS: SENNOSIDES/DOCUSATE SODIUM 1 TAB TABLET GT SCH (21:56)
[2023-11-13] VITALS (12 sets, daily range): BP systolic 170–195; BP diastolic 78–96; TEMP 98.2–99.5; O2SAT 96–100
[2023-11-13 07:12] LABS: CALCIUM, SERUM 8.5 mg/dL (8.5-10.1); CARBON DIOXIDE 25 mmol/L (21-32); CHLORIDE 111 mmol/L (98-107); CREATININE 1.3 mg/dL (0.6-1.3); GLUCOSE 382 mg/dL (74-106); POTASSIUM 4.8 mmol/L (3.5-5.1); SODIUM SERUM 146 mmol/L (136-145); UREA NITROGEN, BLOOD 45 mg/dL (7-18)
[2023-11-13] MEDS: ACETAMINOPHEN 650 MG/20.3 ML UDC GT PRN (08:59)
[2023-11-13] MEDS: IV D5/ 0.9% NACL 1,000 ML IV PRN (12:41)
[2023-11-13] MEDS: CLONIDINE HCL 0.1 MG TABLET PEG PRN (21:44)
[2023-11-14] VITALS (18 sets, daily range): BP systolic 152–189; BP diastolic 65–105; TEMP 98.1–98.8; O2SAT 95–100
[2023-11-14] MEDS: CLONIDINE HCL 0.1 MG TABLET PEG PRN (05:05)
[2023-11-14 07:26] LABS: BASOPHILS % (AUTO) 0.2 % (0.0-2.0); EOSINOPHILS # (AUTO) 0.3 K/uL (0.0-0.7); HEMATOCRIT 24 % (33-45); HEMOGLOBIN 7.6 g/dL (11.5-14.8); LYMPHOCYTES # (AUTO) 2.1 K/uL (0.8-4.8); LYMPHOCYTES % (AUTO) 16.4 % (20.0-44.0); MEAN CORPUSCULAR HEMOGLOBIN 26 PG (26.0-33.0); MEAN CORPUSCULAR HGB CONC 32 g/dl (31.0-36.0); MEAN CORPUSCULAR VOLUME 82 fL (82-100); MONOCYTES # (AUTO) 0.6 K/uL (0.1-1.30); MONOCYTES % (AUTO) 4.6 % (2.0-12.0); NEUTROPHILS # (AUTO) 9.6 K/uL (1.8-8.9); NEUTROPHILS % (AUTO) 76.8 % (43.0-81.0); PLATELET COUNT (AUTO) 226 K/uL (150-450); RED BLOOD CELL COUNT(AUTO) 2.89 MIL/uL (4.0-5.2); RED CELL DISTRIBUTION WIDTH 16.2 % (11.5-15.0); WHITE BLOOD COUNT (AUTO) 12.5 K/uL (4.3-11.0)
[2023-11-14 07:47] LABS: CALCIUM, SERUM 8.6 mg/dL (8.5-10.1); CARBON DIOXIDE 33 mmol/L (21-32); CHLORIDE 110 mmol/L (98-107); CREATININE 0.9 mg/dL (0.6-1.3); GLUCOSE 370 mg/dL (74-106); MAGNESIUM 1.7 mg/dL (1.8-2.4); PHOSPHORUS 2.8 mg/dL (2.5-4.9); POTASSIUM 4.3 mmol/L (3.5-5.1); SODIUM SERUM 144 mmol/L (136-145); UREA NITROGEN, BLOOD 38 mg/dL (7-18)
[2023-11-14] MEDS: MAGNESIUM OXIDE 400 MG TABLET GT ONE (09:45)
[2023-11-15] VITALS (15 sets, daily range): BP systolic 167–179; BP diastolic 70–86; TEMP 98.2–99; O2SAT 98–100
[2023-11-15 07:04] LABS: CALCIUM, SERUM 8.3 mg/dL (8.5-10.1); CARBON DIOXIDE 26 mmol/L (21-32); CHLORIDE 110 mmol/L (98-107); CREATININE 0.9 mg/dL (0.6-1.3); GLUCOSE 323 mg/dL (74-106); POTASSIUM 4.7 mmol/L (3.5-5.1); SODIUM SERUM 146 mmol/L (136-145); UREA NITROGEN, BLOOD 32 mg/dL (7-18)
[2023-11-16] VITALS (15 sets, daily range): BP systolic 152–186; BP diastolic 61–86; TEMP 97.7–98.4; O2SAT 99–100
[2023-11-16 07:30] LABS: CALCIUM, SERUM 8.6 mg/dL (8.5-10.1); CARBON DIOXIDE 29 mmol/L (21-32); CHLORIDE 103 mmol/L (98-107); CREATININE 0.8 mg/dL (0.6-1.3); GLUCOSE 305 mg/dL (74-106); POTASSIUM 4.5 mmol/L (3.5-5.1); SODIUM SERUM 139 mmol/L (136-145); UREA NITROGEN, BLOOD 30 mg/dL (7-18)
[2023-11-16] MEDS: AMLODIPINE BESYLATE 5 MG TABLET PO SCH (10:40)
[2023-11-17] VITALS (11 sets, daily range): BP systolic 154–167; BP diastolic 51–72; TEMP 98.1–98.6; O2SAT 98–100
[2023-11-17 07:40] LABS: BASOPHILS % (AUTO) 0.2 % (0.0-2.0); EOSINOPHILS # (AUTO) 0.2 K/uL (0.0-0.7); EOSINOPHILS % (AUTO) 1.4 % (0.0-6.0); HEMATOCRIT 29 % (33-45); HEMOGLOBIN 9.2 g/dL (11.5-14.8); LYMPHOCYTES # (AUTO) 2.3 K/uL (0.8-4.8); LYMPHOCYTES % (AUTO) 18.8 % (20.0-44.0); MEAN CORPUSCULAR HEMOGLOBIN 26 PG (26.0-33.0); MEAN CORPUSCULAR HGB CONC 32 g/dl (31.0-36.0); MEAN CORPUSCULAR VOLUME 82 fL (82-100); MONOCYTES # (AUTO) 0.7 K/uL (0.1-1.30); MONOCYTES % (AUTO) 5.2 % (2.0-12.0); NEUTROPHILS # (AUTO) 9.2 K/uL (1.8-8.9); NEUTROPHILS % (AUTO) 74.4 % (43.0-81.0); PLATELET COUNT (AUTO) 268 K/uL (150-450); RED BLOOD CELL COUNT(AUTO) 3.53 MIL/uL (4.0-5.2); WHITE BLOOD COUNT (AUTO) 12.4 K/uL (4.3-11.0)
[2023-11-17 08:11] LABS: CALCIUM, SERUM 8.8 mg/dL (8.5-10.1); CARBON DIOXIDE 29 mmol/L (21-32); CHLORIDE 102 mmol/L (98-107); CREATININE 0.8 mg/dL (0.6-1.3); GLUCOSE 257 mg/dL (74-106); POTASSIUM 4.4 mmol/L (3.5-5.1); SODIUM SERUM 138 mmol/L (136-145); UREA NITROGEN, BLOOD 28 mg/dL (7-18)
[2023-11-18] VITALS (13 sets, daily range): BP systolic 150–162; BP diastolic 62–92; TEMP 97.5–98.4; O2SAT 93–100
[2023-11-19] VITALS (11 sets, daily range): BP systolic 149–158; BP diastolic 63–81; TEMP 97.5–98.4; O2SAT 94–100
[2023-11-19 07:41] LABS: CALCIUM, SERUM 8.8 mg/dL (8.5-10.1); CARBON DIOXIDE 30 mmol/L (21-32); CHLORIDE 103 mmol/L (98-107); CREATININE 0.9 mg/dL (0.6-1.3); GLUCOSE 312 mg/dL (74-106); POTASSIUM 4.3 mmol/L (3.5-5.1); SODIUM SERUM 139 mmol/L (136-145); UREA NITROGEN, BLOOD 30 mg/dL (7-18)
[2023-11-20] VITALS (11 sets, daily range): BP systolic 141–159; BP diastolic 60–72; TEMP 98.1–98.8; O2SAT 92–100
[2023-11-20 07:41] LABS: CALCIUM, SERUM 8.8 mg/dL (8.5-10.1); CARBON DIOXIDE 31 mmol/L (21-32); CHLORIDE 103 mmol/L (98-107); CREATININE 0.8 mg/dL (0.6-1.3); GLUCOSE 274 mg/dL (74-106); POTASSIUM 4.4 mmol/L (3.5-5.1); SODIUM SERUM 141 mmol/L (136-145); UREA NITROGEN, BLOOD 31 mg/dL (7-18)
[2023-11-21] VITALS (12 sets, daily range): BP systolic 135–157; BP diastolic 61–68; TEMP 97.3–98.6; O2SAT 94–100
[2023-11-21 06:44] LABS: CALCIUM, SERUM 9.1 mg/dL (8.5-10.1); CARBON DIOXIDE 25 mmol/L (21-32); CHLORIDE 104 mmol/L (98-107); CREATININE 0.8 mg/dL (0.6-1.3); GLUCOSE 260 mg/dL (74-106); POTASSIUM 4.4 mmol/L (3.5-5.1); SODIUM SERUM 139 mmol/L (136-145); UREA NITROGEN, BLOOD 33 mg/dL (7-18)
[2023-11-21] MEDS: BISACODYL SUPP (10 MG) 10 MG/SUPP.RECT SUPP.RECT RC PRN (17:33)
[2023-11-22] VITALS (9 sets, daily range): BP systolic 125–167; BP diastolic 65–69; TEMP 98.1–98.3; O2SAT 98–100
== END 2023-11-22 17:50 | disposition hospice, home (50) | DRG 720 ==
LOC: ER 20:02 → TELE 23:39 → MED 11-09 10:32
PROVIDERS: ATTEND Student in an Organized Health Care Education/Training Program
DX: A41.9 Sepsis, unspecified organism (principal); N17.0 Acute kidney failure with tubular necrosis; G93.41 Metabolic encephalopathy; J15.69 Pneumonia due to other Gram-negative bacteria; I21.A1 Myocardial infarction type 2; D68.59 Other primary thrombophilia; E87.0 Hyperosmolality and hypernatremia; E87.1 Hypo-osmolality and hyponatremia; D63.8 Anemia in other chronic diseases classified elsewhere; E87.20 Acidosis, unspecified; I69.354 Hemiplegia and hemiparesis following cerebral infarction affecting left non-dominant side; J15.9 Unspecified bacterial pneumonia; E11.40 Type 2 diabetes mellitus with diabetic neuropathy, unspecified; E83.42 Hypomagnesemia; Z93.1 Gastrostomy status; Z66 Do not resuscitate; I10 Essential (primary) hypertension; K21.9 Gastro-esophageal reflux disease without esophagitis; Z90.49 Acquired absence of other specified parts of digestive tract; Z79.4 Long term (current) use of insulin; Z79.82 Long term (current) use of aspirin; Z79.899 Other long term (current) drug therapy; H40.9 Unspecified glaucoma; H26.9 Unspecified cataract; M19.90 Unspecified osteoarthritis, unspecified site; Z98.890 Other specified postprocedural states; R65.20 Severe sepsis without septic shock; M89.8X9 Other specified disorders of bone, unspecified site; F01.50 Vascular dementia, unspecified severity, without behavioral disturbance, psychotic disturbance, mood disturbance, and anxiety; N39.0 Urinary tract infection, site not specified; R13.10 Dysphagia, unspecified; B96.89 Other specified bacterial agents as the cause of diseases classified elsewhere; E87.5 Hyperkalemia; M62.3 Immobility syndrome (paraplegic); T44.5X5A Adverse effect of predominantly beta-adrenoreceptor agonists, initial encounter; Y92.9 Unspecified place or not applicable; B96.20 Unspecified Escherichia coli [E. coli] as the cause of diseases classified elsewhere; E86.0 Dehydration; K56.41 Fecal impaction; Y95 Nosocomial condition; E11.65 Type 2 diabetes mellitus with hyperglycemia; Z86.018 Personal history of other benign neoplasm
CPT/HCPCS: 36415; 70450-TC; 71045-TC; 74018; 80048-TC; 80076-TC; 80202-TC; 81001; 82140-TC; 82570-TC; 82607-TC; 82962-TC; 83605-TC; 83735-TC; 83921; 84100-TC; 84300-TC; 84443-TC; 84484-TC; 85025-TC; 85730-TC; 87040-TC; 87081-TC; 87086-TC; 94760-TC; 94761-TC; 94762-TC; 94799-TC; 97110-TC; 97530-TC; 97535-TC; A4223; G0378; J0360; J0692; J1650; J1815; J2185; J2405; J3370; J3475; J7030; J7042; J7050; J7060; J7120; Q0169; Q9963